=== PATIENT | female | born 1940 | race Caucasian/White ===

== ENCOUNTER → 2020-08-07 13:11 | Outpatient (BNVA) | payer MEDICARE, SELFPAY | PROVIDERS: PCP Family Medicine; Referring Provider Family Medicine; Visit Provider Internal Medicine Cardiovascular Disease | DX: I25.10 Atherosclerotic heart disease of native coronary artery without angina pectoris (principal); I73.9 Peripheral vascular disease, unspecified; I10 Essential (primary) hypertension; E11.9 Type 2 diabetes mellitus without complications; Z79.82 Long term (current) use of aspirin; Z79.899 Other long term (current) drug therapy | CPT/HCPCS: 93005; 99212 ==

== ENCOUNTER 2021-03-07 09:22 | Outpatient (REF) | payer MEDICARE, SELFPAY ==
--- NOTE | ~2021-03-07 | MM_ITS ---
EXAMINATION: MM SCREENING DIGITAL BREAST TOMOSYNTHESIS, BILATERAL CLINICAL INFORMATION: Screening. Asymptomatic. The lifetime risk of breast cancer based on the Tyrer-Cuzick Model is 2%. COMPARISON: Mammography: 10/28/2019, 05/03/2018, 04/03/2017, 03/21/2016 TECHNIQUE: Digital breast tomosynthesis is performed in both the craniocaudal and mediolateral oblique views along with computer-aided detection (CAD). Synthesized 2D images are generated from the tomosynthesis. FINDINGS: There are scattered areas of fibroglandular density (ACR BI-RADS breast composition Category b). There are no significant masses, abnormal calcifications, or other abnormalities. Parenchymal pattern is similar to prior exams. Asymmetric density central 3:00 left breast is stable to decreased since 2016. There is some fine dermal deodorant artifact right axilla on MLO view. The axilla and skin contours are unremarkable. MM/MM tomosynthesis screening BI IMPRESSION: No mammographic evidence of malignancy. ASSESSMENT: BI-RADS 2: Benign RECOMMENDATION: Routine annual mammography screening. This patient's information was entered into a reminder system with a target due date for their next mammogram.
== END 2021-03-07 09:23 | disposition home or self-care (01) ==
LOC: HO.MAMMO 09:22
PROVIDERS: Visit Provider Family Medicine
DX: Z12.31 Encounter for screening mammogram for malignant neoplasm of breast (principal)
CPT/HCPCS: 77063; 77067

== ENCOUNTER → 2021-09-05 10:15 | Outpatient (BNVA) | payer MEDICARE, SELFPAY | PROVIDERS: PCP Family Medicine; Visit Provider Internal Medicine Cardiovascular Disease | DX: I25.10 Atherosclerotic heart disease of native coronary artery without angina pectoris (principal); I10 Essential (primary) hypertension | CPT/HCPCS: 93005; 99212 ==

== ENCOUNTER 2022-06-17 10:18 | Outpatient (REF) | payer MEDICARE, SELFPAY ==
--- NOTE | ~2022-06-17 | MM_ITS ---
EXAMINATION: MM SCREENING DIGITAL BREAST TOMOSYNTHESIS, BILATERAL CLINICAL INFORMATION: Screening. Asymptomatic. The lifetime risk of breast cancer based on the Tyrer-Cuzick Model is 1%. COMPARISON: Mammography: April 06, 2021 and studies dating back to August 25, 2013 TECHNIQUE: Digital breast tomosynthesis is performed in both the craniocaudal and mediolateral oblique views along with computer-aided detection (CAD). Synthesized 2D images are generated from the tomosynthesis. FINDINGS: There are scattered areas of fibroglandular density (ACR BI-RADS breast composition Category b). There are no significant masses, abnormal calcifications, or other abnormalities. MM/MM tomosynthesis screening BI IMPRESSION: No significant changes from prior exam. ASSESSMENT: BI-RADS 1: Negative RECOMMENDATION: Routine annual mammography screening. This patient's information was entered into a reminder system with a target due date for their next mammogram.
== END 2022-06-17 10:19 | disposition home or self-care (01) ==
LOC: HO.MAMMO 10:18
PROVIDERS: PCP Family Medicine; Visit Provider Family Medicine
DX: Z12.31 Encounter for screening mammogram for malignant neoplasm of breast (principal)
CPT/HCPCS: 77063; 77067

== ENCOUNTER → 2022-09-08 12:37 | Outpatient (BNVA) | payer MEDICARE, SELFPAY | PROVIDERS: PCP Family Medicine; Referring Provider Family Medicine; Visit Provider Internal Medicine Cardiovascular Disease | DX: I25.118 Atherosclerotic heart disease of native coronary artery with other forms of angina pectoris (principal); I10 Essential (primary) hypertension | CPT/HCPCS: 93005; 99212 ==

== ENCOUNTER → 2022-09-18 09:13 | Outpatient (REF) | payer MEDICARE, SELFPAY ==
--- NOTE | 2022-09-18 09:16 | CA_ITS ---
Transthoracic Echocardiogram Patient (Last, First, Middle): Anna Herrera C Gender: Female Date of : 1940 Age: 82 Procedure Date: 09/18/2022 Procedure Type: Transthoracic Echocardiogram Location: OP Height: 170.18 cm Weight: 74.84 kg BSA: 1.86 m2 Heart Rate: bpm BP: 120 / 72 mmHg District Administrative Assistant: MONY Referring MD: Severino Melendez MD Symptoms: I20.8 - Other forms of angina pectoris Study Quality: Fair ECG Rhythm: Sinus Conclusions: - The left ventricular systolic function is low normal. The visually estimated ejection fraction is between 50-55%. - There is evidence of regional wall motion abnormalities. - No obvious valvular pathology seen on this study. Findings Left Ventricle Normal left ventricular cavity size. The left ventricular systolic function is low normal. The visually estimated ejection fraction is between 50-55%. There is evidence of regional wall motion abnormalities. E/E prime ratio is >15, consistent with elevated filling pressures. Evidence suggests grade I (mild) diastolic dysfunction. There is mild septal and mild basal asymmetric hypertrophy. LV peak GLS -17.8%. Wall Motion Rest Echo Findings The mid inferoseptal and basal inferolateral segments are hypokinetic. The basal inferior and basal inferoseptal segments are akinetic. Atria Both atria are normal in size. Aortic Valve There is a normal trileaflet aortic valve. There is no aortic valve stenosis. There is no aortic valve regurgitation. Mitral Valve The mitral valve appears normal. There is no mitral valve regurgitation. There is no mitral valve stenosis. Pulmonic Valve The pulmonic valve is likely normal. Tricuspid Valve Normal tricuspid valve structure. There is trace tricuspid valve regurgitation. There is no evidence of pulmonary hypertension. Great Vessels The asc aorta is normal in size. Venous The inferior vena cava is normal in size and collapses greater than 50% with inspiration. Pericardium/Pleural There is no evidence of pericardial effusion. Prior Study Comparison No significant change compared to prior study dated: 01/14/2018. Recommendations, Care & Conclusions No obvious valvular pathology seen on this study. Measurements 2D Linear Measurements IVSd: 1.04 0.6-0.9/0.6-1.0 cm LVIDd: 4.92 3.9-5.3/4.2-5.9 cm LVIDd Index: 2.65 2.4-3.2/2.2-3.1 cm/m2 LVIDs: 3.66 2.0-3.6 cm LVPWd: 0.99 0.7-1.1 cm LA Diam: 3.20 2.7-3.8/3.0-4.0 cm LAIDs Index: 1.72 1.5-2.3 cm/m2 LV Mass: 225.57 67-162/88-224 g LV Mass Index: 121.28 43-95/49-115 g/m2 LVOT Diam: 2.10 3.0+(-)1.3 cm 2D Systolic Function EF 4C: 54.50 >55% EF 2C: 56.10 >55% EF BiP: 55.90 >55% Mitral Valve MV Pk E: 0.90 MV PK A: 1.06 MV Decel Time: 181.00 E/A: 0.80 E'Lateral: 5.98 E'Medial: 5.44 E/E' Med: 16.50 E/E' Lat: 15.10 PHT: 53.00 MVA PHT: 4.15 Decel [place]: 4.96 Aortic Valve AoV Pk Errol: 1.28 AoV Mn Errol: 0.97 AoV VTI: 0.35 AoV Pk Grad: 7.00 Aov Mn Grad: 4.00 RON Cont.VTI: 2.19 LVOT LVOT Pk Errol: 0.89 LVOT Mn Errol: 0.59 LVOT VTI: 0.22 LVOT Pk Grad: 3.00 LVOT Mn Grad: 2.00 LVOT Diam: 2.10 LVOT Area: 3.46 Diastolic Function MV Pk E: 0.90 MV Pk A: 1.06 E/A: 0.80 E'Medial: 5.44 E/E' Med: 16.50 E' Laterial: 5.98 E/E' Lat: 15.10 Right Ventricle TAPSE (mm): 23.50 TVS' Errol: 13.50 Tricuspid Valve TR Pk Errol: 2.61 TR Pk Grad: 27.00 RA Press: 3.00 RVSP: 30.00 Great Vessels Aorta Sinus of Valsalva: 3.14 2.0-3.[address] [place]: 2.02 1.7-3.4 cm Ao Asc: 3.10 2.1-3.4 cm Updated in Other Vendor System with Status of Final Connor Perez MD electronically signed on 09/19/2022 2:32:46 PM with status of Final
== END ==
LOC: HO.CARD 09:13
PROVIDERS: Visit Provider Internal Medicine Cardiovascular Disease
DX: I20.8 Other forms of angina pectoris (principal)
CPT/HCPCS: 93306; 93356

== ENCOUNTER → 2022-09-26 08:48 | Outpatient (REF) | payer MEDICARE, SELFPAY ==
--- NOTE | ~2022-09-26 | NM_ITS ---
EXERCISE MYOCARDIAL PERFUSION STUDY INDICATION: Shortness discomfort, possible angina, assess for ischemia. TECHNIQUE: The patient was brought in for an exercise perfusion study on 09/26/2022. Patient performed exercise as per [facility] protocol and was injected 25 mCi of sestamibi once target heart rate was achieved. Images were obtained using the SPECT gamma camera interlaced with the gating device. Images were obtained in supine position. Resting perfusion study was performed on 09/30/2022. Patient was administered 25 mCi of sestamibi intravenously at rest. Images were then obtained in supine position. Total DLP 80mGy-cm. Images were processed with the software and compared side to side in short axis, horizontal long axis and vertical long axis views. FINDINGS: Raw images were reviewed. The stress perfusion study showed mildly diminished tracer uptake in the basal part of inferior/inferolateral wall but otherwise unremarkable. There is improvement with CT attenuation correction overall suggestive of diaphragmatic attenuation artifact. The gated study shows normal LV systolic function with calculated LVEF of 68%. LV cavity is normal in size. The gated study shows normal wall thickening and contraction of segments. Resting study shows diminished tracer uptake in the distal part of anterior wall. However, this area is well perfused during stress acquisition and hence most likely artifactual. Diminished tracer uptake in the basal inferior wall that is still seen with CT attenuation correction. Gating at rest reveals normal wall motion with ejection fraction at 60%. The findings are consistent with no clear reversible or fixed perfusion defects. NM/NM rhett perf SPECT rest & str IMPRESSION: 1. Myocardial perfusion imaging study shows no clear evidence of any ischemia or infarction. Likely normal perfusion. 2. Gated LVEF is 68% during stress and 60% during rest. 3. Transient ischemic dilatation not present. EKG part of the test reported separately. Positive for ischemia. Correlate clinically.
== END ==
LOC: HO.CARD 08:48
PROVIDERS: PCP Family Medicine; Visit Provider Internal Medicine Cardiovascular Disease
DX: I20.8 Other forms of angina pectoris (principal)
CPT/HCPCS: 78452; 93017; A9500; J0280; J2785

== ENCOUNTER → 2022-10-15 14:07 | Outpatient (BNVA) | payer MEDICARE, SELFPAY | PROVIDERS: PCP Family Medicine; Referring Provider Family Medicine; Visit Provider Nurse Practitioner Family | DX: I25.118 Atherosclerotic heart disease of native coronary artery with other forms of angina pectoris (principal); I10 Essential (primary) hypertension; E78.5 Hyperlipidemia, unspecified; E11.9 Type 2 diabetes mellitus without complications; Z95.5 Presence of coronary angioplasty implant and graft | CPT/HCPCS: 99212 ==

== ENCOUNTER 2023-03-18 08:56 | Outpatient (REF) | payer MEDICARE, SELFPAY ==
[2023-03-18 09:11] LABS: MANUAL DIFF FLAG NO
[2023-03-18 09:30] LABS: Basophils Percent Auto 0.4 % (0-2); Eosinophils Absolute Auto 0.1 X10*3/uL (0.0-0.4); Eosinophils Percent Auto 1.7 % (0-4); Hematocrit 40.9 % (37.0-47.0); Hemoglobin 12.9 g/dl (12.0-16.0); Imm Gran Abs Auto 0.02 X10*3/uL (0.00-0.03); Imm Gran Pct Auto 0.4 % (0.0-0.4); Lymphocytes Absolute Auto 1.3 X10*3/uL (1.2-4.9); Lymphocytes Percent Auto 26.3 % (20-40); Mean Corpuscular HGB Conc 31.5 g/dl (31.0-35.0); Mean Corpuscular Hemoglobin 28.7 pg (27.0-33.0); Mean Corpuscular Volume 90.9 fL (80.0-98.0); Mean Platelet Volume 10.1 fL (9.4-12.3); Monocytes Absolute Auto 0.5 X10*3/uL (0.1-1.2); Monocytes Percent Auto 10.9 % (2-11); Neutrophils Absolute Auto 2.9 x10*3/uL (2.0-8.3); Neutrophils Percent Auto 60.3 % (45-73); Platelet Count 185 X10*3/uL (160-400); Red Cell Distribution Width 12.4 % (11.0-16.0); White Blood Count 4.8 X10*3/uL (4.8-10.8)
[2023-03-18 09:39] LABS: Estimated Average Glucose 157 mg/dL; Hemoglobin A1c % 7.1 %
[2023-03-18 10:16] LABS: Anion Gap 12 (12-20); Blood Urea Nitrogen 30 mg/dL (9-16); Carbon Dioxide 25 mmol/L (22-29); Chloride 108 mmol/L (96-108); Estimated Glomerular Filt Rate 40; Glucose Fasting 135 mg/dL (60-99); Potassium 4.8 mmol/L (3.3-5.1); Sodium 140 mmol/L (135-145)
[2023-03-18 10:36] LABS: Vitamin B12 432 pg/mL (200-900)
== END 2023-03-18 08:57 | disposition home or self-care (01) ==
LOC: HO.LAB 08:56
PROVIDERS: PCP Family Medicine; Visit Provider Family Medicine
DX: G62.9 Polyneuropathy, unspecified (principal); E11.9 Type 2 diabetes mellitus without complications; I10 Essential (primary) hypertension; R53.83 Other fatigue
CPT/HCPCS: 36415; 80051; 82565; 82607; 82947; 83036; 84520; 85025

== ENCOUNTER → 2023-04-08 09:40 | Outpatient (BNVA) | payer MEDICARE, SELFPAY | PROVIDERS: PCP Family Medicine; Referring Provider Family Medicine; Visit Provider Internal Medicine Cardiovascular Disease | DX: I25.10 Atherosclerotic heart disease of native coronary artery without angina pectoris (principal); I10 Essential (primary) hypertension | CPT/HCPCS: 99212 ==

== ENCOUNTER → 2023-07-09 23:59 | Outpatient (BNV) | payer MEDICARE, SELFPAY | PROVIDERS: PCP Family Medicine; Visit Provider Internal Medicine Cardiovascular Disease | DX: I21.4 Non-ST elevation (NSTEMI) myocardial infarction (principal) | CPT/HCPCS: 92928; 92978; 93458; 99152 ==

== ENCOUNTER 2023-07-27 15:57 | Outpatient (REF) | payer MEDICARE, SELFPAY ==
[2023-07-27 17:49] LABS: Alanine Aminotransferase 12 U/L (0-31); Anion Gap 13 (12-20); Aspartate Amino Transferase 13 U/L (5-31); Blood Urea Nitrogen 31 mg/dL (9-16); Carbon Dioxide 24 mmol/L (22-29); Chloride 110 mmol/L (96-108); Estimated Glomerular Filt Rate 22; Potassium 4.9 mmol/L (3.3-5.1); Sodium 142 mmol/L (135-145)
== END 2023-07-27 15:58 | disposition home or self-care (01) ==
LOC: HO.LAB 15:57
PROVIDERS: PCP Family Medicine; Visit Provider Family Medicine
DX: I10 Essential (primary) hypertension (principal); E78.00 Pure hypercholesterolemia, unspecified; D64.9 Anemia, unspecified; Z79.899 Other long term (current) drug therapy
CPT/HCPCS: 36415; 80051; 82550; 82565; 84450; 84460; 84520

== ENCOUNTER 2023-08-06 12:36 | Outpatient (AMB) | payer MEDICARE, SELFPAY ==
[2023-08-06 12:47] VITALS: BP 130/70; PULSE 80; BMI 25.5
--- NOTE | 2023-08-06 12:47 | A.OFFVIS_ITS ---
Intake Vital Signs 08/06/23 12:47 Height 5 ft 7 in Weight 163 lb 2.273 oz BMI 25.5 BP 130/70 Blood Pressure Location Lt brachial Position Sitting Pulse 80 Intake Visit Reasons: F/U Intake Note: Follow-up [facility] dc with ekg c/o dizziness Chemical Supervisor Required: No Allergies metformin Allergy (Unknown, Verified 10/15/22 14:21) gi lisinopril Adverse Reaction (Unknown, Verified 10/15/22 14:21) cough Statins Support Allergy (Unknown, Uncoded 06/09/19 00:00) mx Medication List - Last Reconciled 08/06/23 by Severino Melendez MD aspirin 81 mg PO DAILY clopidogrel (Plavix) 75 mg PO DAILY furosemide 20 mg PO ONCE PRN 90 days gabapentin 300 mg PO DAILY glimepiride 4 mg PO QAM rosuvastatin 40 mg PO DAILY sacubitril-valsartan 24-26 mg (Entresto) 1 tab PO BID 90 days HPI HPI Comments History of Present Illness Details Anna comes for follow-up after recent hospitalization with urosepsis with E coli bacteremia. Subsequently she developed dynamic EKG changes and elevated troponins consistent with NSTEMI. Echocardiogram done at that time showed LVEF of about 35% with regional wall motion abnormality and subsequent cardiac catheterization which showed diffuse coronary disease predominantly in the LAD system undergoing drug-eluting stent to mid to distal LAD. She also has diffuse and small-vessel disease in the OM branches as well as the diagonal branches. The RCA stent was patent. Since then she has been started on Entresto and carvedilol therapy not tolerating the therapy well. She has been having symptoms of lightheadedness and low blood pressure. We then advised her to come of the Entresto therapy due to elevated creatinine. Although she notices that she was better of carvedilol therapy. She is currently taking Entresto not taking carvedilol therapy. She denies any significant shortness of breath, orthopnea, PND, leg edema. Denies any anginal symptoms. Continues to have symptoms of lightheadedness. Comes for follow-up. Currently taking dual anti platelet therapy. She also complains of abdominal discomfort about 1-2 hours after she eats, these are new symptoms since the hospitalization. [facility] Medical History Exertional angina Hyperlipidemia HTN (hypertension) PVD (peripheral vascular disease) Diabetes mellitus CAD (coronary artery disease) Surgical History Stented coronary artery Review of Systems Const Denies chills, Denies fatigue, Denies fever(s), Denies frequent falls, Denies weakness, Denies weight gain and Denies weight loss ENT Denies dizziness Card Denies chest pain, Denies leg edema, Denies lightheadedness, Denies palpitations, Denies dyspnea, Denies dyspnea on exertion, Denies orthopnea and Denies other (loss of consciousness) Resp Denies cough, Denies dyspnea and Denies dyspnea on exertion GI Denies hematochezia and Denies change in stool character Musc Denies abnormal gait, Denies muscle weakness, Denies numbness, Denies radiating pain into limb and Denies tingling Neuro Denies abnormal gait, Denies dizziness, Denies frequent falls, Denies numbness, Denies tingling and Denies weakness Endo Denies fatigue and Denies palpitations Physical Exam Vital Signs: Last Vital Signs Pulse 80 08/06/23 12:47 BP 130/70 08/06/23 12:47 BMI result Body Mass Index 25.5 Const General: cooperative, healthy appearing, comfortable and no acute distress Orientation/consciousness: patient oriented x3 Neck Neck: Yes normal visual inspection and Yes no JVD Resp Effort & Inspection: normal respiratory effort Auscultation: clear to auscultation bilaterally, no crackles, no rales, no rhonchi and no wheezes Cardio Jugular venous distension: no JVD Rate: regular rate Rhythm: regular rhythm Heart sounds: S1 normal heart sound present, S2 normal heart sound present, no gallops, no murmurs and no rubs Bruits: carotid bruit bilaterally GI Inspection: Yes normal to inspection Neuro General: patient oriented x3 Extrem General: Yes normal to inspection Psych Appearance: grossly normal Mental Status: mental status grossly normal Speech and movement: Normal speech and movement present Office Procedures EKG Details: EKG shows normal sinus rhythm with PVCs with no significant Q-waves [id number], Complete Assessment & Plan Assessment & Plan (1) Ischemic cardiomyopathy: Code(s): I25.5 - Ischemic cardiomyopathy Plan: Patient with recent hospitalization with urosepsis subsequently developed dynamic EKG changes as well as LV systolic dysfunction with undergoing revascularization to LAD territory although component of her cardiomyopathy could be stress-induced. At this point time would advised to repeat limited echocardiogram in 4 weeks time. Recommend to stop Entresto as well as carvedilol therapy given that she is not tolerating them with low blood pressure. However she requires neurohormonal modulation will switch her to low- dose valsartan 40 mg b.i.d. and Toprol XL 25 mg daily. No signs or symptoms of heart failure. Advised to maintain adequate oral intake of fluids. Follow-up renal function in the near future. Signs and symptoms of heart failure were discussed and take diuretics as need be. (2) CAD (coronary artery disease): Code(s): I25.10 - Atherosclerotic heart disease of [place] coronary artery without angina pectoris Plan: Diffuse and significant CAD with drug-eluting stent to LAD with patent stents to the RCA for recent NSTEMI due to acute medical illness. Continue dual antipla telet therapy for 1 year uninterrupted. Continue aggressive vascular risk factor modification. Blood pressure is well optimized. Continue high-intensity statin therapy with target goal LDL less than 70 mg/dL. Advised lipid panel in 4 weeks time. Recommend phase 2 cardiac rehabilitation (3) Mesenteric angina: Code(s): K55.1 - Chronic vascular disorders of intestine Plan: Symptoms highly suggestive of mesenteric angina. Suggest abdominal vascular ultrasound to evaluate for the same. Further treatment based on the findings. If ultrasound is nondiagnostic may require abdominal CT runoff although given elevated creatinine will have to wait till her renal function improves. Will follow up in the clinic in 6 weeks time, sooner p.r.n.. Thank you for allowing me to partake in her care Orders: Orders Lipid Panel 4 Weeks I25.10 - Atherosclerotic heart disease of [place] coronary artery without angina pectoris US abdominal aortic aneurysm Today K55.1 - Chronic vascular disorders of intestine CA echo limited 4 Weeks I25.5 - Ischemic cardiomyopathy, I42.9 - Cardiomyopathy, unspecified Basic Metabolic Panel 4 Weeks I25.10 - Atherosclerotic heart disease of [place] coronary artery without angina pectoris Medications: New metoprolol succinate ER (Toprol XL) 25 mg PO DAILY 30 tabs 4RF valsartan 40 mg PO BID 60 tabs 4RF Discontinued sacubitril-valsartan 24-26 mg (Entresto) Discontinued Reason: Doctor's Order 1 tab PO BID 90 days 180 tabs 3RF Coding Level of Care Code Est Pt Level 4 (65687) Diagnoses Ischemic cardiomyopathy I25.5 CAD (coronary artery disease) I25.10 Mesenteric angina K55.1 CPT Codes EKG - CPT: 98943-[id number], Complete ([id number])
== END 2023-08-06 13:12 | disposition home or self-care (01) ==
PROVIDERS: PCP Family Medicine; Visit Provider Internal Medicine Cardiovascular Disease
DX: I25.5 Ischemic cardiomyopathy (principal); I25.10 Atherosclerotic heart disease of native coronary artery without angina pectoris; K55.1 Chronic vascular disorders of intestine
CPT/HCPCS: 93010; 99214

== ENCOUNTER → 2023-08-06 12:36 | Outpatient (BNVA) | payer MEDICARE, SELFPAY | PROVIDERS: PCP Family Medicine; Visit Provider Internal Medicine Cardiovascular Disease | DX: I25.5 Ischemic cardiomyopathy (principal); I25.10 Atherosclerotic heart disease of native coronary artery without angina pectoris; I10 Essential (primary) hypertension; K55.1 Chronic vascular disorders of intestine; Z95.5 Presence of coronary angioplasty implant and graft | CPT/HCPCS: 93005; 99212 ==

== ENCOUNTER 2023-09-04 11:39 | Outpatient (REF) | payer MEDICARE, SELFPAY ==
[2023-09-04 11:53] LABS: MANUAL DIFF FLAG NO
[2023-09-04 12:20] LABS: Basophils Percent Auto 0.4 % (0-2); Eosinophils Absolute Auto 0.1 X10*3/uL (0.0-0.4); Eosinophils Percent Auto 1.6 % (0-4); Hematocrit 32.6 % (37.0-47.0); Hemoglobin 10.1 g/dl (12.0-16.0); Imm Gran Abs Auto 0.01 X10*3/uL (0.00-0.03); Imm Gran Pct Auto 0.2 % (0.0-0.4); Lymphocytes Absolute Auto 1.2 X10*3/uL (1.2-4.9); Lymphocytes Percent Auto 21.2 % (20-40); Mean Corpuscular Hemoglobin 28.1 pg (27.0-33.0); Mean Corpuscular Volume 90.6 fL (80.0-98.0); Mean Platelet Volume 10.4 fL (9.4-12.3); Monocytes Absolute Auto 0.6 X10*3/uL (0.1-1.2); Monocytes Percent Auto 10.4 % (2-11); Neutrophils Absolute Auto 3.7 x10*3/uL (2.0-8.3); Neutrophils Percent Auto 66.2 % (45-73); Platelet Count 156 X10*3/uL (160-400); Red Cell Distribution Width 13.4 % (11.0-16.0); White Blood Count 5.6 X10*3/uL (4.8-10.8)
[2023-09-04 12:52] LABS: Estimated Average Glucose 174 mg/dL; Hemoglobin A1c % 7.7 % (<6.0)
[2023-09-04 12:53] LABS: Blood Urea Nitrogen 44 mg/dL (9-16); C Reactive Protein 4.53 mg/dL (< or = 0.50); Estimated Glomerular Filt Rate 16; Glucose Fasting 171 mg/dL (60-99)
[2023-09-04 13:01] LABS: Erythrocyte Sedimentation Rate 39 MM/HR (0-20)
[2023-09-04 13:12] LABS: Microalbum/Creatinine Ratio Ur 89.5 ug/mg cr (<30)
[2023-09-04 13:12] LABS: Free T4 (Free Thyroxine) 0.81 ng/dL (0.71-1.85)
== END 2023-09-04 11:40 | disposition home or self-care (01) ==
LOC: HO.LAB 11:39
PROVIDERS: PCP Family Medicine; Visit Provider Internal Medicine Cardiovascular Disease
DX: E11.9 Type 2 diabetes mellitus without complications (principal); R53.83 Other fatigue
CPT/HCPCS: 36415; 82043; 82565; 82570; 82947; 83036; 84439; 84520; 85025; 85652; 86140

== ENCOUNTER 2023-09-09 07:40 | Outpatient (REF) | payer MEDICARE, SELFPAY ==
--- NOTE | ~2023-09-09 | US_ITS ---
EXAMINATION: Ultrasound abdominal arterial Doppler CLINICAL INFORMATION: Mesenteric angina COMPARISON: None. TECHNIQUE: Doppler abdominal ultrasound was done to evaluate the visceral arteries for celiac artery compression syndrome. Grayscale, color Doppler, and spectral Doppler evaluation was performed with provocative maneuvers. FINDINGS: ABDOMINAL AORTA: Proximal to SMA: PSV 69 cm/s. Normal waveform. Distal to SMA: PSV 71 cm/s. Normal waveform. CELIAC ARTERY: Supine inspiration: PSV 318 cm/s. Monophasic waveform. Supine expiration: PSV 222 cm/s. Monophasic waveform. Erect inspiration: PSV 371 cm/s. Monophasic waveform. Erect expiration: PSV 422 cm/s. Monophasic waveform. SUPERIOR MESENTERIC ARTERY: Proximal: PSV 332 cm/s. Monophasic waveform. Mid: PSV 200 cm/s. Monophasic waveform. Distal: PSV 147 cm/s. Monophasic waveform. DA: Not seen. SPLENIC ARTERY: PSV 171 cm/s. Normal waveform. HEPATIC ARTERY: PSV 209 cm/s. Normal waveform. 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 DA not visible. These findings would predispose to mesenteric ischemia. Recommend CTA of the abdomen without and with contrast if clinically indicated.
--- NOTE | 2023-09-09 08:58 | CA_ITS ---
Transthoracic Echocardiogram Patient (Last, First, Middle): Anna Anderson C Gender: Female Date of : 1940 Age: 83 Procedure Date: 09/09/2023 Procedure Type: Transthoracic Echocardiogram Location: OP Height: 170.18 cm Weight: 73.48 kg BSA: 1.85 m2 Heart Rate: bpm BP: 125 / 57 mmHg Tobacco Blender: MONY Referring MD: Severino Melendez MD Symptoms: I42.9 - Cardiomyopathy, unspecified Study Quality: Adequate Conclusions: - The left ventricular systolic function is normal. The calculated ejection fraction is 57% by biplane method. - The basal inferoseptal and basal inferolateral segments are akinetic. - The basal inferior segment is dyskinetic. Findings Left Ventricle Normal left ventricular cavity size. There is mildly increased left ventricular wall thickness. The left ventricular systolic function is normal. The calculated ejection fraction is 57% by biplane method. There is evidence of regional wall motion abnormalities. LV peak GLS -13.7%. Wall Motion Rest Echo Findings The basal inferoseptal and basal inferolateral segments are akinetic. The basal inferior segment is dyskinetic. Venous The inferior vena cava is normal in size and collapses greater than 50% with inspiration. Prior Study Comparison Changes noted compared to prior study dated: 09/18/2022. Basal inferior wall looks dyskinetic, but image quality is also better. Prior images reviewed. Measurements 2D Linear Measurements IVSd: 1.08 0.6-0.9/0.6-1.0 cm LVIDd: 4.79 3.9-5.3/4.2-5.9 cm LVIDd Index: 2.59 2.4-3.2/2.2-3.1 cm/m2 LVIDs: 3.41 2.0-3.6 cm LVPWd: 1.08 0.7-1.1 cm LV Mass: 234.83 67-162/88-224 g LV Mass Index: 126.94 43-95/49-115 g/m2 LVOT Diam: 2.00 3.0+(-)1.3 cm 2D Systolic Function EF 4C: 58.30 >55% EF 2C: 53.20 >55% EF BiP: 57.10 >55% LVOT LVOT Pk Errol: 0.89 LVOT Mn Errol: 0.62 LVOT VTI: 0.19 LVOT Pk Grad: 3.00 LVOT Mn Grad: 2.00 LVOT Diam: 2.00 LVOT Area: 3.14 Tricuspid Valve RA Press: 3.00 Updated in Other Vendor System with Status of Final Connor Perez MD electronically signed on 09/10/2023 11:16:29 AM with status of Final
== END 2023-09-09 07:41 | disposition home or self-care (01) ==
LOC: HO.US 07:40
PROVIDERS: PCP Family Medicine; Visit Provider Internal Medicine Cardiovascular Disease
DX: I25.5 Ischemic cardiomyopathy (principal); I42.9 Cardiomyopathy, unspecified
CPT/HCPCS: 93308; 93356; 93976

== ENCOUNTER → 2023-09-09 08:58 | Outpatient (BNV) | payer MEDICARE, SELFPAY | PROVIDERS: PCP Family Medicine; Visit Provider Internal Medicine | DX: I42.9 Cardiomyopathy, unspecified (principal) | CPT/HCPCS: 93308 ==

== ENCOUNTER 2023-09-15 08:34 | Outpatient (REF) | payer MEDICARE, SELFPAY ==
[2023-09-15 09:32] LABS: Alanine Aminotransferase 11 U/L (0-31); Anion Gap 14 (12-20); Aspartate Amino Transferase 12 U/L (5-31); Blood Urea Nitrogen 36 mg/dL (9-16); Carbon Dioxide 26 mmol/L (22-29); Chloride 105 mmol/L (96-108); Estimated Glomerular Filt Rate 17; Magnesium 2.2 mg/dL (1.6-2.6); Potassium 4.8 mmol/L (3.3-5.1); Sodium 140 mmol/L (135-145)
[2023-09-15 16:16] LABS: MANUAL DIFF FLAG NO
[2023-09-15 17:07] LABS: Basophils Percent Auto 0.4 % (0-2); Eosinophils Absolute Auto 0.1 X10*3/uL (0.0-0.4); Eosinophils Percent Auto 1.1 % (0-4); Hematocrit 33.3 % (37.0-47.0); Hemoglobin 10.3 g/dl (12.0-16.0); Imm Gran Abs Auto 0.01 X10*3/uL (0.00-0.03); Imm Gran Pct Auto 0.2 % (0.0-0.4); Lymphocytes Absolute Auto 1.4 X10*3/uL (1.2-4.9); Lymphocytes Percent Auto 25.5 % (20-40); Mean Corpuscular HGB Conc 30.9 g/dl (31.0-35.0); Mean Corpuscular Hemoglobin 27.7 pg (27.0-33.0); Mean Corpuscular Volume 89.5 fL (80.0-98.0); Monocytes Absolute Auto 0.5 X10*3/uL (0.1-1.2); Monocytes Percent Auto 8.3 % (2-11); Neutrophils Absolute Auto 3.5 x10*3/uL (2.0-8.3); Neutrophils Percent Auto 64.5 % (45-73); Platelet Count 236 X10*3/uL (160-400); Red Blood Count 3.72 X10*6/uL (4.20-5.50); Red Cell Distribution Width 13.3 % (11.0-16.0); White Blood Count 5.5 X10*3/uL (4.8-10.8)
[2023-09-15 20:06] LABS: Anion Gap 16 (12-20); Blood Urea Nitrogen 36 mg/dL (9-16); Calcium 9.6 mg/dL (8.4-10.2); Carbon Dioxide 24 mmol/L (22-29); Chloride 105 mmol/L (96-108); Cholesterol 235 mg/dL (<200); Estimated Glomerular Filt Rate 17; Glucose Random 180 mg/dL (60-115); HDL Cholesterol 56 mg/dL (>40); LDL Cholesterol Calculated 161 mg/dL (<100); Potassium 4.9 mmol/L (3.3-5.1); Sodium 140 mmol/L (135-145); Triglycerides 93 mg/dL (<150)
== END 2023-09-15 08:35 | disposition home or self-care (01) ==
LOC: HO.LAB 08:34
PROVIDERS: Absent Provider Internal Medicine Cardiovascular Disease; PCP Family Medicine; Visit Provider Family Medicine
DX: I25.10 Atherosclerotic heart disease of native coronary artery without angina pectoris (principal); D64.9 Anemia, unspecified; I10 Essential (primary) hypertension; N17.9 Acute kidney failure, unspecified; R11.0 Nausea
CPT/HCPCS: 36415; 80048; 80051; 80061; 82565; 83735; 84450; 84460; 84520; 85025

== ENCOUNTER 2023-09-16 11:11 | Outpatient (AMB) | payer MEDICARE, SELFPAY ==
[2023-09-16 11:14] VITALS: BP 140/58; PULSE 58; BMI 25.3
--- NOTE | 2023-09-16 11:14 | MHC.OFFVIS ---
Intake Vital Signs 09/16/23 11:14 Height 5 ft 7 in Weight 161 lb 13.109 oz BMI 25.3 BP 140/58 H Blood Pressure Location Lt brachial Position Sitting Pulse 58 Pulse Source Pulse Oximeter Intake Visit Reasons: 6 wk fu after labs/ltd echo Intake Note: 6 wk f/up pt its feeling good Curtain Mender Required: No Accompanied by: Self / Same As Patient Allergies metformin Allergy (Unknown, Verified 09/16/23 11:16) gi lisinopril Adverse Reaction (Unknown, Verified 09/16/23 11:16) cough Statins Support Allergy (Unknown, Uncoded 06/09/19 00:00) mx Medication List - Last Reconciled 09/16/23 by Severino Melendez MD aspirin 81 mg PO DAILY clopidogrel (Plavix) 75 mg PO DAILY gabapentin 300 mg PO DAILY HPI HPI Comments History of Present Illness Details Anna comes for follow-up. She is currently off all vasoactive medications and says the lightheadedness has improved. Unfortunately her creatinine is still remains elevated. She denies any heart failure symptoms. Denies any exertional chest pain. She is vague about her mesenteric symptoms, says that sometimes she has postprandial discomfort but this morning she did not. 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 She is taking dual antiplatelet therapy regularly. Her most recent echocardiogram shows normalization for LV ejection fraction with wall motion abnormality in the circumflex territory [facility] Medical History Exertional angina Hyperlipidemia HTN (hypertension) PVD (peripheral vascular disease) Diabetes mellitus CAD (coronary artery disease) Surgical History Stented coronary artery Review of Systems Const Reports chills, Reports fatigue, Reports fever(s), Reports frequent falls, Reports weakness, Reports weight gain and Reports weight loss ENT Reports dizziness Card Reports chest pain, Reports leg edema, Reports lightheadedness, Reports palpitations, Reports dyspnea and Reports dyspnea on exertion Resp Reports cough, Reports dyspnea and Reports dyspnea on exertion GI Reports hematochezia Musc Reports abnormal gait, Reports muscle weakness, Reports numbness, Reports radiating pain into limb and Reports tingling Neuro Reports abnormal gait, Reports dizziness, Reports frequent falls, Reports numbness, Reports tingling and Reports weakness Endo Reports fatigue and Reports palpitations Physical Exam Vital Signs: Last Vital Signs Pulse 58 09/16/23 11:14 BP 140/58 H 09/16/23 11:14 BMI result Body Mass Index 25.3 Const General: cooperative, healthy appearing, comfortable and no acute distress Orientation/consciousness: patient oriented x3 Neck Neck: Yes normal visual inspection and Yes no JVD Resp Effort & Inspection: normal respiratory effort Auscultation: clear to auscultation bilaterally, no crackles, no rales, no rhonchi and no wheezes Cardio Jugular venous distension: no JVD Rate: regular rate Rhythm: regular rhythm Heart sounds: S1 normal heart sound present, S2 normal heart sound present, no gallops, no murmurs and no rubs Bruits: carotid bruit bilaterally GI Inspection: Yes normal to inspection Neuro General: patient oriented x3 Extrem General: Yes normal to inspection Psych Appearance: grossly normal Mental Status: mental status grossly normal Speech and movement: Normal speech and movement present Assessment & Plan Assessment & Plan (1) CAD (coronary artery disease): Code(s): I25.10 - Atherosclerotic heart disease of [place] coronary artery without angina pectoris Plan: Significant and diffuse [place] vascular atherosclerosis with mesenteric stenosis, coronary artery disease status post revascularization, peripheral vascular disease, possible high likelihood of renal artery stenosis. Patient is currently on dual antiplatelet therapy due to recent acute coronary syndrome. Could not tolerate any other medications at this point time. Blood pressure is labile but within adequate range with no persistent significant hypertension. Her LDL is not well optimized. She has intolerance to statins in the past with significant life-limiting muscular discomfort. At this point time I strongly suggest her to be on PCSK9 inhibitor therapy to prevent further vascular atherosclerotic events. Target goal LDL closer to 60 mg/dL. Blood pressure is optimal I would not change it. Diabetes under your care although she is currently not on any medications. Strongly recommend Nephrology consultation and also renal duplex to evaluate for renal artery stenosis. (2) Ischemic cardiomyopathy: Code(s): I25.5 - Ischemic cardiomyopathy Plan: Ischemic cardiomyopathy in the setting of acute coronary syndrome. Since revascularization to the LAD territory LV ejection fraction has improved. Good prognosis with this was discussed. This is despite patient being off neurohormonal modulation. Most likely suggest stunning of the myocardium at the time of acute coronary syndrome. High risk for recurrent events and development of cardiomyopathy. However at this point time given her advanced renal dysfunction would avoid any medication and also due to poor tolerance of hemodynamic perspective. Advised to monitor blood pressure closely at home. Will follow up in the clinic in 3 months time, sooner p.r.n.. Thank you for allowing me to partake in her care Coding Level of Care Code Est Pt Level 4 (39160) Diagnoses CAD (coronary artery disease) I25.10 Ischemic cardiomyopathy I25.5
== END 2023-09-16 11:38 | disposition home or self-care (01) ==
PROVIDERS: PCP Family Medicine; Visit Provider Internal Medicine Cardiovascular Disease
DX: I25.10 Atherosclerotic heart disease of native coronary artery without angina pectoris (principal); I25.5 Ischemic cardiomyopathy
CPT/HCPCS: 99214

== ENCOUNTER → 2023-09-16 11:11 | Outpatient (BNVA) | payer MEDICARE, SELFPAY | PROVIDERS: PCP Family Medicine; Visit Provider Internal Medicine Cardiovascular Disease | DX: I25.10 Atherosclerotic heart disease of native coronary artery without angina pectoris (principal); I25.5 Ischemic cardiomyopathy | CPT/HCPCS: 99212 ==

== ENCOUNTER 2023-10-14 09:36 | Outpatient (REF) | payer MEDICARE, SELFPAY ==
[2023-10-14 09:55] LABS: MANUAL DIFF FLAG NO
[2023-10-14 10:02] LABS: Basophils Percent Auto 0.4 % (0-2); Eosinophils Absolute Auto 0.1 X10*3/uL (0.0-0.4); Eosinophils Percent Auto 2.6 % (0-4); Hematocrit 34.1 % (37.0-47.0); Hemoglobin 11.1 g/dl (12.0-16.0); Imm Gran Abs Auto 0.01 X10*3/uL (0.00-0.03); Imm Gran Pct Auto 0.2 % (0.0-0.4); Lymphocytes Absolute Auto 1.2 X10*3/uL (1.2-4.9); Lymphocytes Percent Auto 22.1 % (20-40); Mean Corpuscular HGB Conc 32.6 g/dl (31.0-35.0); Mean Corpuscular Hemoglobin 29.3 pg (27.0-33.0); Mean Platelet Volume 10.7 fL (9.4-12.3); Monocytes Absolute Auto 0.5 X10*3/uL (0.1-1.2); Monocytes Percent Auto 10.1 % (2-11); Neutrophils Absolute Auto 3.5 x10*3/uL (2.0-8.3); Neutrophils Percent Auto 64.6 % (45-73); Platelet Count 193 X10*3/uL (160-400); Red Blood Count 3.79 X10*6/uL (4.20-5.50); Red Cell Distribution Width 13.5 % (11.0-16.0); White Blood Count 5.4 X10*3/uL (4.8-10.8)
[2023-10-14 10:09] LABS: Estimated Average Glucose 177 mg/dL; Hemoglobin A1c % 7.8 % (<6.0)
[2023-10-14 10:59] LABS: Anion Gap 15 (12-20); Blood Urea Nitrogen 29 mg/dL (9-16); Carbon Dioxide 24 mmol/L (22-29); Chloride 109 mmol/L (96-108); Estimated Glomerular Filt Rate 23; Glucose Fasting 185 mg/dL (60-99); Potassium 4.5 mmol/L (3.3-5.1); Sodium 143 mmol/L (135-145)
== END 2023-10-14 09:37 | disposition home or self-care (01) ==
LOC: HO.LAB 09:36
PROVIDERS: PCP Family Medicine; Visit Provider Family Medicine
DX: I10 Essential (primary) hypertension (principal); E11.9 Type 2 diabetes mellitus without complications; D64.9 Anemia, unspecified
CPT/HCPCS: 36415; 80051; 82565; 82947; 83036; 84520; 85025

== ENCOUNTER 2023-10-22 10:17 | Outpatient (AMB) | payer MEDICARE, SELFPAY ==
[2023-10-22 10:21] VITALS: BP 134/72; PULSE 78; O2SAT 96; BMI 25.1
--- NOTE | 2023-10-22 10:21 | MHC.OFFVIS ---
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 Pt states she is feeling well and denies any stomach pain, nausea, or any othher concerns at this time. 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 She reports that this all began after a hospital stay. She had reported sepsis and was admitted to [facility] for an extended period. She reports that she was unable to tolerate p.o. intake for nearly 13 days. She had lost a significant amount of weight during that. But has remained steady in her weight since that time. Prior to this event she reports no real difficulty with her p.o. intake but has never been able to really tolerate spicy foods. She he currently is able to tolerate a diet. She denies any food fear. She has had no weight loss. She is able to tolerate a carbohydrate rich meal such as pasta and denies any pain subsequent to that in particular a 1/2 hour post meal. She reports no difficulty at the current time. Of note she has a remote history of smoking where she quit in 2000 and prior to that was smoking about 1 pack per day. She has been a diabetic for nearly 15 years. She now presents to us for vascular evaluation. [facility] Medical History Exertional angina Hyperlipidemia HTN (hypertension) PVD (peripheral vascular disease) Diabetes mellitus CAD (coronary artery disease) Surgical History Stented coronary artery Social History Household Members: Children Housing: House Alcohol intake: never Patient Tobacco Use Status: Former Tobacco user Use of substances other than those prescribed or required for medical reasons: No Review of Systems Const All systems reviewed & are unremarkable except as noted in HPI and below Reports no additional complaints ENT Reports Normal hearing present Card Denies chest pain, Denies chest pain at rest, Denies chest pain with activity and Denies pedal edema Resp Denies cough GI Denies abdominal pain Musc Denies abnormal gait, Denies muscle cramps and Denies radiating pain into limb Skin/Breast Denies skin ulcer and Denies wounds Neuro Reports Normal hearing present and Denies abnormal gait Psych Reports no additional complaints Physical Exam Vital Signs: Last Vital Signs Pulse 78 10/22/23 10:21 BP 134/72 10/22/23 10:21 Pulse Ox 96 10/22/23 10:21 Oxygen Delivery Method Room Air 10/22/23 10:21 BMI result Body Mass Index 25.1 Const General: cooperative, healthy appearing and comfortable Orientation/consciousness: oriented to person, oriented to place and oriented to time HEENT Head: Yes normal to inspection Neck Neck: Yes normal visual inspection Carotids: no bruits Chest Chest palpation & inspection: normal inspection of the chest Resp Effort & Inspection: normal respiratory effort and able to speak in complete sentences Auscultation: clear to auscultation bilaterally, no crackles, no rales, no rhonchi and no wheezes Cardio Rate: regular rate Rhythm: regular rhythm Heart sounds: S1 normal heart sound present and S2 normal heart sound present Bruits: no carotid bruits Peripheral pulses: Peripheral pulses 2+ throughout GI Inspection: Yes normal to inspection Skin Wounds: no wounds Hair: normal Neuro General: oriented to person, oriented to place and oriented to time Cranial nerves: Yes CN's II-XII intact bilaterally and Yes Normal hearing present Cognition (Neuro): normal cognition Motor exam (neuro): 5/5 motor strength present throughout Extrem Other: venous exam: No significant superficial varicosities or spider telangiectasias, minimal edema General: No clubbing, No cyanosis and No edema Psych Appearance: grossly normal Mental Status: mental status grossly normal Speech and movement: Normal speech and movement present Results Reviewed Results Reviewed: Abdominal ultrasound dated 09/09/2023 demonstrates that the celiac and superior mesenteric artery we have monophasic waveforms. Assessment & Plan Assessment & Plan (1) Mesenteric ischemia: Code(s): K55.9 - Vascular disorder of intestine, unspecified Plan: In short there is ultrasound evidence of mesenteric ischemia. Clinically at the current time it does not appear that this is the case. She is tolerating a diet and maintaining weight appropriately. I have taken the liberty of ordering a CT angiogram to better evaluate this. She will follow up with us after testing. Thank you for allowing us to assist in her care. If there are any questions or concerns please do not hesitate to contact us. Orders: Orders Blood Urea Nitrogen Today K55.9 - Vascular disorder of intestine, unspecified Creatinine Today K55.9 - Vascular disorder of intestine, unspecified CT angio abdomen pelvis 1 Week K55.9 - Vascular disorder of intestine, unspecified Coding Level of Care Code Est Pt Level 4 (42787) Diagnoses Mesenteric ischemia K55.9
== END 2023-10-22 10:38 | disposition home or self-care (01) ==
PROVIDERS: PCP Family Medicine; Visit Provider Surgery Vascular Surgery
DX: K55.9 Vascular disorder of intestine, unspecified (principal)
CPT/HCPCS: 99204

== ENCOUNTER → 2023-10-22 10:17 | Outpatient (BNVA) | payer MEDICARE, SELFPAY | PROVIDERS: PCP Family Medicine; Visit Provider Surgery Vascular Surgery | DX: K55.9 Vascular disorder of intestine, unspecified (principal) | CPT/HCPCS: 99202 ==

== ENCOUNTER 2023-11-26 09:18 | Outpatient (REF) | payer MEDICARE, SELFPAY ==
--- NOTE | ~2023-11-26 | CT_ITS ---
EXAMINATION: CT ABDOMEN AND PELVIS WITHOUT CONTRAST CLINICAL INFORMATION: Vascular disorder COMPARISON: Ultrasound SMA from 09/09/2023 TECHNIQUE: Multidetector volumetric imaging was performed from the superior aspect of the liver through the pubic symphysis. Sagittal and coronal reformatted images were obtained on the technologist's workstation. This CT examination was performed using dose optimization techniques as appropriate, variously including the following: *Automated exposure control *Adjustment of mA and/or kV according to patient size (this includes techniques or standardized protocols for targeted exams where dose is matched to indication/reason for exam; i.e. extremities or head) *Use of iterative reconstruction technique DLP: 459 mGy-cm FINDINGS: LUNG BASES: Emphysematous changes. Bibasilar atelectasis. 2 mm nodule in the posterior lateral aspect right lower lobe (series 4, image 32). No pneumothorax. No large pleural effusion. LIVER, GALLBLADDER, AND BILIARY TREE: The liver is normal in size, shape, and attenuation. Hypodense focus right hepatic lobe measuring 6 mm too small to characterize though statistically representing a cyst. No focal hepatic lesion or biliary ductal dilatation is present. The gallbladder is unremarkable with no evidence of radiopaque gallstones, gallbladder wall thickening, or obvious pericholecystic inflammatory changes. PANCREAS: Unremarkable. SPLEEN: Unremarkable. ADRENAL GLANDS: Unremarkable. KIDNEYS AND URETERS AND BLADDER: Mild left-sided hydroureteronephrosis with periureteral and perinephric stranding secondary to a 7 mm calculus in the left distal ureter. No right-sided nephrolithiasis or hydronephrosis. BLADDER: Unremarkable. GASTROINTESTINAL TRACT: Small hiatal hernia. Colonic diverticulosis without acute diverticulitis. The small and large bowel are unremarkable. The appendix is not definitively visualized. ABDOMINAL WALL: Small fat filled umbilical hernia. LYMPH NODES: No enlarged lymph nodes per size criteria. VASCULAR: Abdominal aorta is nonaneurysmal. Prominent atherosclerotic calcifications of the abdominal aorta and its branches. Of note evaluation for SMA stenosis is limited secondary to lack of intravenous contrast. PELVIC VISCERA: Anteverted slightly retroflexed uterus with multiple calcifications within the fundus potentially representing calcified uterine fibroids. OSSEOUS STRUCTURES: Osteopenia. Multilevel degenerative changes of the thoracolumbar and lumbosacral spine. CT/CT abdomen pelvis wo IV con IMPRESSION: 1. Mild left-sided hydroureteronephrosis with periureteral and perinephric stranding secondary to a 7 mm calculus in the left distal ureter. 2. 2 mm nodule in the posterior lateral aspect right lower lobe. 3. Hypodense focus right hepatic lobe measuring 6 mm too small to characterize though statistically representing a cyst. 4. Small hiatal hernia. 5. Colonic diverticulosis without acute diverticulitis. 6. Anteverted slightly retroflexed uterus with multiple calcifications within the fundus potentially representing calcified uterine fibroids. 7. Osteopenia. This critical result was discussed with Lilly Suazo MA and Dr. Regan by telephone on 11/30/2023 12:32 PM and it was ascertained that the content and urgency of the report was understood at the time of direct communication.
== END 2023-11-26 09:19 | disposition home or self-care (01) ==
LOC: HO.CT 09:18
PROVIDERS: PCP Family Medicine; Visit Provider Surgery Vascular Surgery
DX: K55.9 Vascular disorder of intestine, unspecified (principal)
CPT/HCPCS: 74176

== ENCOUNTER 2023-12-28 12:09 | Outpatient (REF) | payer MEDICARE, SELFPAY ==
[2023-12-28 12:20] LABS: MANUAL DIFF FLAG NO
[2023-12-28 12:29] LABS: Basophils Percent Auto 0.4 % (0-2); Eosinophils Absolute Auto 0.1 X10*3/uL (0.0-0.4); Hematocrit 35.2 % (37.0-47.0); Hemoglobin 11.2 g/dl (12.0-16.0); Imm Gran Abs Auto 0.01 X10*3/uL (0.00-0.03); Imm Gran Pct Auto 0.2 % (0.0-0.4); Lymphocytes Percent Auto 20.2 % (20-40); Mean Corpuscular HGB Conc 31.8 g/dl (31.0-35.0); Mean Corpuscular Hemoglobin 28.6 pg (27.0-33.0); Mean Corpuscular Volume 89.8 fL (80.0-98.0); Mean Platelet Volume 9.8 fL (9.4-12.3); Monocytes Absolute Auto 0.5 X10*3/uL (0.1-1.2); Monocytes Percent Auto 9.9 % (2-11); Neutrophils Absolute Auto 3.4 x10*3/uL (2.0-8.3); Neutrophils Percent Auto 68.3 % (45-73); Platelet Count 181 X10*3/uL (160-400); Red Blood Count 3.92 X10*6/uL (4.20-5.50); Red Cell Distribution Width 12.6 % (11.0-16.0); White Blood Count 4.9 X10*3/uL (4.8-10.8)
[2023-12-28 13:28] LABS: Alanine Aminotransferase 10 U/L (0-31); Albumin Level 4.1 g/dL (3.5-5.0); Alkaline Phosphatase 50 U/L (39-117); Anion Gap 12 (12-20); Aspartate Amino Transferase 11 U/L (5-31); Bilirubin Total 0.3 mg/dL (0.0-1.0); Blood Urea Nitrogen 35 mg/dL (9-16); Calcium 9.6 mg/dL (8.4-10.2); Carbon Dioxide 25 mmol/L (22-29); Chloride 109 mmol/L (96-108); Cholesterol 153 mg/dL (<200); Estimated Glomerular Filt Rate 26; Glucose Random 116 mg/dL (60-115); Sodium 141 mmol/L (135-145)
[2023-12-28 13:43] LABS: Free T4 (Free Thyroxine) 0.87 ng/dL (0.71-1.85)
== END 2023-12-28 12:10 | disposition home or self-care (01) ==
LOC: HO.LAB 12:09
PROVIDERS: PCP Family Medicine; Visit Provider Family Medicine
DX: R63.4 Abnormal weight loss (principal); I73.9 Peripheral vascular disease, unspecified; I25.10 Atherosclerotic heart disease of native coronary artery without angina pectoris
CPT/HCPCS: 36415; 80053; 82465; 84439; 85025

== ENCOUNTER 2023-12-29 11:10 | Outpatient (AMB) | payer MEDICARE, SELFPAY ==
[2023-12-29 11:20] VITALS: BP 120/72; PULSE 64; BMI 25.2
--- NOTE | 2023-12-29 11:20 | A.OFFVIS_ITS ---
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 She continues to have intermittent episodes of high blood pressures. She has no symptoms related to it. No significant lightheadedness or low blood pressure issues. Denies any heart failure symptoms. Takes all her medications regularly. Her kidney functions are stable. Denies any heart failure symptoms. Her total cholesterol is improved with PCSK9 inhibitor therapy although do not have the LDL cholesterol drawn. Denies any palpitations, lightheadedness, syncope. No bleeding issues or neurologic events. [facility] Medical History Exertional angina Hyperlipidemia HTN (hypertension) PVD (peripheral vascular disease) Diabetes mellitus CAD (coronary artery disease) Surgical History Stented coronary artery Social History Household Members: Children Housing: House Alcohol intake: never Patient Tobacco Use Status: Former Tobacco user Review of Systems Const Denies chills, Denies fatigue, Denies fever(s), Denies frequent falls, Denies weakness, Denies weight gain and Denies weight loss ENT Denies dizziness Card Denies chest pain, Denies leg edema, Denies lightheadedness, Denies palpitations, Denies dyspnea, Denies dyspnea on exertion, Denies orthopnea and Denies other (loss of consciousness) Resp Denies cough, Denies dyspnea and Denies dyspnea on exertion GI Denies hematochezia and Denies change in stool character Musc Denies abnormal gait, Denies muscle weakness, Denies numbness, Denies radiating pain into limb and Denies tingling Neuro Denies abnormal gait, Denies dizziness, Denies frequent falls, Denies numbness, Denies tingling and Denies weakness Endo Denies fatigue and Denies palpitations Physical Exam Vital Signs: Last Vital Signs Pulse 64 12/29/23 11:20 BP 120/72 12/29/23 11:20 BMI result Body Mass Index 25.2 Const General: cooperative, healthy appearing, comfortable and no acute distress Orientation/consciousness: patient oriented x3 Neck Neck: Yes normal visual inspection and Yes no JVD Resp Effort & Inspection: normal respiratory effort Auscultation: clear to auscultation bilaterally, no crackles, no rales, no rhonchi and no wheezes Cardio Jugular venous distension: no JVD Rate: regular rate Rhythm: regular rhythm Heart sounds: S1 normal heart sound present, S2 normal heart sound present, no gallops, no murmurs and no rubs Bruits: carotid bruit bilaterally GI Inspection: Yes normal to inspection Neuro General: patient oriented x3 Extrem General: Yes normal to inspection Psych Appearance: grossly normal Mental Status: mental status grossly normal Speech and movement: Normal speech and movement present Assessment & Plan Assessment & Plan (1) CAD (coronary artery disease): Code(s): I25.10 - Atherosclerotic heart disease of [place] coronary artery without angina pectoris Plan: Diffuse and significant vascular disease with CAD with LAD stent with normalized LV systolic function. No anginal symptoms at this point time. Continue aggressive risk factor modification. Continue dual antiplatelet therapy till July of 2024. Continue PCSK9 inhibitor therapy. She is completed her phase 2 cardiac rehabilitation. Encouraged to continue to participate in physical activity as tolerated. Follow-up lipid panel in 3 months time. Advised to call me with any new symptoms. Continue to follow with vascular surgery. (2) HTN (hypertension): Code(s): I10 - Essential (primary) hypertension Plan: Hypertension which remains labile. She has some elevated blood pressure up to 168. Will slowly increase amlodipine to 2.5 mg twice a day. Advised to monitor blood pressure at home and maintain a log. Advised to call me if her blood pressure run significantly low or persist to be labile with majority of her readings above 150 systolic. She understands agrees. Continue follow renal function. Advised to maintain adequate hydration. Avoidance of salt loading was discussed. Orthostatic precautions were discussed. Will follow up in the clinic in 6 months time, sooner p.r.n.. Coding Level of Care Code Est Pt Level 4 (78694) Diagnoses CAD (coronary artery disease) I25.10 HTN (hypertension) I10
== END 2023-12-29 11:50 | disposition home or self-care (01) ==
PROVIDERS: PCP Family Medicine; Visit Provider Internal Medicine Cardiovascular Disease
DX: I25.10 Atherosclerotic heart disease of native coronary artery without angina pectoris (principal); I10 Essential (primary) hypertension
CPT/HCPCS: 99214

== ENCOUNTER → 2023-12-29 11:10 | Outpatient (BNVA) | payer MEDICARE, SELFPAY | PROVIDERS: PCP Family Medicine; Visit Provider Internal Medicine Cardiovascular Disease | DX: I25.10 Atherosclerotic heart disease of native coronary artery without angina pectoris (principal); I10 Essential (primary) hypertension | CPT/HCPCS: 99212 ==

== ENCOUNTER 2024-01-19 10:56 | Outpatient (AMB) | payer MEDICARE, SELFPAY ==
[2024-01-19 11:02] VITALS: BMI 25.1
--- NOTE | 2024-01-19 11:02 | MHC.OFFVIS ---
Intake Vital Signs 01/19/24 11:02 Height 5 ft 7 in Weight 160 lb BMI 25.1 Intake Visit Reasons: fol up CTA Abd/pelvis 11/26/23 mesentaric ischemia Intake Note: follow up CTA Abd/pelvis 11/26/23 for question of mesentaric artery stenosis. Pt states no abdominal issues. Accompanied by: Self / Same As Patient Allergies metformin Allergy (Unknown, Verified 01/19/24 11:11) gi lisinopril Adverse Reaction (Unknown, Verified 01/19/24 11:11) cough Statins Support Allergy (Unknown, Uncoded 01/19/24 11:11) mx HPI fol up CTA Abd/pelvis 11/26/23 mesentaric ischemia HPI Details Very pleasant 83-year-old female presents for follow-up with this CT scan. There was concern of mesenteric ischemia. She has since that time improved. She is currently tolerating a p.o. diet with no difficulty. She is able to tolerate pizza and pasta with no significant difficulty. Of note she quit smoking in 2000 and she has been a diabetic for nearly 15 years. She now presents to us for follow-up. [facility] Medical History Exertional angina Hyperlipidemia HTN (hypertension) PVD (peripheral vascular disease) Diabetes mellitus CAD (coronary artery disease) Surgical History Stented coronary artery Social History Household Members: Children Housing: House Alcohol intake: never Patient Tobacco Use Status: Former Tobacco user Review of Systems Const All systems reviewed & are unremarkable except as noted in HPI and below Reports no additional complaints ENT Reports Normal hearing present Card Denies chest pain, Denies chest pain at rest, Denies chest pain with activity and Denies pedal edema Resp Denies cough GI Denies abdominal pain Musc Denies abnormal gait, Denies muscle cramps and Denies radiating pain into limb Skin/Breast Denies skin ulcer and Denies wounds Neuro Reports Normal hearing present and Denies abnormal gait Psych Reports no additional complaints Physical Exam Vital Signs: BMI result Body Mass Index 25.1 Const General: cooperative, healthy appearing and comfortable Orientation/consciousness: oriented to person, oriented to place and oriented to time HEENT Head: Yes normal to inspection Neck Neck: Yes normal visual inspection Carotids: no bruits Chest Chest palpation & inspection: normal inspection of the chest Resp Effort & Inspection: normal respiratory effort and able to speak in complete sentences Auscultation: clear to auscultation bilaterally, no crackles, no rales, no rhonchi and no wheezes Cardio Rate: regular rate Rhythm: regular rhythm Heart sounds: S1 normal heart sound present and S2 normal heart sound present Bruits: no carotid bruits Peripheral pulses: Peripheral pulses 2+ throughout GI Inspection: Yes normal to inspection Skin Wounds: no wounds Hair: normal Neuro General: oriented to person, oriented to place and oriented to time Cranial nerves: Yes CN's II-XII intact bilaterally and Yes Normal hearing present Cognition (Neuro): normal cognition Motor exam (neuro): 5/5 motor strength present throughout Extrem Other: venous exam: No significant superficial varicosities or spider telangiectasias, minimal edema General: No clubbing, No cyanosis and No edema Psych Appearance: grossly normal Mental Status: mental status grossly normal Speech and movement: Normal speech and movement present Assessment & Plan Assessment & Plan (1) Mesenteric ischemia: Code(s): K55.9 - Vascular disorder of intestine, unspecified Plan: I did review her CT scan although noncontrast it does demonstrate no significant disease throughout the mesenteric vessels. There is calcification throughout her aorta. At the current time she is clinically asymptomatic. Would continue to observe and manage this conservatively. Should symptoms recur would be happy to see her back. (2) PVD (peripheral vascular disease): Code(s): I73.9 - Peripheral vascular disease, unspecified Plan: She does report that she has difficulty ambulating more than a block. She had been seen by [facility] for peripheral vascular disease in the past by Dr. Ma. I have taken the liberty of ordering noninvasive arterial testing she will follow up with us after testing. Thank you for allowing us to assist in her care. Orders: Orders US arterial duplex LE BI 1 Week I73.9 - Peripheral vascular disease, unspecified Coding Level of Care Code Est Pt Level 4 (53739) Diagnoses Mesenteric ischemia K55.9 PVD (peripheral vascular disease) I73.9
== END 2024-01-19 11:38 | disposition home or self-care (01) ==
PROVIDERS: PCP Family Medicine; Visit Provider Surgery Vascular Surgery
DX: K55.9 Vascular disorder of intestine, unspecified (principal); I73.9 Peripheral vascular disease, unspecified
CPT/HCPCS: 99214

== ENCOUNTER → 2024-01-19 10:56 | Outpatient (BNVA) | payer MEDICARE, SELFPAY | PROVIDERS: PCP Family Medicine; Visit Provider Surgery Vascular Surgery | DX: K55.9 Vascular disorder of intestine, unspecified (principal); I73.9 Peripheral vascular disease, unspecified | CPT/HCPCS: 99212 ==

== ENCOUNTER 2024-02-01 13:20 | Outpatient (REF) | payer MEDICARE, SELFPAY ==
--- NOTE | ~2024-02-01 | US_ITS ---
EXAMINATION: US RETROPERITONEAL LIMITED (AORTA) US Arterial Duplex Bi W/ Tin CLINICAL INFORMATION: PVD. COMPARISON: Bilateral lower extremity arterial duplex 05/19/2019 TECHNIQUE: Park-scale, color Doppler and spectral Doppler evaluation of the abdominal aorta. Ankle pulse volume recordings, ankle pressure measurements and ankle brachial indices were obtained of the lower extremity arterial system bilaterally in addition to duplex Doppler techniques with wave form analysis and measurement of velocities in the common femoral, profunda femoral, superficial femoral, popliteal, tibial and peroneal arteries. The study was performed only at rest. FINDINGS: Atheromatous plaque is present. The measurements of the aorta in maximum AP and transverse dimensions respectively are as follows: Proximal: 2.7 cm, 79 cm/sec Mid: 1.9 cm, 78 cm/sec. Distal: 1.8 cm, 115 cm/sec. The measurements of the common and external iliac arteries peak systolic velocities are as follows: Right Common Iliac Artery: 302 cm/sec External iliac artery: 133 cm/sec Left Common Iliac Artery: 340 cm/sec The left external iliac artery: 166 cm/sec RIGHT LE. THE RIGHT ANKLE-BRACHIAL INDEX IS: 0.47 noncompressibility/calcification. 2. SEGMENTAL PRESSURES (mmHg): Ankle: PT 76, DP 10 3. PVR WAVEFORMS: Ankle: Abnormal 4. DIRECT DUPLEX: Common femoral artery: 144 cm/s, biphasic Profunda femoris artery: 132 cm/s, Multiphasic Superficial femoral artery (proximal): 103 cm/s, monophasic Superficial femoral artery (mid): 73 cm/s, monophasic. There is a segment of occlusion with reconstitution by collaterals. Superficial femoral artery (distal): 44 cm/s, monophasic Proximal Popliteal artery: 128 cm/s, biphasic Mid posterior tibial artery: 43 cm/s, monophasic Peroneal artery: 20 cm/s, monophasic Anterior tibial artery: 104 cm/sec, monophasic Dorsalis pedis artery: 28 cm per sec, monophasic LEFT LE. THE LEFT ANKLE-BRACHIAL INDEX IS: 0.49 (higher of the DP/PT) 2. SEGMENTAL PRESSURES: Ankle: PT 77, DP 79 3. PVR WAVEFORMS: Ankle: Abnormal 4. DIRECT DUPLEX: Common femoral artery: 212 cm/s, biphasic Profunda femoris artery: 354 cm/s, monophasic Superficial femoral artery (proximal): 173 cm/s, monophasic Superficial femoral artery (mid): Occluded Superficial femoral artery (distal): Occluded Proximal Popliteal artery: 92 cm/s, monophasic Mid posterior tibial artery: 39 cm/s, monophasic Peroneal artery: 32 cm/s, monophasic Dorsalis pedis artery: 13 cm/sec, monophasic US/US arterial duplex BI w/ TIN IMPRESSION: No evidence of abdominal aortic aneurysm. Based on published guidelines in J Am Julee Radiol 2013; 10(10):789-794 and J Vasc Surg. 2018; 67:2-77, the recommendation for an abdominal aorta with diameter 2.6-2.9 cm is follow-up every 5 years if the aorta that meets the criteria for AAA (>1.5 x proximal normal segment; no f/u if < 1.5 x proximal normal segment; no f/u for aorta < 2.6 cm). Right lower extremity: Severe peripheral arterial disease by TIN. Elevated velocity in the right common iliac artery is suggestive of inflow disease. There is a segment of occlusion in the mid right superficial femoral artery with reconstitution by collaterals. There is monophasic flow from the superficial femoral artery and distally. Left lower extremity: Severe peripheral arterial disease by TIN. Elevated velocity in the left common iliac artery suggestive of inflow disease. The left superficial femoral artery is occluded with reconstitution of the distal popliteal artery. Monophasic flow throughout the lower extremity.
== END 2024-02-01 13:21 | disposition home or self-care (01) ==
LOC: HO.US 13:20
PROVIDERS: PCP Family Medicine; Visit Provider Surgery Vascular Surgery
DX: I73.9 Peripheral vascular disease, unspecified (principal)
CPT/HCPCS: 76706; 93922; 93925

== ENCOUNTER 2024-02-16 11:43 | Outpatient (AMB) | payer MEDICARE, SELFPAY ==
--- NOTE | 2024-02-16 11:44 | A.OFFVIS_ITS ---
Vital Signs 02/16/24 11:45 Height 5 ft 7 in Weight 160 lb BMI 25.1 Intake Visit Reasons: ART US f/u s/p 01/31 Intake Note: follow up ARterial US 02/01/24 for bilateral LE pain and Hx of procedures w/ @ [facility]. Was seen last month for mesentaric artery. Pt states both legs feel the same. Pt states that whenever she walks any distance her legs hurts and cramp. Doesn't happen too often around the house expect when going up or down the stairs, she gets cramping. Accompanied by: Self / Same As Patient Allergies metformin Allergy (Unknown, Verified 02/16/24 11:49) gi barium sulfate [From Eneset 2] Adverse Reaction (Mild, Verified 02/16/24 11:52) Stomach Upset carvedilol Adverse Reaction (Mild, Verified 02/16/24 11:52) Stomach Upset hydroxyzine Adverse Reaction (Mild, Verified 02/16/24 11:52) Stomach Upset metoprolol Adverse Reaction (Mild, Verified 02/16/24 11:52) Cough lisinopril Adverse Reaction (Unknown, Verified 02/16/24 11:49) cough Statins Support Allergy (Unknown, Uncoded 02/16/24 11:49) mx HPI HPI ART US f/u s/p 01/31: Details: Very pleasant 83-year-old female presents for follow-up regarding her lower extremities. She would undergone initial workup for mesenteric ischemia. At that time she was noted to have atherosclerotic aorta and iliacs. She subsequently underwent lower extremity arterial ultrasound. Upon discussion with her she can barely walk a block. This has been a persistent issue for her. She now presents to us for follow-up. [facility] Medical History Exertional angina Hyperlipidemia HTN (hypertension) PVD (peripheral vascular disease) Diabetes mellitus CAD (coronary artery disease) Surgical History Stented coronary artery Social History Household Members: Children Housing: House Alcohol intake: never Patient Tobacco Use Status: Former Tobacco user Review of Systems Const All systems reviewed & are unremarkable except as noted in HPI and below Reports no additional complaints ENT Reports Normal hearing present Card Denies chest pain, Denies chest pain at rest, Denies chest pain with activity and Denies pedal edema Resp Denies cough GI Denies abdominal pain Musc Denies abnormal gait, Denies muscle cramps and Denies radiating pain into limb Skin/Breast Denies skin ulcer and Denies wounds Neuro Reports Normal hearing present and Denies abnormal gait Psych Reports no additional complaints Physical Exam Vital Signs: BMI result Body Mass Index 25.1 Const General: cooperative, healthy appearing and comfortable Orientation/consciousness: oriented to person, oriented to place and oriented to time HEENT Head: Yes normal to inspection Neck Neck: Yes normal visual inspection Carotids: no bruits Chest Chest palpation & inspection: normal inspection of the chest Resp Effort & Inspection: normal respiratory effort and able to speak in complete sentences Auscultation: clear to auscultation bilaterally, no crackles, no rales, no rhonchi and no wheezes Cardio Other: Bilateral DP signals Rate: regular rate Rhythm: regular rhythm Heart sounds: S1 normal heart sound present and S2 normal heart sound present Bruits: no carotid bruits Peripheral pulses: Peripheral pulses 2+ throughout GI Inspection: Yes normal to inspection Skin Wounds: no wounds Hair: normal Neuro General: oriented to person, oriented to place and oriented to time Cranial nerves: Yes CN's II-XII intact bilaterally and Yes Normal hearing present Cognition (Neuro): normal cognition Motor exam (neuro): 5/5 motor strength present throughout Extrem Other: venous exam: No significant superficial varicosities or spider telangiectasias, minimal edema General: No clubbing, No cyanosis and No edema Psych Appearance: grossly normal Mental Status: mental status grossly normal Speech and movement: Normal speech and movement present Results Reviewed Results Reviewed: Noninvasive arterial testing dated 02/01/2024 demonstrates TIN on the right of 0.47 and on the left of 0.47 with concerns bilateral SFA disease and inflow disease. Written report and images were reviewed Assessment & Plan Assessment & Plan (1) PVD (peripheral vascular disease): Code(s): I73.9 - Peripheral vascular disease, unspecified Category: Medical Plan: Patient notes leg pain when walking distances. I have discussed the pathophysiology of peripheral vascular disease with the patient. I have also discussed risk factor modification. I have reviewed the patient's arterial testing which reveals left inflow and SFA disease. the patient would benefit from a left leg endovascular peripheral angiogram with possible angioplasty, stent, and/or atherectomy. This has been discussed in detail with the patient along with risks, benefits, and complications. This includes but is not limited to bleeding, infection, heart attack, need for emergent surgical repair, limb ischemia, blood vessel damage, bleeding, puncture, kidney injury, bruising, allergic reaction, and skin reaction. The patient demonstrates a clear understanding. We will schedule for the next appropriate time. Thank you for allowing us to assist in this patient's care. Coding Level of Care Code Est Pt Level 4 (94706) Diagnoses PVD (peripheral vascular disease) I73.9
[2024-02-16 11:45] VITALS: BMI 25.1
== END 2024-02-16 12:10 | disposition home or self-care (01) ==
PROVIDERS: PCP Family Medicine; Visit Provider Surgery Vascular Surgery
DX: I73.9 Peripheral vascular disease, unspecified (principal)
CPT/HCPCS: 99214

== ENCOUNTER → 2024-02-16 11:43 | Outpatient (BNVA) | payer MEDICARE, SELFPAY | PROVIDERS: PCP Family Medicine; Visit Provider Surgery Vascular Surgery | DX: I73.9 Peripheral vascular disease, unspecified (principal) | CPT/HCPCS: 99212 ==

== ENCOUNTER 2024-03-02 05:48 | Day surgery (SDC) | payer MEDICARE, SELFPAY ==
[2024-03-02] VITALS (11 sets, daily range): BP systolic 126–168; BP diastolic 51–75; PULSE 63–74; RESP 15–18; TEMP 36.6–36.8; O2SAT 93–99; BMI 25.1
[2024-03-02 06:43] LABS: Glucose, Whole Blood 87 mg/dL (60-115)
[2024-03-02 06:53] LABS: MANUAL DIFF FLAG NO
[2024-03-02 06:54] LABS: Basophils Percent Auto 0.5 % (0-2); Eosinophils Absolute Auto 0.1 X10*3/uL (0.0-0.4); Hemoglobin 11.6 g/dl (12.0-16.0); Imm Gran Abs Auto 0.02 X10*3/uL (0.00-0.03); Imm Gran Pct Auto 0.4 % (0.0-0.4); Lymphocytes Absolute Auto 1.3 X10*3/uL (1.2-4.9); Lymphocytes Percent Auto 23.9 % (20-40); Mean Corpuscular HGB Conc 32.2 g/dl (31.0-35.0); Mean Corpuscular Hemoglobin 28.7 pg (27.0-33.0); Mean Corpuscular Volume 89.1 fL (80.0-98.0); Monocytes Absolute Auto 0.5 X10*3/uL (0.1-1.2); Monocytes Percent Auto 9.8 % (2-11); Neutrophils Absolute Auto 3.5 x10*3/uL (2.0-8.3); Neutrophils Percent Auto 63.4 % (45-73); Platelet Count 183 X10*3/uL (160-400); Red Blood Count 4.04 X10*6/uL (4.20-5.50); White Blood Count 5.5 X10*3/uL (4.8-10.8)
[2024-03-02] MEDS: 0.9 % Sodium Chloride 1,000 ML 100 ML IVCONT (06:56)
[2024-03-02 07:09] LABS: Blood Urea Nitrogen 35 mg/dL (9-16); Creatinine Clr Calc Pharmacy 21.1; Estimated Glomerular Filt Rate 24
--- NOTE | 2024-03-02 09:46 | W.PM.OPN ---
Operative Note Operative Note Date of Service: 03/02/24 Narrative: Angiogram report from [facility] Preoperative diagnosis: Atherosclerosis of left lower extremity with activity limiting claudication Postoperative diagnosis: Same Procedure: 1. Ultrasound-guided right common femoral access 2. Ultrasound guided left common femoral access 3. Aortogram with left lower extremity runoff 4. Right common iliac 5. Left common iliac stent Surgeon:Reji Regan M.D., FACS, RPVI Tufter:None Anesthesia: Local with moderate conscious sedation. Total intraservice moderate sedation time was 60 minutes. I monitored the patient's level of consciousness and physiologic status continuously throughout the procedure. Specimens:none Drains:none Estimated blood loss: Less than 10 ml Implant: [place] VBX 8 x 39; [place] VBX 8 by 29 Indications: Very pleasant 83-year-old female with a remote history of smoking presents for activity limiting claudication. She reports that the left is more painful than the right. She now presents for endovascular intervention The patient has signed the informed consent after reviewing risks, complications, benefits, and alternatives previously discussed with the patient. The patient was given the opportunity to ask any additional questions or voice any concerns. All questions were answered to the patient's satisfaction. Procedure in detail: Patient was brought to the angiography suite prior to which a time-out was called for patient identification and site verification. Bilateral groins were prepped and draped in the standard surgical fashion. Under ultrasound guidance right common femoral was punctured with micro puncture needle and wire. Subsequently a precision 5 [place] sheath was then placed. Bentson wire was advanced to the level of the aorta. 5 [place] Flush catheter was brought up and parked at the level of the renal arteries. Aortogram was then undertaken. Catheter was brought down to the level of the iliac bifurcation. Iliacs were subsequently imaged. Catheter was then brought in up and over to the left side SFA. The left SFA was occluded and the catheter had to be parked in the profundus femorals. Runoff study was then undertaken. There was a total occlusion of the left SFA. We were unable to intervene on that side. At this time we turned our attention to the iliac bifurcation. There is high-grade stenosis at the right common iliac and left common iliac. We subsequently punctured the left common femoral artery under ultrasound guidance in a similar fashion. Five [place] sheath was then placed. At this time we then administered 5000 units of systemic heparin. After 5 minutes of circulation time we then exchanged out for bilateral 7 [place] sheaths. We did a kissing balloon stents. We placed a [place] VBX 8 by 39 on the right side and on the left side it was a [place] VBX 8 x 29. The were insufflated simultaneously in both were at the bifurcation. Completion result was excellent. Completion angiogram was then performed. We then placed bilateral CELT closure devices 7 [place]. Adequate hemostasis was achieved. Patient tolerated the procedure well. Returned to recovery with stable vitals. Interpretation of films: 1. Ultrasound demonstrates appropriate femoral puncture. This was bilateral femoral punctures Image of which was saved. 2. Aortogram demonstrates appropriate caliber aorta. Significant disease was noted at the bifurcation. Causing a distal ring. Appropriate take-off of the renals. There was no significant stenosis of the renals. Close up the use of the renal arteries were undertaken. 3. Iliac images demonstrate high-grade stenosis at bilateral common iliac 4. Left Leg Common femoral artery: Mild disease Profundus Femoris: No significant disease Superficial femoral artery: Total occlusion Popliteal artery (p1,p2,p3): No significant disease Anterior tibial artery: No significant disease Peroneal artery: No significant disease Posterior tibial artery: No significant disease Dorsalis pedis/plantar arch: Unable to image Conclusion: 1. Successful bilateral iliac stents. Should there be persistent left lower extremity pain will require left fem-pop bypass 2. Anticoagulation status: Continue aspirin and Plavix for 6 months This note is constructed using voice recognition software. While every effort has been made to ensure accuracy, ship propeller finisher errors may have been included. Thank you for allowing me to participate in the care of your patient. Yours sincerely, Reji Regan MD, FACS, R.P.V.I.
== END 2024-03-02 13:20 | disposition home health service (06) ==
PROVIDERS: PCP Family Medicine; Visit Provider Surgery Vascular Surgery
PROC: (CPT 37221; principal; 2024-03-02 07:30)
DX: E11.51 Type 2 diabetes mellitus with diabetic peripheral angiopathy without gangrene (principal); I70.212 Atherosclerosis of native arteries of extremities with intermittent claudication, left leg; Z79.85 Long-term (current) use of injectable non-insulin antidiabetic drugs; I10 Essential (primary) hypertension; E78.5 Hyperlipidemia, unspecified; I25.10 Atherosclerotic heart disease of native coronary artery without angina pectoris; Z95.5 Presence of coronary angioplasty implant and graft; I25.5 Ischemic cardiomyopathy; Z79.84 Long term (current) use of oral hypoglycemic drugs; Z79.82 Long term (current) use of aspirin; Z79.02 Long term (current) use of antithrombotics/antiplatelets; Z79.899 Other long term (current) drug therapy; Z87.891 Personal history of nicotine dependence; Z88.8 Allergy status to other drugs, medicaments and biological substances
CPT/HCPCS: 37221; 36415; 75630; 76937; 82565; 82947; 84520; 85025; 99152; 99153; A4364; C1725; C1760; C1769; C1874; C1887; C1894; J1644; J2250; J2310; J2405; J3010; Q9967

== ENCOUNTER → 2024-03-02 05:48 | Outpatient (BNV) | payer MEDICARE, SELFPAY | PROVIDERS: PCP Family Medicine; Visit Provider Surgery Vascular Surgery | DX: I70.212 Atherosclerosis of native arteries of extremities with intermittent claudication, left leg (principal) | CPT/HCPCS: 36247; 37221; 75625; 75716 ==

== ENCOUNTER 2024-03-15 15:20 | Outpatient (AMB) | payer MEDICARE, SELFPAY ==
--- NOTE | 2024-03-15 15:47 | HO.NEPHOV_ITS ---
Vital Signs 03/15/24 15:51 Height 5 ft 7 in Weight 162 lb 4 oz BMI 25.4 BP 130/60 Blood Pressure Location Lt brachial Position Sitting Pulse 81 Pulse Source Pulse Oximeter Pulse Oximetry (%) 92 Oxygen Delivery Method Room Air Intake Visit Reasons: CKD/ Conf Supervisory Training Specialist Required: No Accompanied by: Self / Same As Patient Allergies metformin Allergy (Unknown, Verified 03/22/24 10:42) gi barium sulfate [From Eneset 2] Adverse Reaction (Mild, Verified 03/22/24 10:42) Stomach Upset carvedilol Adverse Reaction (Mild, Verified 03/22/24 10:42) Stomach Upset hydroxyzine Adverse Reaction (Mild, Verified 03/22/24 10:42) Stomach Upset metoprolol Adverse Reaction (Mild, Verified 03/22/24 10:42) Cough lisinopril Adverse Reaction (Unknown, Verified 03/22/24 10:42) cough Statins Support Allergy (Unknown, Uncoded 03/22/24 10:42) mx HPI Comments Details: I had the privilege of seeing of seeing Anna in consultation for CKD and hypertension. She is a 83year old with H/O PAD as well as CAD. She is hypertensive on medications. She denied any retinopathy or neuropathy, CVA, CHF, renal stones, new bone or back pain, hypercalcemia, edema, hematuria, sensori neural deafness, epistaxis, photosensitivity, recent infection, skin rashes. Her serum creatinine has gone up to 2.1. She has no new systemic symptoms. She feels well but concerned about her decline in GFR [facility] Medical History Exertional angina Hyperlipidemia HTN (hypertension) PVD (peripheral vascular disease) Diabetes mellitus CAD (coronary artery disease) Surgical History Hx of appendectomy Stented coronary artery Social History Household Members: Children Housing: House Alcohol intake: never Patient Tobacco Use Status: Former Tobacco user Review of Systems Const All systems reviewed & are unremarkable except as noted in HPI and below Physical Exam Vital Signs: Last Vital Signs Pulse 81 03/15/24 15:51 BP 130/60 03/15/24 15:51 Pulse Ox 92 03/15/24 15:51 Oxygen Delivery Method Room Air 03/15/24 15:51 BMI result Body Mass Index 25.4 Const General: comfortable and no acute distress Orientation/consciousness: patient oriented x3 HEENT Head: Yes normocephalic Mouth: Normal oral and palatal mucosa present Eyes EOM: EOMs intact bilaterally Neck Neck: Yes supple Resp Auscultation: clear to auscultation bilaterally Cardio Jugular venous distension: no JVD Rate: regular rate GI Palpation (GI): Soft to palpation Auscultation: normal bowel sounds General: Yes no CVA tenderness Back/Spine/Pelvis Back: no CVA tenderness Skin General skin exam: no rashes or lesions noted Neuro General: patient oriented x3 and moves all extremities Extrem General: Yes no pedal edema Results Reviewed Nephrology Results: Hgb 12.0 g/dl (12.0-16.0) 03/16/24 WBC 5.0 X10*3/uL (4.8-10.8) 03/16/24 Plt Count 251 X10*3/uL (160-400) 03/16/24 Sodium 141 mmol/L (135-145) 03/16/24 Potassium 4.2 mmol/L (3.3-5.1) 03/16/24 Chloride 108 mmol/L (96-108) 03/16/24 Carbon Dioxide 26 mmol/L (22-29) 03/16/24 BUN 41 mg/dL (9-16) H 03/22/24 Creatinine 2.10 mg/dL (0.5-1.4) H 03/22/24 Calcium 9.8 mg/dL (8.4-10.2) 03/16/24 Urine Protein Negative mg/dL (Neg-Trace) 03/16/24 Urine Creatinine 74.57 mg/dL 03/16/24 Protein/Creatinin Ratio TNP 03/16/24 Renal US 03/31/24 Assessment & Plan Assessment & Plan (1) PVD (peripheral vascular disease): Comment: 03/02/2024 - bilateral iliac stents Code(s): I73.9 - Peripheral vascular disease, unspecified Category: Medical (2) HTN (hypertension): Code(s): I10 - Essential (primary) hypertension Category: Medical Qualifiers: Hypertension type: renovascular hypertension Qualified Code(s): I15.0 - Renovascular hypertension (3) CKD stage 3b, GFR 30-44 ml/min: Code(s): N18.32 - Chronic kidney disease, stage 3b Category: Medical Plan Anna has progressive decline GFR likely due to renovascular disease. She has coronary artery disease as well as PAD. She is on aspirin and Plavix. There is no reason to suspect any cholesterol embolism. I have ordered extensive workup as as imaging studies. If she has critical narrowing of her renal artery she may need renal angiogram and stenting. Her blood pressure is currently at amlodipine. She maintains good hydration and avoids nonsteroidal anti- inflammatories. I plan to do a 24 hour urine for creatinine clearance in the future. Answered all questions and follow-up given. Orders: Orders Phospholipase A2 Receptor Pnl 03/16/24 N18.32 - Chronic kidney disease, stage 3b, I73.9 - Peripheral vascular disease, unspecified, I10 - Essential (primary) hypertension Myeloperoxidase Antibody 03/16/24 N18.32 - Chronic kidney disease, stage 3b, I73.9 - Peripheral vascular disease, unspecified, I10 - Essential (primary) hypertension Anti DNA DS Antibody 03/16/24 N18.32 - Chronic kidney disease, stage 3b, I73.9 - Peripheral vascular disease, unspecified, I10 - Essential (primary) hypertension Electrolytes 03/16/24 N18.32 - Chronic kidney disease, stage 3b, I73.9 - Peripheral vascular disease, unspecified, I10 - Essential (primary) hypertension UA and rflx microscopic 03/16/24 N18.32 - Chronic kidney disease, stage 3b, I73.9 - Peripheral vascular disease, unspecified, I10 - Essential (primary) hypertension US renal BI 03/15/24 I73.9 - Peripheral vascular disease, unspecified, I10 - Essential (primary) hypertension, N18.32 - Chronic kidney disease, stage 3b Creatinine Clearance Urine 24U 03/22/24 N18.32 - Chronic kidney disease, stage 3b, I73.9 - Peripheral vascular disease, unspecified, I10 - Essential (primary) hypertension Immunofixation Pnl, Serum 03/16/24 N18.32 - Chronic kidney disease, stage 3b, I73.9 - Peripheral vascular disease, unspecified, I10 - Essential (primary) hypertension Complement C3 03/16/24 N18.32 - Chronic kidney disease, stage 3b, I73.9 - Peripheral vascular disease, unspecified, I10 - Essential (primary) hypertension Complement C4 03/16/24 N18.32 - Chronic kidney disease, stage 3b, I73.9 - Peripheral vascular disease, unspecified, I10 - Essential (primary) hypertension Anti Glomerular Basement Memb 03/16/24 N18.32 - Chronic kidney disease, stage 3b, I73.9 - Peripheral vascular disease, unspecified, I10 - Essential (primary) hypertension Proteinase 3 PR3 Antibodies 03/16/24 N18.32 - Chronic kidney disease, stage 3b, I73.9 - Peripheral vascular disease, unspecified, I10 - Essential (primary) hypertension Calcium 03/16/24 N18.32 - Chronic kidney disease, stage 3b, I73.9 - Peripheral vascular disease, unspecified, I10 - Essential (primary) hypertension Blood Urea Nitrogen 03/16/24 N18.32 - Chronic kidney disease, stage 3b, I73.9 - Peripheral vascular disease, unspecified, I10 - Essential (primary) hypertension Creatinine 03/16/24 N18.32 - Chronic kidney disease, stage 3b, I73.9 - Peripheral vascular disease, unspecified, I10 - Essential (primary) hypertension Complete Blood Count Auto Diff 03/16/24 N18.32 - Chronic kidney disease, stage 3b, I73.9 - Peripheral vascular disease, unspecified, I10 - Essential (primary) hypertension Protein Creatinine Ratio, Ur 03/16/24 N18.32 - Chronic kidney disease, stage 3b, I73.9 - Peripheral vascular disease, unspecified, I10 - Essential (primary) hypertension US renal doppler 03/15/24 N18.32 - Chronic kidney disease, stage 3b, I73.9 - Peripheral vascular disease, unspecified, I15.0 - Renovascular hypertension Coding Level of Care Code New Pt Level 4 (04394) Diagnoses PVD (peripheral vascular disease) I73.9 Renovascular hypertension I15.0 Hypertension type: renovascular hypertension CKD stage 3b, GFR 30-44 ml/min N18.32
[2024-03-15 15:51] VITALS: BP 130/60; PULSE 81; O2SAT 92; BMI 25.4
== END 2024-03-15 16:27 | disposition home or self-care (01) ==
PROVIDERS: PCP Family Medicine; Referring Provider Surgery Vascular Surgery; Visit Provider Internal Medicine Nephrology
DX: I73.9 Peripheral vascular disease, unspecified (principal); I15.0 Renovascular hypertension; N18.32 Chronic kidney disease, stage 3b
CPT/HCPCS: 99204

== ENCOUNTER → 2024-03-15 15:20 | Outpatient (BNVA) | payer MEDICARE, SELFPAY | PROVIDERS: PCP Family Medicine; Referring Provider Surgery Vascular Surgery; Visit Provider Internal Medicine Nephrology | DX: I15.0 Renovascular hypertension (principal); N18.32 Chronic kidney disease, stage 3b; I73.9 Peripheral vascular disease, unspecified; Z95.5 Presence of coronary angioplasty implant and graft | CPT/HCPCS: 99202 ==

== ENCOUNTER 2024-03-16 11:04 | Outpatient (REF) | payer MEDICARE, SELFPAY ==
[2024-03-16 18:28] LABS: Appearance Urine Clear; Color Urine Yellow; Glucose Urine UA >=1000 mg/dL (Negative); Leukocyte Esterase Urine Small (1+) (Negative); Nitrite Urine Positive (Negative); Specific Gravity - Urine 1.025 (1.005-1.025); UMIC TRIGGER UA YES; Urine Blood Negative (Negative); Urine Ketones Negative (Negative); Urine Protein Negative (Neg-Trace)
[2024-03-16 18:44] LABS: MANUAL DIFF FLAG NO
[2024-03-16 18:47] LABS: Basophils Percent Auto 0.8 % (0-2); Eosinophils Absolute Auto 0.1 X10*3/uL (0.0-0.4); Eosinophils Percent Auto 2.2 % (0-4); Hematocrit 37.1 % (37.0-47.0); Imm Gran Abs Auto 0.02 X10*3/uL (0.00-0.03); Imm Gran Pct Auto 0.4 % (0.0-0.4); Lymphocytes Percent Auto 20.1 % (20-40); Mean Corpuscular HGB Conc 32.3 g/dl (31.0-35.0); Mean Corpuscular Hemoglobin 29.3 pg (27.0-33.0); Mean Corpuscular Volume 90.5 fL (80.0-98.0); Mean Platelet Volume 10.4 fL (9.4-12.3); Monocytes Absolute Auto 0.4 X10*3/uL (0.1-1.2); Monocytes Percent Auto 8.8 % (2-11); Neutrophils Absolute Auto 3.4 x10*3/uL (2.0-8.3); Neutrophils Percent Auto 67.7 % (45-73); Platelet Count 251 X10*3/uL (160-400); Red Cell Distribution Width 12.9 % (11.0-16.0)
[2024-03-16 18:57] LABS: Bacteria Urine 4+ (None Seen); Hyaline Casts Urine 0-2 /LPF (0-2); RBC Urine 0-2 /HPF (0-2); Squamous Epithelial Cell Urine 0-2 /HPF (0-2); WBC Urine 21-50 /HPF (0-5)
[2024-03-16 19:09] LABS: Anion Gap 11 (12-20); Blood Urea Nitrogen 37 mg/dL (9-16); Calcium 9.8 mg/dL (8.4-10.2); Carbon Dioxide 26 mmol/L (22-29); Chloride 108 mmol/L (96-108); Estimated Glomerular Filt Rate 22; Potassium 4.2 mmol/L (3.3-5.1); Sodium 141 mmol/L (135-145)
[2024-03-16 19:16] LABS: Creatinine Urine 74.57 mg/dL; Total Protein Urine Random < 7 mg/dL (<12)
[2024-03-18 12:23] LABS: Complement C3 93 mg/dL
[2024-03-22 13:54] LABS: Anti DNA DS Antibody <1 IU/mL; Anti Glomerular Basement Memb <1.0 AI; Myeloperoxidase Antibody <1.0 AI; Proteinase 3 PR3 Antibodies <1.0 AI
[2024-03-23 12:44] LABS: IgA 152 mg/dL (70-320); IgG 1178 mg/dL (600-1540); IgM 80 mg/dL (50-300)
[2024-03-23 17:03] LABS: Phospholipase A2 IgG ELISA <4 RU/mL; Phospholipase A2 IgG IFA NEGATIVE (NEGATIVE)
== END 2024-03-16 11:05 | disposition home or self-care (01) ==
LOC: HO.HKASLDS 11:04
PROVIDERS: Visit Provider Internal Medicine Nephrology
DX: I10 Essential (primary) hypertension (principal); I73.9 Peripheral vascular disease, unspecified; N18.32 Chronic kidney disease, stage 3b
CPT/HCPCS: 36415; 80051; 81001; 82310; 82565; 82570; 82784; 83520; 84156; 84520; 85025; 86021; 86160; 86225; 86255; 86334

== ENCOUNTER 2024-03-22 08:27 | Outpatient (REF) | payer MEDICARE, SELFPAY ==
[2024-03-22 18:23] LABS: Blood Urea Nitrogen 41 mg/dL (9-16); Estimated Glomerular Filt Rate 23
== END 2024-03-22 08:28 | disposition home or self-care (01) ==
LOC: HO.HKASLDS 08:27
PROVIDERS: Visit Provider Surgery Vascular Surgery
DX: K55.9 Vascular disorder of intestine, unspecified (principal)
CPT/HCPCS: 36415; 82565; 84520

== ENCOUNTER 2024-03-22 08:31 | Outpatient (REF) | payer MEDICARE, SELFPAY ==
[2024-03-22 18:17] LABS: Creatinine, mg/dL 72.05
[2024-03-22 18:28] LABS: Cholesterol 233 mg/dL (<200); HDL Cholesterol 59 mg/dL (>40); LDL Cholesterol Calculated 155 mg/dL (<100); Triglycerides 96 mg/dL (<150)
[2024-03-22 22:49] LABS: Total Volume 24 Hour Urine 1350 mL
[2024-03-22 22:53] LABS: Creatinine Clearance 32.1 mL/min (85-125)
== END 2024-03-22 08:32 | disposition home or self-care (01) ==
LOC: HO.HKASLDS 08:31
PROVIDERS: Internal Medicine Nephrology; Visit Provider Internal Medicine Cardiovascular Disease
DX: I73.9 Peripheral vascular disease, unspecified (principal); Z95.820 Peripheral vascular angioplasty status with implants and grafts; I12.9 Hypertensive chronic kidney disease with stage 1 through stage 4 chronic kidney disease, or unspecified chronic kidney disease; N18.32 Chronic kidney disease, stage 3b; I25.10 Atherosclerotic heart disease of native coronary artery without angina pectoris
CPT/HCPCS: 36415; 80061; 82575; 99212

== ENCOUNTER 2024-03-22 10:33 | Outpatient (AMB) | payer MEDICARE, SELFPAY ==
--- NOTE | 2024-03-22 10:38 | MHC.OFFVIS ---
Vital Signs 03/22/24 10:39 Height 5 ft 7 in Weight 162 lb BMI 25.4 Intake Visit Reasons: 2 week left leg angio follow up Intake Note: 2 week follow up Left LE Angio 03/02/24, pt states no complaints or issues. Pt states she feels a little better in her legs, she states its difficult to tell. Accompanied by: Self / Same As Patient Allergies metformin Allergy (Unknown, Verified 03/22/24 10:42) gi barium sulfate [From Eneset 2] Adverse Reaction (Mild, Verified 03/22/24 10:42) Stomach Upset carvedilol Adverse Reaction (Mild, Verified 03/22/24 10:42) Stomach Upset hydroxyzine Adverse Reaction (Mild, Verified 03/22/24 10:42) Stomach Upset metoprolol Adverse Reaction (Mild, Verified 03/22/24 10:42) Cough lisinopril Adverse Reaction (Unknown, Verified 03/22/24 10:42) cough Statins Support Allergy (Unknown, Uncoded 03/22/24 10:42) mx HPI HPI 2 week left leg angio follow up: Details: Very pleasant 83-year-old female presents for follow-up status post endovascular intervention. In general she feels fairly well after her procedure. She reports that she is ambulating slightly better. She is able to bring out her trash without any discomfort. She also reports that her daughter notices her gait is better. In general still does have some discomfort. Now presents for routine postprocedure follow-up. REPLACED BY [facility] Medical History Exertional angina Hyperlipidemia HTN (hypertension) PVD (peripheral vascular disease) Diabetes mellitus CAD (coronary artery disease) Surgical History Hx of appendectomy Stented coronary artery Social History Household Members: Children Housing: House Alcohol intake: never Patient Tobacco Use Status: Former Tobacco user Review of Systems Const All systems reviewed & are unremarkable except as noted in HPI and below Reports no additional complaints ENT Reports Normal hearing present Card Denies chest pain, Denies chest pain at rest, Denies chest pain with activity and Denies pedal edema Resp Denies cough GI Denies abdominal pain Musc Denies abnormal gait, Denies muscle cramps and Denies radiating pain into limb Skin/Breast Denies skin ulcer and Denies wounds Neuro Reports Normal hearing present and Denies abnormal gait Psych Reports no additional complaints Physical Exam Vital Signs: BMI result Body Mass Index 25.4 Const General: cooperative, healthy appearing and comfortable Orientation/consciousness: oriented to person, oriented to place and oriented to time HEENT Head: Yes normal to inspection Neck Neck: Yes normal visual inspection Carotids: no bruits Chest Chest palpation & inspection: normal inspection of the chest Resp Effort & Inspection: normal respiratory effort and able to speak in complete sentences Auscultation: clear to auscultation bilaterally, no crackles, no rales, no rhonchi and no wheezes Cardio Other: Bilateral DP signals Rate: regular rate Rhythm: regular rhythm Heart sounds: S1 normal heart sound present and S2 normal heart sound present Bruits: no carotid bruits GI Inspection: Yes normal to inspection Skin Wounds: no wounds Hair: normal Neuro General: oriented to person, oriented to place and oriented to time Cranial nerves: Yes CN's II-XII intact bilaterally and Yes Normal hearing present Cognition (Neuro): normal cognition Motor exam (neuro): 5/5 motor strength present throughout Extrem Other: venous exam: No significant superficial varicosities or spider telangiectasias, minimal edema General: No clubbing, No cyanosis and No edema Psych Appearance: grossly normal Mental Status: mental status grossly normal Speech and movement: Normal speech and movement present Assessment & Plan Assessment & Plan (1) PVD (peripheral vascular disease): Comment: 03/02/2024 - bilateral iliac stents Code(s): I73.9 - Peripheral vascular disease, unspecified Category: Medical Plan: In short patient is stable status post endovascular intervention. I did review the pathophysiology of peripheral vascular disease with the patient. In addition we did discuss routine conservative measures including a healthy diet and the importance of exercise and ambulation. We did discuss risk factor modification. The patient will continue to to follow-up with surveillance follow-up in approximately 3 months. Thank you for allowing us to participate in this patient's care. If there are any questions or concerns please do not hesitate to contact us. Orders: Orders US arterial duplex LE BI 3 Months I73.9 - Peripheral vascular disease, unspecified Coding Level of Care Code Est Pt Level 4 (70322) Diagnoses PVD (peripheral vascular disease) I73.9
[2024-03-22 10:39] VITALS: BMI 25.4
== END 2024-03-22 11:00 | disposition home or self-care (01) ==
PROVIDERS: PCP Family Medicine; Visit Provider Surgery Vascular Surgery
DX: I73.9 Peripheral vascular disease, unspecified (principal)
CPT/HCPCS: 99213

== ENCOUNTER 2024-03-23 13:11 | Outpatient (REF) | payer MEDICARE, SELFPAY | END 2024-03-23 13:12 | disposition home or self-care (01) | LOC: HO.MAMMO 13:11 | PROVIDERS: PCP Family Medicine; Visit Provider Family Medicine | DX: Z12.31 Encounter for screening mammogram for malignant neoplasm of breast (principal) | CPT/HCPCS: 77063; 77067 ==

== ENCOUNTER → 2024-03-23 13:30 | Outpatient (BNV) | payer MEDICARE, SELFPAY | PROVIDERS: PCP Family Medicine; Visit Provider Radiology Diagnostic Radiology | DX: Z12.31 Encounter for screening mammogram for malignant neoplasm of breast (principal) | CPT/HCPCS: 77063; 77067 ==

== ENCOUNTER 2024-03-31 08:41 | Outpatient (REF) | payer MEDICARE, SELFPAY ==
--- NOTE | ~2024-03-31 | US_ITS ---
EXAMINATION: ULTRASOUND RENAL WITH DOPPLER CLINICAL INFORMATION: Peripheral vascular disease. Chronic kidney disease. COMPARISON: CT abdomen and pelvis to. TECHNIQUE: Real-time grayscale, color Doppler, and duplex Doppler evaluation of the kidneys and renal vasculature was performed. FINDINGS: RENAL MEASUREMENTS: Right: 8.9 x 3.4 x 4.4 cm (Sag x AP x TV) Left: 9.7 x 4.9 x 4.5 cm (Sag x AP x TV) Small kidneys. Parenchyma is normal echogenicity. Upper pole hydronephrosis of the left kidney is similar to prior CT scan. 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 DOPPLER INTERROGATION: AORTA: Mid aorta: 77 cm/sec RIGHT MAIN RENAL ARTERY: Proximal: 162 cm/sec Mid: 139 cm/sec Distal: 120 cm/sec LEFT MAIN RENAL ARTERY: Proximal: 157 cm/sec Mid: 209 cm/sec Distal: 145 cm/sec RENAL-AORTIC RATIO (RAR): Right: 2.1 Left: 2.7 SEGMENTAL RESISTIVE INDICES: Right: 0.83-0.87 Left: 0.79-0.84 RENAL VEINS: Right: Patent with normal waveform. Left: Patent with normal waveform. US/US renal doppler IMPRESSION: Elvira hydronephrosis of the left upper pole moiety similar to prior CT scan from 11/26/2023. Elevated velocity of the left main renal artery may indicate a hemodynamically significant renal artery stenosis. There is moderate ostial calcium of the left renal artery on the prior CT scan. Elevated resistive indices consistent with chronic medical renal disease.
--- NOTE | ~2024-03-31 | US_ITS ---
EXAMINATION: ULTRASOUND RENAL WITH DOPPLER CLINICAL INFORMATION: Peripheral vascular disease. Chronic kidney disease. COMPARISON: CT abdomen and pelvis to. TECHNIQUE: Real-time grayscale, color Doppler, and duplex Doppler evaluation of the kidneys and renal vasculature was performed. FINDINGS: RENAL MEASUREMENTS: Right: 8.9 x 3.4 x 4.4 cm (Sag x AP x TV) Left: 9.7 x 4.9 x 4.5 cm (Sag x AP x TV) Small kidneys. Parenchyma is normal echogenicity. Upper pole hydronephrosis of the left kidney is similar to prior CT scan. 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 DOPPLER INTERROGATION: AORTA: Mid aorta: 77 cm/sec RIGHT MAIN RENAL ARTERY: Proximal: 162 cm/sec Mid: 139 cm/sec Distal: 120 cm/sec LEFT MAIN RENAL ARTERY: Proximal: 157 cm/sec Mid: 209 cm/sec Distal: 145 cm/sec RENAL-AORTIC RATIO (RAR): Right: 2.1 Left: 2.7 SEGMENTAL RESISTIVE INDICES: Right: 0.83-0.87 Left: 0.79-0.84 RENAL VEINS: Right: Patent with normal waveform. Left: Patent with normal waveform. US/US renal BI IMPRESSION: Elvira hydronephrosis of the left upper pole moiety similar to prior CT scan from 11/26/2023. Elevated velocity of the left main renal artery may indicate a hemodynamically significant renal artery stenosis. There is moderate ostial calcium of the left renal artery on the prior CT scan. Elevated resistive indices consistent with chronic medical renal disease.
== END 2024-03-31 08:42 | disposition home or self-care (01) ==
LOC: HO.US 08:41
PROVIDERS: PCP Family Medicine; Visit Provider Internal Medicine Nephrology
DX: I73.9 Peripheral vascular disease, unspecified (principal); I12.9 Hypertensive chronic kidney disease with stage 1 through stage 4 chronic kidney disease, or unspecified chronic kidney disease; N18.32 Chronic kidney disease, stage 3b
CPT/HCPCS: 76775; 93975

== ENCOUNTER 2024-04-11 09:41 | Outpatient (AMB) | payer MEDICARE, SELFPAY ==
[2024-04-11 09:43] VITALS: BP 140/68; PULSE 76; BMI 25.5
--- NOTE | 2024-04-11 09:43 | A.OFFVIS_ITS ---
Vital Signs 04/11/24 09:43 Height 5 ft 7 in Weight 163 lb 2.273 oz BMI 25.5 BP 140/68 H Blood Pressure Location Lt brachial Position Sitting Pulse 76 Pulse Source Monitor Intake Visit Reasons: 1 yr f/up Intake Note: pt is here for 1 year follow up with ekg pt feels good Allergies metformin Allergy (Unknown, Verified 03/22/24 10:42) gi barium sulfate [From Eneset 2] Adverse Reaction (Mild, Verified 03/22/24 10:42) Stomach Upset carvedilol Adverse Reaction (Mild, Verified 03/22/24 10:42) Stomach Upset hydroxyzine Adverse Reaction (Mild, Verified 03/22/24 10:42) Stomach Upset metoprolol Adverse Reaction (Mild, Verified 03/22/24 10:42) Cough lisinopril Adverse Reaction (Unknown, Verified 03/22/24 10:42) cough Statins Support Allergy (Unknown, Uncoded 03/22/24 10:42) mx Medication List - Last Reconciled 04/11/24 by Severino Melendez MD amlodipine 2.5 mg PO BID 90 days aspirin 81 mg PO DAILY clopidogrel (Plavix) 75 mg PO DAILY 90 days gabapentin 300 mg PO DAILY HPI Comments Details: Anna comes for cardiovascular follow-up. Recently she underwent bilateral iliac stenting for disabling claudication. She says this has not improved her walking distance significantly. She continues to have claudication both lower extremities. She denies any mesenteric symptoms. Denies any anginal symptoms. Blood pressure is generally well controlled at home occasional systolic blood pressure about 140. She is currently off Repatha as she developed muscle aches on it as well. Her last LDL is at 155 mg per dL. Has any prolonged palpitation irregular heartbeat. No lightheadedness, syncope. [facility] Medical History Exertional angina Hyperlipidemia HTN (hypertension) PVD (peripheral vascular disease) Diabetes mellitus CAD (coronary artery disease) Surgical History Hx of appendectomy Stented coronary artery Social History Household Members: Children Housing: House Alcohol intake: never Patient Tobacco Use Status: Former Tobacco user Review of Systems Const Denies weakness ENT Denies dizziness Card Denies chest pain, Denies chest pain with activity, Denies syncope, Denies rapid heart rate, Denies pedal edema, Denies edema, Denies leg edema, Denies lightheadedness, Denies palpitations, Denies dyspnea, Denies dyspnea on exertion and Denies orthopnea Resp Denies cough, Denies dyspnea and Denies dyspnea on exertion GI Denies hematochezia and Denies change in stool character Musc Denies abnormal gait, Denies muscle cramps, Denies muscle weakness, Denies numbness, Denies radiating pain into limb and Denies tingling Neuro Denies abnormal gait, Denies dizziness, Denies syncope, Denies numbness, Denies tingling and Denies weakness Endo Denies palpitations Physical Exam Vital Signs: Last Vital Signs Pulse 76 04/11/24 09:43 BP 140/68 H 04/11/24 09:43 BMI result Body Mass Index 25.5 Const General: cooperative, healthy appearing, comfortable and no acute distress Orientation/consciousness: patient oriented x3 Neck Neck: Yes normal visual inspection and Yes no JVD Resp Effort & Inspection: normal respiratory effort Auscultation: clear to auscultation bilaterally, no crackles, no rales, no rhonchi and no wheezes Cardio Jugular venous distension: no JVD Rate: regular rate Rhythm: regular rhythm Heart sounds: S1 normal heart sound present, S2 normal heart sound present, no gallops, no murmurs and no rubs Bruits: carotid bruit bilaterally GI Inspection: Yes normal to inspection Neuro General: patient oriented x3 Extrem General: Yes normal to inspection Psych Appearance: grossly normal Mental Status: mental status grossly normal Speech and movement: Normal speech and movement present Office Procedures EKG Details: EKG shows normal sinus rhythm with diffuse ST T wave sagging. [id number], Complete Assessment & Plan Assessment & Plan (1) CAD (coronary artery disease): Code(s): I25.10 - Atherosclerotic heart disease of [place] coronary artery without angina pectoris Category: Medical Plan: CAD with prior drug-eluting stent to RCA with no current symptoms suggestive of angina. Her limitations are due to claudication. She recently underwent bilateral iliac artery stenting without any significant improvement in her symptoms. Currently on dual antiplatelet therapy for the same. Once Plavix has been completed in treatment consider adding Xarelto 2.5 mg b.i.d. for long term care social worker use in patients with diffuse vascular disease to reduce cerebrovascular as well as limb loss events. Continue aggressive blood pressure control. Can not tolerate any lipid lowering medications. Advised to call me with any anginal symptoms. (2) HTN (hypertension): Code(s): I10 - Essential (primary) hypertension Category: Medical Qualifiers: Hypertension type: renovascular hypertension Qualified Code(s): I15.0 - Renovascular hypertension Plan: Hypertension which is currently well controlled. Some expected elevated blood pressures are reasonable. However overall blood pressure control seems well controlled. Continue amlodipine 2.5 mg b.i.d.. Intermittent advised to monitor blood pressures. Stress mitigation strategies. Avoidance of salt loading was discussed. Follow up in the clinic in 1 year's time, sooner p.r.n.. Thank you for allowing me to partake in the care Coding Level of Care Code Est Pt Level 4 (14801) Diagnoses CAD (coronary artery disease) I25.10 Renovascular hypertension I15.0 Hypertension type: renovascular hypertension CPT Codes EKG - CPT: [id number], Complete ([id number])
== END 2024-04-11 10:04 | disposition home or self-care (01) ==
PROVIDERS: PCP Family Medicine; Visit Provider Internal Medicine Cardiovascular Disease
DX: I25.10 Atherosclerotic heart disease of native coronary artery without angina pectoris (principal); I15.0 Renovascular hypertension
CPT/HCPCS: 93010; 99214

== ENCOUNTER → 2024-04-11 09:41 | Outpatient (BNVA) | payer MEDICARE, SELFPAY | PROVIDERS: PCP Family Medicine; Visit Provider Internal Medicine Cardiovascular Disease | DX: I25.10 Atherosclerotic heart disease of native coronary artery without angina pectoris (principal); I15.0 Renovascular hypertension; Z79.01 Long term (current) use of anticoagulants; Z79.899 Other long term (current) drug therapy | CPT/HCPCS: 93005; 99212 ==

== ENCOUNTER 2024-04-26 14:35 | Outpatient (AMB) | payer MEDICARE, SELFPAY ==
[2024-04-26 15:09] VITALS: BP 130/60; PULSE 43; O2SAT 98; BMI 25.9
--- NOTE | 2024-04-26 15:09 | HO.NEPHOV ---
Vital Signs 04/26/24 15:09 Height 5 ft 7 in Weight 165 lb 8 oz BMI 25.9 BP 130/60 Blood Pressure Location Lt brachial Position Sitting Pulse 43 L Pulse Source Pulse Oximeter Pulse Oximetry (%) 98 Oxygen Delivery Method Room Air Intake Visit Reasons: 5wks follow up/ Conf [employer]per Required: No Allergies metformin Allergy (Unknown, Verified 04/26/24 15:11) gi barium sulfate [From Eneset 2] Adverse Reaction (Mild, Verified 04/26/24 15:11) Stomach Upset carvedilol Adverse Reaction (Mild, Verified 04/26/24 15:11) Stomach Upset hydroxyzine Adverse Reaction (Mild, Verified 04/26/24 15:11) Stomach Upset metoprolol Adverse Reaction (Mild, Verified 04/26/24 15:11) Cough lisinopril Adverse Reaction (Unknown, Verified 04/26/24 15:11) cough Statins Support Allergy (Unknown, Uncoded 03/22/24 10:42) mx HPI Comments Details: I had the privilege of seeing of seeing Anna in follow up for CKD and hypertension. She is a 83year old with H/O PAD as well as CAD. She is hypertensive on medications. She denied any retinopathy or neuropathy, CVA, CHF, renal stones, new bone or back pain, hypercalcemia, edema, hematuria, sensori neural deafness, epistaxis, photosensitivity, recent infection, skin rashes. Her serum creatinine has gone up to 2.1 but stable. She has no new systemic symptoms. She has left KATHY. She feels well but concerned about her decline in GFR [facility] Medical History Exertional angina Hyperlipidemia HTN (hypertension) PVD (peripheral vascular disease) Diabetes mellitus CAD (coronary artery disease) Surgical History Hx of appendectomy Stented coronary artery Social History Household Members: Children Housing: House Alcohol intake: never Patient Tobacco Use Status: Former Tobacco user Physical Exam Vital Signs: Last Vital Signs Pulse 43 L 04/26/24 15:09 BP 130/60 04/26/24 15:09 Pulse Ox 98 04/26/24 15:09 Oxygen Delivery Method Room Air 04/26/24 15:09 BMI result Body Mass Index 25.9 Const General: comfortable and no acute distress Orientation/consciousness: patient oriented x3 HEENT Head: Yes normocephalic Mouth: Normal oral and palatal mucosa present Eyes EOM: EOMs intact bilaterally Neck Neck: Yes supple Resp Auscultation: clear to auscultation bilaterally Cardio Jugular venous distension: no JVD Rate: regular rate GI Palpation (GI): Soft to palpation Auscultation: normal bowel sounds General: Yes no CVA tenderness Back/Spine/Pelvis Back: no CVA tenderness Skin General skin exam: no rashes or lesions noted Neuro General: patient oriented x3 and moves all extremities Extrem General: Yes no pedal edema Results Reviewed Nephrology Results: Hgb 12.0 g/dl (12.0-16.0) 03/16/24 WBC 5.0 X10*3/uL (4.8-10.8) 03/16/24 Plt Count 251 X10*3/uL (160-400) 03/16/24 Sodium 141 mmol/L (135-145) 03/16/24 Potassium 4.2 mmol/L (3.3-5.1) 03/16/24 Chloride 108 mmol/L (96-108) 03/16/24 Carbon Dioxide 26 mmol/L (22-29) 03/16/24 BUN 41 mg/dL (9-16) H 03/22/24 Creatinine 2.10 mg/dL (0.5-1.4) H 03/22/24 Calcium 9.8 mg/dL (8.4-10.2) 03/16/24 Urine Protein Negative mg/dL (Neg-Trace) 03/16/24 Urine Creatinine 74.57 mg/dL 03/16/24 Protein/Creatinin Ratio TNP 03/16/24 Renal US 03/31/24 Assessment & Plan Assessment & Plan (1) CKD stage 3b, GFR 30-44 ml/min: Code(s): N18.32 - Chronic kidney disease, stage 3b Category: Medical (2) HTN (hypertension): Code(s): I10 - Essential (primary) hypertension Category: Medical Qualifiers: Hypertension type: renovascular hypertension Qualified Code(s): I15.0 - Renovascular hypertension (3) Renal artery stenosis, [place]: Code(s): I70.1 - Atherosclerosis of renal artery Category: Medical Plan Anna has progressive decline GFR likely due to renovascular disease which was confirmed by imaging. She has coronary artery disease as well as PAD. She is on aspirin and Plavix. There is no reason to suspect any cholesterol embolism. She will benefit from renal angiogram and stenting of left renal artery( Dr Shereen galloway). Her blood pressure is currently controlled with amlodipine. She maintains good hydration and avoids nonsteroidal anti-inflammatories. Her 24 hour urine for creatinine clearance showed GFR of 32 mls/ mt. Answered all questions and follow-up given. Orders: Orders Creatinine Today I15.0 - Renovascular hypertension, I70.1 - Atherosclerosis of renal artery, N18.32 - Chronic kidney disease, stage 3b Blood Urea Nitrogen Today I15.0 - Renovascular hypertension, I70.1 - Atherosclerosis of renal artery, N18.32 - Chronic kidney disease, stage 3b Electrolytes Today I15.0 - Renovascular hypertension, I70.1 - Atherosclerosis of renal artery, N18.32 - Chronic kidney disease, stage 3b Coding Level of Care Code Est Pt Level 4 (54685) Diagnoses CKD stage 3b, GFR 30-44 ml/min N18.32 Renovascular hypertension I15.0 Hypertension type: renovascular hypertension Renal artery stenosis, [place] I70.1
== END 2024-04-26 15:36 | disposition home or self-care (01) ==
PROVIDERS: PCP Family Medicine; Visit Provider Internal Medicine Nephrology
DX: N18.32 Chronic kidney disease, stage 3b (principal); I15.0 Renovascular hypertension; I70.1 Atherosclerosis of renal artery
CPT/HCPCS: 99214

== ENCOUNTER → 2024-04-26 14:35 | Outpatient (BNVA) | payer MEDICARE, SELFPAY | PROVIDERS: PCP Family Medicine; Visit Provider Internal Medicine Nephrology | DX: N18.32 Chronic kidney disease, stage 3b (principal); I15.0 Renovascular hypertension; I70.1 Atherosclerosis of renal artery; Z79.02 Long term (current) use of antithrombotics/antiplatelets; Z79.82 Long term (current) use of aspirin; Z79.899 Other long term (current) drug therapy | CPT/HCPCS: 36415; 80051; 81001; 82565; 84520; 99212 ==

== ENCOUNTER 2024-04-26 15:56 | Outpatient (REF) | payer MEDICARE, SELFPAY ==
[2024-04-26 17:35] LABS: Appearance Urine Cloudy; Color Urine Yellow; Glucose Urine UA 100 mg/dL (Negative); Leukocyte Esterase Urine Moderate (2+) (Negative); Nitrite Urine Positive (Negative); PH 5.5 (5.0-9.0); Specific Gravity - Urine 1.015 (1.005-1.025); UMIC TRIGGER UA YES; Urine Blood Negative (Negative); Urine Ketones Negative (Negative); Urine Protein Trace mg/dL (Neg-Trace)
[2024-04-26 17:49] LABS: Anion Gap 14 (12-20); Blood Urea Nitrogen 37 mg/dL (9-16); Carbon Dioxide 19 mmol/L (22-29); Chloride 110 mmol/L (96-108); Estimated Glomerular Filt Rate 23; Potassium 4.2 mmol/L (3.3-5.1); Sodium 139 mmol/L (135-145)
[2024-04-26 18:03] LABS: Bacteria Urine 4+ (None Seen); Hyaline Casts Urine 0-2 /LPF (0-2); RBC Urine 0-2 /HPF (0-2); Squamous Epithelial Cell Urine 0-2 /HPF (0-2); WBC Urine >50 /HPF (0-5)
== END 2024-04-26 15:57 | disposition home or self-care (01) ==
LOC: HO.HKASLDS 15:56
PROVIDERS: Visit Provider Internal Medicine Nephrology
DX: Z13.89 Encounter for screening for other disorder (principal)
CPT/HCPCS: 36415; 80051; 81001; 82565; 84520

== ENCOUNTER 2024-06-22 10:22 | Outpatient (REF) | payer MEDICARE, SELFPAY ==
--- NOTE | ~2024-06-22 | US_ITS ---
EXAMINATION: Noninvasive assessment of the bilateral lower extremities with ARTERIAL DUPLEX and ANKLE BRACHIAL INDICES (ABIs). CLINICAL INFORMATION: Peripheral vascular disease, history of bilateral common iliac artery stents TECHNIQUE: Duplex Doppler techniques with waveform analysis and measurement of velocities in the bilateral common femoral, profunda femoris, superficial femoral, popliteal and tibial arteries were performed. Additionally, ankle pulse volume recordings, ankle pressure measurements and ankle brachial indices were obtained of the lower extremity arterial system bilaterally. The study was performed only at rest. COMPARISON: Noninvasive evaluation from 02/01/2024 FINDINGS: DIRECT DUPLEX DOPPLER FINDINGS: Distal aorta: 198 cm/s, phasicity: Biphasic RIGHT LEG: Common iliac artery: 201 cm/s, phasicity: Monophasic External iliac artery: 88.0 cm/s, phasicity: Monophasic Common femoral artery: 134 cm/s, phasicity: Biphasic Profunda femoris artery: 142 cm/s, phasicity: Monophasic Superficial femoral artery (proximal): 43.5 cm/s, phasicity: Monophasic Superficial femoral artery (mid): Occluded Superficial femoral artery (distal): 83.3 cm/s, phasicity: Monophasic Popliteal artery: 48.5 cm/s, phasicity: Monophasic Posterior tibial artery: 23 cm/s, phasicity: Monophasic Peroneal artery: 26.7 cm/s, phasicity: Monophasic Anterior tibial artery: 22.2 cm/s, phasicity: Monophasic Dorsalis pedis artery: 13.9 cm/s, phasicity:Monophasic LEFT LEG: Common iliac artery: 166 cm/s, phasicity: Monophasic External iliac artery: 116 cm/s, phasicity: Monophasic Common femoral artery: 541 cm/s, phasicity: Monophasic Profunda femoris artery: 93.1 cm/s, phasicity: Monophasic Superficial femoral artery (proximal): 57.6 cm/s, phasicity: Monophasic Superficial femoral artery (mid): Occluded Superficial femoral artery (distal): Occluded Popliteal artery: 51.2 cm/s, phasicity: Monophasic Posterior tibial artery: 22.7 cm/s, phasicity: Monophasic Peroneal artery: 8.9 cm/s, phasicity: Monophasic Anterior tibial artery: 85.7 cm/s, phasicity: Monophasic Dorsalis pedis artery: Occluded ANKLE-BRACHIAL INDEX: Right: 0.41, previously 0.47 Left: 0.33, previously 0.49 ANKLE PRESSURES: Right: PT 84, DP 74 Left: PT 69, DP not detected ANKLE PVR WAVEFORMS: Right: Abnormal Left: Abnormal US/US arterial duplex LE BI IMPRESSION: Right leg: Severely decreased ankle-brachial index, unchanged. Common iliac artery stent is patent with mildly elevated velocities. 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 Common iliac artery stent is patent with mildly elevated velocities. Severely elevated velocity in the common femoral artery consistent with severe stenosis. 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
== END 2024-06-22 10:23 | disposition home or self-care (01) ==
LOC: HO.US 10:22
PROVIDERS: PCP Family Medicine; Visit Provider Surgery Vascular Surgery
DX: I73.9 Peripheral vascular disease, unspecified (principal)
CPT/HCPCS: 93923; 93925

== ENCOUNTER 2024-06-30 11:11 | Outpatient (AMB) | payer MEDICARE, SELFPAY ==
[2024-06-30 11:32] VITALS: BP 124/74; PULSE 80; BMI 26.2
--- NOTE | 2024-06-30 11:32 | MHC.OFFVIS ---
Vital Signs 06/30/24 11:32 Height 5 ft 7 in Weight 167 lb 8.821 oz BMI 26.2 BP 124/74 Blood Pressure Location Lt brachial Position Sitting Pulse 80 Intake Visit Reasons: 6 mth f/up Intake Note: 6 month follow-up feeling good [employer] Medic Required: No Allergies metformin Allergy (Unknown, Verified 04/26/24 15:11) gi barium sulfate [From Eneset 2] Adverse Reaction (Mild, Verified 04/26/24 15:11) Stomach Upset carvedilol Adverse Reaction (Mild, Verified 04/26/24 15:11) Stomach Upset hydroxyzine Adverse Reaction (Mild, Verified 04/26/24 15:11) Stomach Upset metoprolol Adverse Reaction (Mild, Verified 04/26/24 15:11) Cough lisinopril Adverse Reaction (Unknown, Verified 04/26/24 15:11) cough Statins Support Allergy (Unknown, Uncoded 03/22/24 10:42) mx Medication List - Last Reconciled 06/30/24 by Severino Melendez MD amlodipine 2.5 mg PO BID 90 days aspirin 81 mg PO DAILY clopidogrel (Plavix) 75 mg PO DAILY 90 days gabapentin 300 mg PO DAILY HPI Comments Details: Anna comes for follow-up. He denies any cardiac symptoms. Does get some increased exertional shortness of breath. Denies any orthopnea, PND. 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 She underwent stenting in his lower extremity but does not see much improvement in his symptoms of claudication. She denies any prolonged palpitation irregular heartbeat. Blood pressure at home have been mostly well controlled on current medications. Currently not on any statin therapy. Takes dual antiplatelet therapy. [facility] Medical History Exertional angina Hyperlipidemia HTN (hypertension) PVD (peripheral vascular disease) Diabetes mellitus CAD (coronary artery disease) Surgical History Hx of appendectomy Stented coronary artery Social History Household Members: Children Housing: House Alcohol intake: never Patient Tobacco Use Status: Former Tobacco user Review of Systems Const Denies chills, Denies fatigue, Denies fever(s), Denies frequent falls, Denies weakness, Denies weight gain and Denies weight loss ENT Denies dizziness Card Denies chest pain, Denies leg edema, Denies lightheadedness, Denies palpitations, Denies dyspnea, Denies dyspnea on exertion, Denies orthopnea and Denies other (loss of consciousness) Resp Denies cough, Denies dyspnea and Denies dyspnea on exertion GI Denies hematochezia and Denies change in stool character Musc Denies abnormal gait, Denies muscle weakness, Denies numbness, Denies radiating pain into limb and Denies tingling Neuro Denies abnormal gait, Denies dizziness, Denies frequent falls, Denies numbness, Denies tingling and Denies weakness Endo Denies fatigue and Denies palpitations Physical Exam Vital Signs: Last Vital Signs Pulse 80 06/30/24 11:32 BP 124/74 06/30/24 11:32 BMI result Body Mass Index 26.2 Const General: cooperative, healthy appearing, comfortable and no acute distress Orientation/consciousness: patient oriented x3 Neck Neck: Yes normal visual inspection and Yes no JVD Resp Effort & Inspection: normal respiratory effort Auscultation: clear to auscultation bilaterally, no crackles, no rales, no rhonchi and no wheezes Cardio Jugular venous distension: no JVD Rate: regular rate Rhythm: regular rhythm Heart sounds: S1 normal heart sound present, S2 normal heart sound present, no gallops, no murmurs and no rubs Bruits: carotid bruit bilaterally GI Inspection: Yes normal to inspection Neuro General: patient oriented x3 Extrem General: Yes normal to inspection Psych Appearance: grossly normal Mental Status: mental status grossly normal Speech and movement: Normal speech and movement present Assessment & Plan Assessment & Plan (1) CAD (coronary artery disease): Code(s): I25.10 - Atherosclerotic heart disease of [place] coronary artery without angina pectoris Category: Medical Plan: Diffuse and significant atherosclerotic burden throughout her system including peripheral vascular disease, mesenteric disease, CAD status post stenting. Overall she has risk of progressive atherosclerotic disease and events given that she is not on all aggressive medical therapy including statin therapy. She has not been able to tolerate statin therapy she is not interested in other forms of anti lipid-lowering therapy. Continue dual antiplatelet therapy, can consider low-dose oral anticoagulation therapy. Currently blood pressure is well optimized on current low-dose amlodipine therapy. Overall prognosis is guarded. Continue diabetes management through your office. (2) Ischemic cardiomyopathy: Code(s): I25.5 - Ischemic cardiomyopathy Category: Medical Plan: Normalized LV ejection fraction with medical therapy. Last LVEF of 57%. Has underlying regional wall motion abnormality in RCA/circumflex territory. Continue dual antiplatelet therapy. Has not been able to tolerate other forms of therapy with low blood pressure and labile blood pressure response. Continue amlodipine therapy. Signs and symptoms of heart failure were discussed. Follow up in the clinic in 6 months time after an echocardiogram. Thank you for allowing me to partake in his Orders: Orders CA echo transthoracic complete 6 Months I25.5 - Ischemic cardiomyopathy Coding Level of Care Code Est Pt Level 4 (08174) Diagnoses CAD (coronary artery disease) I25.10 Ischemic cardiomyopathy I25.5
== END 2024-06-30 13:54 | disposition home or self-care (01) ==
PROVIDERS: PCP Family Medicine; Visit Provider Internal Medicine Cardiovascular Disease
DX: I25.10 Atherosclerotic heart disease of native coronary artery without angina pectoris (principal); I25.5 Ischemic cardiomyopathy
CPT/HCPCS: 99214

== ENCOUNTER → 2024-06-30 11:11 | Outpatient (BNVA) | payer MEDICARE, SELFPAY | PROVIDERS: PCP Family Medicine; Visit Provider Internal Medicine Cardiovascular Disease | DX: I25.10 Atherosclerotic heart disease of native coronary artery without angina pectoris (principal); I25.5 Ischemic cardiomyopathy; Z79.02 Long term (current) use of antithrombotics/antiplatelets | CPT/HCPCS: 99212 ==

== ENCOUNTER 2024-07-19 11:50 | Outpatient (REF) | payer MEDICARE, SELFPAY ==
[2024-07-19 12:06] LABS: MANUAL DIFF FLAG NO
[2024-07-19 12:26] LABS: Basophils Percent Auto 0.7 % (0-2); Eosinophils Absolute Auto 0.1 X10*3/uL (0.0-0.4); Eosinophils Percent Auto 2.4 % (0-4); Hematocrit 38.6 % (37.0-47.0); Hemoglobin 12.5 g/dl (12.0-16.0); Imm Gran Abs Auto 0.01 X10*3/uL (0.00-0.03); Imm Gran Pct Auto 0.2 % (0.0-0.4); Lymphocytes Absolute Auto 1.2 X10*3/uL (1.2-4.9); Lymphocytes Percent Auto 26.3 % (20-40); Mean Corpuscular HGB Conc 32.4 g/dl (31.0-35.0); Mean Corpuscular Hemoglobin 29.2 pg (27.0-33.0); Mean Corpuscular Volume 90.2 fL (80.0-98.0); Mean Platelet Volume 10.1 fL (9.4-12.3); Monocytes Absolute Auto 0.5 X10*3/uL (0.1-1.2); Monocytes Percent Auto 9.9 % (2-11); Neutrophils Absolute Auto 2.8 x10*3/uL (2.0-8.3); Neutrophils Percent Auto 60.5 % (45-73); Platelet Count 194 X10*3/uL (160-400); Red Blood Count 4.28 X10*6/uL (4.20-5.50); Red Cell Distribution Width 12.5 % (11.0-16.0); White Blood Count 4.6 X10*3/uL (4.8-10.8)
[2024-07-19 12:30] LABS: Estimated Average Glucose 154 mg/dL; Hemoglobin A1C 168.0714 umol/L; Total Hemoglobin (HGBA1C) 3148.5483 umol/L
[2024-07-19 12:45] LABS: Glucose Fasting 157 mg/dL (60-99)
[2024-07-19 13:35] LABS: Creatinine Urine 63.91 mg/dL; Microalbum/Creatinine Ratio Ur 23.4 ug/mg cr (<30)
== END 2024-07-19 11:51 | disposition home or self-care (01) ==
LOC: HO.LAB 11:50
PROVIDERS: PCP Family Medicine; Visit Provider Family Medicine
DX: E11.9 Type 2 diabetes mellitus without complications (principal); D72.819 Decreased white blood cell count, unspecified; I73.9 Peripheral vascular disease, unspecified
CPT/HCPCS: 36415; 82043; 82570; 82947; 83036; 85025; 99212

== ENCOUNTER 2024-07-19 14:04 | Outpatient (AMB) | payer MEDICARE, SELFPAY ==
[2024-07-19 14:07] VITALS: BMI 26.2
--- NOTE | 2024-07-19 14:07 | MHC.OFFVIS ---
Vital Signs 07/19/24 14:07 Height 5 ft 7 in Weight 167 lb BMI 26.2 Intake Visit Reasons: follow up s/p Arterial US 06/22/24 Intake Note: 3 mo follow up Arterial US 06/22/24 w/ hx of Left LE Angio 03/02/24. Pt states bilateral LE are horrible. Accompanied by: Self / Same As Patient Allergies metformin Allergy (Unknown, Verified 07/19/24 14:11) gi barium sulfate [From Eneset 2] Adverse Reaction (Mild, Verified 07/19/24 14:11) Stomach Upset carvedilol Adverse Reaction (Mild, Verified 07/19/24 14:11) Stomach Upset hydroxyzine Adverse Reaction (Mild, Verified 07/19/24 14:11) Stomach Upset metoprolol Adverse Reaction (Mild, Verified 07/19/24 14:11) Cough lisinopril Adverse Reaction (Unknown, Verified 07/19/24 14:11) cough Statins Support Allergy (Unknown, Uncoded 07/19/24 14:11) mx HPI HPI follow up s/p Arterial US 06/22/24: Details: Very pleasant 84-year-old female presents for follow-up regarding peripheral vascular disease. She underwent previous bilateral iliac artery stenting. She reports no significant difference. She notes that she can go about 200 ft with her mower prior to any significant difficulty. She now presents for routine follow-up with noninvasive testing [facility] Medical History Exertional angina Hyperlipidemia HTN (hypertension) PVD (peripheral vascular disease) Diabetes mellitus CAD (coronary artery disease) Surgical History Hx of appendectomy Stented coronary artery Social History Household Members: Children Housing: House Alcohol intake: never Patient Tobacco Use Status: Former Tobacco user Review of Systems Const All systems reviewed & are unremarkable except as noted in HPI and below Reports no additional complaints ENT Reports Normal hearing present Card Denies chest pain, Denies chest pain at rest, Denies chest pain with activity and Denies pedal edema Resp Denies cough GI Denies abdominal pain Musc Denies abnormal gait, Denies muscle cramps and Denies radiating pain into limb Skin/Breast Denies skin ulcer and Denies wounds Neuro Reports Normal hearing present and Denies abnormal gait Psych Reports no additional complaints Physical Exam Vital Signs: BMI result Body Mass Index 26.2 Const General: cooperative, healthy appearing and comfortable Orientation/consciousness: oriented to person, oriented to place and oriented to time HEENT Head: Yes normal to inspection Neck Neck: Yes normal visual inspection Carotids: no bruits Chest Chest palpation & inspection: normal inspection of the chest Resp Effort & Inspection: normal respiratory effort and able to speak in complete sentences Auscultation: clear to auscultation bilaterally, no crackles, no rales, no rhonchi and no wheezes Cardio Other: Bilateral DP signals Rate: regular rate Rhythm: regular rhythm Heart sounds: S1 normal heart sound present and S2 normal heart sound present Bruits: no carotid bruits Peripheral pulses: Peripheral pulses 2+ throughout GI Inspection: Yes normal to inspection Skin Wounds: no wounds Hair: normal Neuro General: oriented to person, oriented to place and oriented to time Cranial nerves: Yes CN's II-XII intact bilaterally and Yes Normal hearing present Cognition (Neuro): normal cognition Motor exam (neuro): 5/5 motor strength present throughout Extrem Other: venous exam: No significant superficial varicosities or spider telangiectasias, minimal edema General: No clubbing, No cyanosis and No edema Psych Appearance: grossly normal Mental Status: mental status grossly normal Speech and movement: Normal speech and movement present Results Reviewed Results Reviewed: Noninvasive arterial testing dated 06/22/2024 demonstrates TIN on the right of 0.41 and on the left of 0.33. Unfortunately they have not improved since her intervention. Both have monophasic waveforms all the way throughout. Assessment & Plan Assessment & Plan (1) PVD (peripheral vascular disease): Comment: 03/02/2024 - bilateral iliac stents Code(s): I73.9 - Peripheral vascular disease, unspecified Category: Medical Plan: In short patient has severe peripheral vascular disease. I have taken the liberty of ordering a CTA runoff to better elucidate the locations of stenosis in addition to the status of her prior stenting. I did discuss the need for possible future reintervention. She will follow up with us after testing. Thank you for allowing us to assist in her care. If there are any questions or concerns please do not hesitate to contact us. Please note a longitudinal relationship has been created with the patient and we have been following and surveillance this chronic condition. Orders: Orders CT angio abd aorta runoff 1 Week I73.9 - Peripheral vascular disease, unspecified Blood Urea Nitrogen Today I73.9 - Peripheral vascular disease, unspecified Creatinine Today I73.9 - Peripheral vascular disease, unspecified Coding Level of Care Code Est Pt Level 4 (81072) Complex EM visit Add On G2211 Diagnoses PVD (peripheral vascular disease) I73.9
== END 2024-07-19 14:31 | disposition home or self-care (01) ==
PROVIDERS: PCP Family Medicine; Visit Provider Surgery Vascular Surgery
DX: I73.9 Peripheral vascular disease, unspecified (principal)
CPT/HCPCS: 99214; G2211

== ENCOUNTER 2024-07-21 11:22 | Outpatient (AMB) | payer MEDICARE, SELFPAY ==
[2024-07-21 11:33] VITALS: BP 124/54; BMI 26.5
--- NOTE | 2024-07-21 11:33 | HO.NEPHOV_ITS ---
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 Accompanied by: Self / Same As Patient Allergies metformin Allergy (Unknown, Verified 07/21/24 11:34) gi barium sulfate [From Eneset 2] Adverse Reaction (Mild, Verified 07/21/24 11:34) Stomach Upset carvedilol Adverse Reaction (Mild, Verified 07/21/24 11:34) Stomach Upset hydroxyzine Adverse Reaction (Mild, Verified 07/21/24 11:34) Stomach Upset metoprolol Adverse Reaction (Mild, Verified 07/21/24 11:34) Cough lisinopril Adverse Reaction (Unknown, Verified 07/21/24 11:34) cough Statins Support Allergy (Unknown, Uncoded 07/19/24 14:11) mx HPI Comments Details: I had the privilege of seeing of seeing Anna in follow up for CKD and hypertension. She is a 83year old with H/O PAD as well as CAD. She is hypertensive on medications. She denied any retinopathy or neuropathy, CVA, CHF, renal stones, new bone or back pain, hypercalcemia, edema, hematuria, sensori neural deafness, epistaxis, photosensitivity, recent infection, skin rashes. Her serum creatinine has gone up to 2.1 but stable. She has no new systemic symptoms. She has left KATHY. She feels well but concerned about her decline in GFR PFSH Medical History Exertional angina Hyperlipidemia HTN (hypertension) PVD (peripheral vascular disease) Diabetes mellitus CAD (coronary artery disease) Surgical History Hx of appendectomy Stented coronary artery Social History Household Members: Children Housing: House Alcohol intake: never Patient Tobacco Use Status: Former Tobacco user Review of Systems Const All systems reviewed & are unremarkable except as noted in HPI and below Physical Exam Vital Signs: Last Vital Signs BP 124/54 L 07/21/24 11:33 BMI result Body Mass Index 26.5 Const General: comfortable and no acute distress Orientation/consciousness: patient oriented x3 HEENT Head: Yes normocephalic Mouth: Normal oral and palatal mucosa present Eyes EOM: EOMs intact bilaterally Neck Neck: Yes supple Resp Auscultation: clear to auscultation bilaterally Cardio Jugular venous distension: no JVD Rate: regular rate Heart sounds: Murmur heart sound present GI Palpation (GI): Soft to palpation Auscultation: normal bowel sounds General: Yes no CVA tenderness Back/Spine/Pelvis Back: no CVA tenderness Skin General skin exam: no rashes or lesions noted Neuro General: patient oriented x3 and moves all extremities Extrem General: Yes no pedal edema Results Reviewed Nephrology Results: Hgb 12.5 g/dl (12.0-16.0) 07/19/24 WBC 4.6 X10*3/uL (4.8-10.8) L 07/19/24 Plt Count 194 X10*3/uL (160-400) 07/19/24 Sodium 139 mmol/L (135-145) 04/26/24 Potassium 4.2 mmol/L (3.3-5.1) 04/26/24 Chloride 110 mmol/L (96-108) H 04/26/24 Carbon Dioxide 19 mmol/L (22-29) L 04/26/24 BUN 37 mg/dL (9-16) H 04/26/24 Creatinine 2.07 mg/dL (0.5-1.4) H 04/26/24 Urine Protein Trace mg/dL (Neg-Trace) 04/26/24 Urine Creatinine 63.91 mg/dL 07/19/24 Renal US 03/31/24 Assessment & Plan Assessment & Plan (1) CKD stage 3b, GFR 30-44 ml/min: Code(s): N18.32 - Chronic kidney disease, stage 3b Category: Medical (2) Renal artery stenosis, [employer]: Code(s): I70.1 - Atherosclerosis of renal artery Category: Medical (3) HTN (hypertension): Code(s): I10 - Essential (primary) hypertension Category: Medical Qualifiers: Hypertension type: renovascular hypertension Qualified Code(s): I15.0 - Renovascular hypertension Plan Anna has progressive decline GFR likely due to renovascular disease which was confirmed by imaging. She has coronary artery disease as well as PAD. She is on aspirin and Plavix. There is no reason to suspect any cholesterol embolism. Her blood pressure is currently controlled with amlodipine. She maintains good hydration and avoids nonsteroidal anti-inflammatories. ( She was on Jardiance- was not agreeing with her as per patient). Her 24 hour urine for creatinine clearance showed GFR of 32 mls/ mt. Answered all questions and follow-up given Orders: Orders Blood Urea Nitrogen 4 Months N18.32 - Chronic kidney disease, stage 3b Electrolytes 4 Months N18.32 - Chronic kidney disease, stage 3b Creatinine 4 Months N18.32 - Chronic kidney disease, stage 3b Coding Level of Care Code Est Pt Level 4 (24413) Diagnoses CKD stage 3b, GFR 30-44 ml/min N18.32 Renal artery stenosis, [employer] [place] I70.1 Renovascular hypertension I15.0 Hypertension type: renovascular hypertension
== END 2024-07-21 11:51 | disposition home or self-care (01) ==
PROVIDERS: PCP Family Medicine; Visit Provider Internal Medicine Nephrology
DX: I13.10 Hypertensive heart and chronic kidney disease without heart failure, with stage 1 through stage 4 chronic kidney disease, or unspecified chronic kidney disease (principal); N18.32 Chronic kidney disease, stage 3b; I70.1 Atherosclerosis of renal artery; I25.10 Atherosclerotic heart disease of native coronary artery without angina pectoris
CPT/HCPCS: 99214

== ENCOUNTER → 2024-07-21 11:22 | Outpatient (BNVA) | payer MEDICARE, SELFPAY | PROVIDERS: PCP Family Medicine; Visit Provider Internal Medicine Nephrology | DX: I15.0 Renovascular hypertension (principal); E11.51 Type 2 diabetes mellitus with diabetic peripheral angiopathy without gangrene; E11.22 Type 2 diabetes mellitus with diabetic chronic kidney disease; N18.9 Chronic kidney disease, unspecified; I25.10 Atherosclerotic heart disease of native coronary artery without angina pectoris; I70.1 Atherosclerosis of renal artery | CPT/HCPCS: 99212 ==

== ENCOUNTER 2024-09-15 10:51 | Outpatient (REF) | payer MEDICARE, SELFPAY ==
--- NOTE | ~2024-09-15 | CT_ITS ---
STUDY PERFORMED: CTA ABDOMEN, PELVIS AND LOWER EXTREMITY RUNOFF WITH CONTRAST HISTORY: I73.9 - Peripheral vascular disease, unspecified DESCRIPTION: Routine abdominal aorta and lower extremity runoff CTA protocol with contrast was performed. 100 mL of Omnipaque was administered. 3D POSTPROCESSING: Multiple 3-D angiographic images were processed from the initial data set by the [facility] under concurrent physician supervision. DOSE LOWERING TECHNIQUES: This CT examination was performed using dose optimization techniques as appropriate, variously including the following: - Automated exposure control - Adjustment of mA and/or kV according to patient size (this includes techniques or standardized protocols for targeted exams where dose is matched to indication/reason for exam; i.e. extremities or head) - Use of iterative reconstruction technique DLP: 713 mGycm. COMPARISON: Lower extremity arterial duplex June 22, 2024 FINDINGS: VASCULAR: ABDOMINAL AORTA: Normal in caliber. Extensive calcific and fibrofatty plaque RIGHT LOWER EXTREMITY: - Common Iliac Artery: Patent common iliac artery stent in place - Internal Iliac Artery: Plaque throughout - External Iliac Artery: patent - Common Femoral Artery: patent - Profunda Femoral Artery: patent - Superficial Femoral Artery: Diminutive with multifocal high-grade stenoses. Focal occlusion in the region of the adductor canal. - Popliteal Artery: Diminutive with plaque causing multifocal stenoses - Anterior Tibial Artery: patent -Tibioperoneal trunk: patent - Posterior Tibial Artery: patent - Peroneal Artery: patent LEFT LOWER EXTREMITY: - Common Iliac Artery: Patent stent in place - Internal Iliac Artery: patent - External Iliac Artery: Plaque distally causing high-grade stenosis - Common Femoral Artery: Plaque causing high-grade stenosis - Profunda Femoral Artery: patent - Superficial Femoral Artery: Diminutive, with multifocal high-grade stenoses. Focal occlusion region of the adductor canal - Popliteal Artery: Diminutive with plaque causing multifocal stenoses - Anterior Tibial Artery: Occluded -Tibioperoneal trunk: patent - Posterior Tibial Artery: patent - Peroneal Artery: patent CELIOMESENTERIC ARTERIES: High-grade stenosis versus occlusion of the origin of the celiac artery. The SMA is patent. The DA is patent RENAL ARTERIES: Patent bilateral renal arteries NONVASCULAR: Lung Bases: The visualized lung bases are unremarkable. Liver and Biliary Tree: The liver is normal in size, shape, and attenuation. Hyperenhancing peripheral lesion in the right lobe, likely a flash filling hemangioma. Gallbladder: The gallbladder is unremarkable with no evidence of radiopaque gallstones, gallbladder wall thickening, or obvious pericholecystic inflammatory changes. Pancreas: Unremarkable. Spleen: Unremarkable. Adrenal Glands: Unremarkable. Kidneys and Ureters: The kidneys are normal in size. Unchanged severe left-sided hydronephrosis and hydroureter. Unchanged 8 mm stone in the distal left ureter. Bladder: Unremarkable. Gastrointestinal Tract: The small and large bowel are unremarkable. The appendix is unremarkable. Abdominal Wall: No significant hernia is appreciated. Lymph Nodes: Normal. Pelvic Viscera: Unremarkable. Osseous Structures: Multilevel degenerative changes of the lumbar spine. Degenerative changes greater on the right. CT/CT angio abd aorta runoff IMPRESSION: 1. Patent bilateral common iliac artery stents. 2. High-grade stenosis of the distal left external iliac artery. 3. Diminutive bilateral superficial femoral arteries with multifocal high-grade stenoses and focal occlusions in the region of the adductor canals. 4. Diminutive bilateral popliteal arteries with multifocal stenoses. 5. Two-vessel runoff to the right foot and two-vessel runoff to the left foot. 6. Unchanged severe left-sided hydronephrosis and hydroureter with an 8 mm stone in the distal left ureter. Electronically signed by: Brandon Lang MD 09/19/2024 04:19 PM [facility]
--- OUTSIDE RECORDS SUMMARY | 2024-09-15 10:54 | XMS_ITS | Encounter Summary ---
Author Name Department [facility] ([place]) Organization Department of [facility] ([place]) Address [address] [place] [address] Insurance Providers: All historical and current Section Date Range: From patient's date of to the date document was created. This section includes the names of all active insurance providers for the patient. Insurance Provider Type of Coverage Plan Name Start of Policy Coverage End of Policy Coverage Group Number Member ID Insurance Provider's Telephone Number Policy Griffin's Name Patient's Relationship to Policy Griffin [facility] (WNR) MEDICARE ADVANTAGE [facility] (WNR) Jan 03, 2021 [id number] DHIRAJ WRIGHT PATIENT Selected Encounter This section includes the information on record at [place] for the Encounter. Date/Time Encounter Type Encounter Description Reason Provider Source Oct 14, 2023 03:26 PM HC PRO PHONE CALL 5-10 MIN TELEPHONE/ANCILLAR Y ICD-10-CM Z71.0 Prsn encntr hlth serv to consult on behalf of another person JULIANA CUNNINGHAM Encounter Template Text not used by [place] Assessments - Encounter Diagnoses This section includes the primary and secondary diagnoses documented for the Encounter. Date/Time Primary/Secondary Diagnosis Diagnosis Name Provider Source Oct 14, 2023 03:26 PM PRIMARY Prsn encntr hlth serv to consult on behalf of another person JULIANA [facility]NINGHAM [facility] Encounter Notes: All associated encounter notes This section contains the clinical notes associated to the Encounter. Date/Time Encounter Note(s) Provider Source Oct 14, 2023 03:26 PM CAREGIVER CERTIFIC ATE: LOCAL TITLE: CSP TELEPHONE NOTE STANDARD TITLE: CAREGIVER CERTIFICATE DATE OF NOTE: OCT 14, 2023@15:26 ENTRY DATE: OCT 14, 2023@15:26:45 AUTHOR: JULIANA CUNNINGHAM EXP COSIGNER: URGENCY: STATUS: COMPLETED Chief Technologist called 's caregiver at [phone]. Chief Technologist reached caregiver. Chief Technologist introduced herself as her and 's recently assigned [facility] Qa Consultant. Chief Technologist confirmed was hospitalized at [facility] on 09/28/24 and transferred to [facility] on 10/07/23. Chief Technologist asked for the plan with this placement. Caregiver reports she does not know. Caregiver reports is under hospice level of care but a previous community care provider told her he has a 6 month life expectancy therefore she still has hope that he can return to their family home. Chief Technologist asked that caregiver contact property underwriter to inform her if this admission turns into a longterm placement, in the event is discharged home, or if expires. Chief Technologist also asked that she contact property underwriter with any further questions and or concerns. Caregiver agreed to do so and thanked property underwriter for her call. /charles/ JULIANA RAMIREZ LCSW CAREGIVER SUPPORT BRAIDING MACHINE OPERATOR Signed: 10/15/2023 10:08 JULIANA CUNNINGHAM [facility]
--- OUTSIDE RECORDS SUMMARY | 2024-09-15 10:54 | XMS_ITS ---
Author Name Department [facility] ([place]) Organization Department of [facility] ([place]) Address [address] [place] [address] Insurance Providers: All historical and current Section Date Range: From patient's date of to the date document was created. This section includes the names of all active insurance providers for the patient. Insurance Provider Type of Coverage Plan Name Start of Policy Coverage End of Policy Coverage Group Number Member ID Insurance Provider's Telephone Number Policy Griffin's Name Patient's Relationship to Policy Griffin [facility] (WNR) MEDICARE ADVANTAGE [facility] (WNR) Jan 03, 2021 [id number] DHIRAJ WRIGHT PATIENT Selected Encounter This section includes the information on record at [place] for the Encounter. Date/Time Encounter Type Encounter Description Reason Provider Source Oct 30, 2023 09:46 AM HC PRO PHONE CALL 5-10 MIN TELEPHONE/ANCILLAR Y ICD-10-CM Z71.0 Prsn encntr hlth serv to consult on behalf of another person UJLIANA CUNNINGHAM Encounter Template Text not used by [place] Assessments - Encounter Diagnoses This section includes the primary and secondary diagnoses documented for the Encounter. Date/Time Primary/Secondary Diagnosis Diagnosis Name Provider Source Oct 30, 2023 09:46 AM PRIMARY Prsn encntr hlth serv to consult on behalf of another person JULIANA CUNNINGHAM [facility] Encounter Notes: All associated encounter notes This section contains the clinical notes associated to the Encounter. Date/Time Encounter Note(s) Provider Source Oct 30, 2023 09:46 AM CAREGIVER CERTIFIC ATE: LOCAL TITLE: CSP TELEPHONE NOTE STANDARD TITLE: CAREGIVER CERTIFICATE DATE OF NOTE: OCT 30, 2023@09:46 ENTRY DATE: OCT 30, 2023@09:46:16 AUTHOR: JULIANA CUNNINGHAM EXP COSIGNER: URGENCY: STATUS: COMPLETED [facility] TELEPHONE NOTE Has ADDENDA Range Management Specialist called 's caregiver at [phone]. Range Management Specialist reviewed previous conversation where caregiver did not know if will improve with his overall physicality. Caregiver explained this is not able to bare weight and she is not able to lift him. Caregiver reports she met with the hospice nurse and discussed these concerns as wants to return to the family home. Caregiver described 's hospice nurse establishing a PT referral for in order to support his being able to bare weight. Caregiver reports wants to return home however if he can not stand; for safety purposes she can not take him home. As it is unclear as to whether or not will improve and may return to the family home, creative writer and caregiver agreed this and caregiver's CSP PCAFC case will remain open until further notice. Range Management Specialist and caregiver scheduled a CSP PCAFC Wellness Assessment on Thursday11/03/23 at 10:30am. Caregiver and are due for an annual CSP PCAFC reassessment however this has to be initiated close to discharge if not upon return to the family home. Caregiver agreed to maintain close contact with creative writer regarding 's discharge to the family home. Caregiver confirmed when she met with the hospice nurse yesterday they spoke about her concerns with 's psychosis in relation to his medications. 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 Caregiver states that 's hospice nurse added medications to address 's psychosis. Caregiver is aware that she can contact creative writer with any further questions and concerns. /laz RAMIREZ LCSW CAREGIVER SUPPORT PLANER FEEDER Signed: 10/30/2023 09:46 10/30/2023 ADDENDUM STATUS: COMPLETED Range Management Specialist called 's caregiver at [phone]. Range Management Specialist confirmed had completed a Wellness Assessment on 09/14/23 therefore the next Wellness Assessment will not be due until 01/14/24. Range Management Specialist cancelled the previously scheduled Wellness Asessment on 11/03/23. Caregiver thanked creative writer for the notification. /laz RAMIREZ LCSW CAREGIVER SUPPORT PLANER FEEDER Signed: 10/30/2023 11:23 JULIAAN [facility]NINGHAM [facility]
--- OUTSIDE RECORDS SUMMARY | 2024-09-15 10:54 | XMS_ITS ---
Author Name Department [facility] ([place]) Organization Department of [facility] ([place]) Address [address] [place] [address] Insurance Providers: All historical and current Section Date Range: From patient's date of to the date document was created. This section includes the names of all active insurance providers for the patient. Insurance Provider Type of Coverage Plan Name Start of Policy Coverage End of Policy Coverage Group Number Member ID Insurance Provider's Telephone Number Policy Griffin's Name Patient's Relationship to Policy Griffin [facility] (WNR) MEDICARE ADVANTAGE [facility] (WNR) Jan 03, 2021 [id number] ANNA HERRERA PATIENT Selected Encounter This section includes the information on record at [place] for the Encounter. Date/Time Encounter Type Encounter Description Reason Pro vider Source Sep 24, 2023 08:02 AM Outpatient Encounter ADMIN PAT ACTIVTIES (MASNONCT) IHE Encounter Template Text not used by [facility] Encounter Notes: All associated encounter notes This section contains the clinical notes associated to the Encounter. Date/Time Encounter Note(s) Provider Source Sep 24, 2023 08:02 AM CAREGIVER CERTIFIC ATE: LOCAL TITLE: CSP ADMINISTRATIVE NOTE STANDARD TITLE: CAREGIVER CERTIFICATE DATE OF NOTE: SEP 24, 2023@08:02 ENTRY DATE: SEP 24, 2023@08:02:16 AUTHOR: JULIANA CUNNINGHAM EXP COSIGNER: URGENCY: STATUS: COMPLETED Rubber Thread Spooler mailed and caregiver the below mentioned introductory letter: SENT REGULAR MAIL DONNY HERRERA [address] [place] [phone] September 24, 2023 Dear Sadia Herrera: Please note I, Juliana Hanson, am your newly assigned CSP PCAFC grant coordinator. Moving forward, for any of your CSP PCAFC related matters I will be your point of contact. If you have any questions and or concerns regarding the above mentioned, please feel free to contact me directly at [phone]. Sincerely, JULIANA HANSON LCSW Caregiver Supervisory Examiner [facility] cc: Anna Herrera [address] [place] [address] /charles/ JULIANA HANSON LCSW CAREGIVER SUPPORT BRIEF WRITER Signed: 09/24/2023 08:03 JULIANA CUNNINGHAM [facility]
--- OUTSIDE RECORDS SUMMARY | 2024-09-15 10:54 | XMS_ITS | Continuity of Care Document ---
Author Name [facility] Organization [facility] Care Team Providers Care Chair Caner Name Role Phone [facility] Unavailable Unavailable Problems Combined list of problems [...] Site Reaction Lot Number CVX Code Drug Chemical Handler Status Comments Source COVID-19 (MODERNA), MRNA, LNP-S, PF, 100 MCG/0.5 ML DOSE 2 2020 207 complet ed MOD; [id number]; IELD COVID-19 (MODERNA), MRNA, LNP-S, PF, 100 MCG/0.5 ML DOSE 1 2020 207 complet ed MOD; [id number]; IELD Encounters Combined list of: 1) Encounters from Department of Veterans Affairs facilities going back up to thelast 18 months. 2) Encounters from the Department of Defense facilities going back up to 280 months. Location Location Details Encounter Type Encounter Number Reason For Visit Attending Provider ADM Date DC Date Status Disposition Source [facility] ([facility]) CASE MANAGEMENT [id number] Diagnos is: ICD-10- CM Z71.0 Prsn encntr hlth serv to consult on behalf of another person< br/> Gabriele WADE 06/01 [facility] ([facility]) [facility] (6[facility]) HL BHV ASSMT/REAS SESSMENT [id number] Diagnos is: ICD-10- CM Z71.0 Prsn encntr hlth serv to consult on behalf of another person< br/> Gabriele WADE 09/14 [facility] En[facility] [id number] 09/24 [facility] HC PRO PHONE CALL 5-10 MIN [id number] Diagnos is: ICD-10- CM Z71.0 Prsn encntr hlth serv to consult on behalf of another person< br/> CUNNINGHAM,RU TH E 10/14 [facility] HC PRO PHONE CALL 5-10 MIN [id number] Diagnos is: ICD-10- CM Z71.0 Prsn encntr hlth serv to consult on behalf of another person< br/> CUNNINGHAM,RU TH E 10/22 [facility] HC PRO PHONE CALL 5-10 MIN [id number] Diagnos is: ICD-10- CM Z71.0 Prsn encntr hlth serv to consult on behalf of another person< br/> CUNNINGHAM,RU TH E 10/28 [facility] HC PRO PHONE CALL 5-10 MIN [id number] Diagnos is: ICD-10- CM Z71.0 Prsn encntr hlth serv to consult on behalf of another person< br/> CUNNINGHAM,RU TH E 10/30 [facility] HC PRO PHONE CALL 5-10 MIN [id number] Diagnos is: ICD-10- CM Z71.0 Prsn encntr hlth serv to consult on behalf of another person< br/> KEVIN CUNNINGHAM E 12/14 [place] [facility]
--- OUTSIDE RECORDS SUMMARY | 2024-09-15 10:54 | XMS_ITS | Encounter Summary ---
Author Name Department [facility] ([place]) Organization [facility] of [facility] ([place]) Address [address] [place] [address] Insurance Providers: All historical and current Section Date Range: From patient's date of to the date document was created. This section includes the names of all active insurance providers for the patient. Insurance Provider Type of Coverage Plan Name Start of Policy Coverage End of Policy Coverage Group Number Member ID Insurance Provider's Telephone Number Policy Griffin's Name Patient's Relationship to Policy Griffin [facility] (WNR) MEDICARE ADVANTAGE [facility] (WNR) Jan 03, 2021 [id number] DHIRAJ WRIGHT PATIENT Selected Encounter This section includes the information on record at [place] for the Encounter. Date/Time Encounter Type Encounter Description Reason Provider Source Oct 22, 2023 09:22 AM HC PRO PHONE CALL 5-10 MIN TELEPHONE/ANCILLAR Y ICD-10-CM Z71.0 Prsn encntr hlth serv to consult on behalf of another person JULIANA CUNNINGHAM Encounter Template Text not used by [place] Assessments - Encounter Diagnoses This section includes the primary and secondary diagnoses documented for the Encounter. Date/Time Primary/Secondary Diagnosis Diagnosis Name Provider Source Oct 22, 2023 09:22 AM PRIMARY Prsn encntr hlth serv to consult on behalf of another person JULIANA CUNNINGHAM [facility] Encounter Notes: All associated encounter notes This section contains the clinical notes associated to the Encounter. Date/Time Encounter Note(s) Provider Source Oct 22, 2023 09:22 AM CAREGIVER CERTIFIC ATE: LOCAL TITLE: CSP TELEPHONE NOTE STANDARD TITLE: CAREGIVER CERTIFICATE DATE OF NOTE: OCT 22, 2023@09:22 ENTRY DATE: OCT 22, 2023@09:23:02 AUTHOR: JULIANA CUNNINGHAM EXP COSIGNER: URGENCY: STATUS: COMPLETED Micromatic Hone Operator called 's caregiver at [phone]. 's /caregiver reports she still doesn't know if 's inpatient level of care is long term care pharmacist or short term. [employer]'s /caregiver reports its hard being able to talk do doctors regarding 's treatment plan or potential to return to the family home. [employer]'s caregiver reports there is a [place] pocket stitcher that goes to visit this in the community. Micromatic Hone Operator agreed to find out who this nurse is in order to assist with communication between this caregiver and intermediate treatment team. /hcarles/ JULIANA RAMIREZ LCSW CAREGIVER SUPPORT MICROSOFT EXCHANGE ADMINISTRATOR Signed: 10/22/2023 09:23 JULIANA CUNNINGHAM [place] [facility]
--- OUTSIDE RECORDS SUMMARY | 2024-09-15 10:54 | XMS_ITS ---
Author Name Department [facility] ([place]) Organization Department of [facility] ([place]) Address [address] [place] [address] Insurance Providers: All historical and current Section Date Range: From patient's date of to the date document was created. This section includes the names of all active insurance providers for the patient. Insurance Provider Type of Coverage Plan Name Start of Policy Coverage End of Policy Coverage Group Number Member ID Insurance Provider's Telephone Number Policy Griffin's Name Patient's Relationship to Policy Griffin [facility] (WNR) MEDICARE ADVANTAGE [facility] (WNR) Jan 03, 2021 [id number] DHIRAJ HERRERA PATIENT Selected Encounter This section includes the information on record at [place] for the Encounter. Date/Time Encounter Type Encounter Description Reason Provider Source Dec 15, 2023 08:45 AM HC PRO PHONE CALL 5-10 MIN TELEPHONE/ANCILLAR Y ICD-10-CM Z71.0 Prsn encntr hlth serv to consult on behalf of another person JULIANA CUNNINGHAM Encounter Template Text not used by [place] Assessments - Encounter Diagnoses This section includes the primary and secondary diagnoses documented for the Encounter. Date/Time Primary/Secondary Diagnosis Diagnosis Name Provider Source Dec 15, 2023 08:45 AM PRIMARY Prsn encntr hlth serv to consult on behalf of another person JULIANA CUNNINGHAM [facility] Encounter Notes: All associated encounter notes This section contains the clinical notes associated to the Encounter. Date/Time Encounter Note(s) Provider Source Dec 15, 2023 08:45 AM CAREGIVER CERTIFIC ATE: LOCAL TITLE: CSP DISCHARGE OR REVOCATION NOTE STANDARD TITLE: CAREGIVER CERTIFICATE DATE OF NOTE: DEC 15, 2023@08:45 ENTRY DATE: DEC 15, 2023@09:14:15 AUTHOR: JULIANA CUNNINGHAM EXP COSIGNER: URGENCY: STATUS: COMPLETED Caregiver Support Program Discharge/Revocation Note Discharge/Revocation Date 3/9/24 Discharged or Revoked from the Program of Comprehensive Assistance for Family Caregivers The person being discharged or revoked is the Primary Family Caregiver. Name of [place]: Lenin Herrera The reason for discharge is the [place] is . Date of verbal notification/attempt of determination: 12/15/23 Date determination letter was mailed: 12/15/23 The following information was provided: * Local [facility] Contact Information * Program of General Caregiver Support Services * [place] form 10-305 Your Right to Seek Further Review of PCAFC * Changes to Review and Appeal Options for PCAFC Decisions FAQs Doughmaker called 's caregiver at [phone]. Doughmaker reached caregiver. Doughmaker gave 's /caregiver her condolences for 's passing on 12/12/23. Doughmaker noted 's discharge from the program, publications writer will be mailing her information/resources that can be of assistance, and asked that she contact publications writer with any further questions and or concerns. Caregiver agreed to do so and thanked publications writer for this call. SENT REGULAR MAIL DHIRAJ HERRERA [address] [place] [id number] December 15, 2023 Dear Mrs. Herrera: Thank you for your interest in the Program of Comprehensive Assistance for Family Caregivers (PCAFC). We at the [place] are deeply saddened to hear of your loss and would like to thank you for the dedicated care you provided. We are writing to express our sincere condolences, and to let you know we are thinking of you during this challenging time. PCAFC benefits are tied to the in-home care that you as a Family Caregiver have provided to Mr. Lenin Herrera. Your caregiver benefits will continue for 90 days from 12/12/2023. Mrs. Herrera, the Caregiver Stipend Team (CERTIFICATION OFFICER) will send you a detailed letter regarding the end of your PCAFC benefits. Although you will no longer receive benefits under PCAFC, you may qualify for other VA benefits, such as dependency compensation, burial allowance, and bereavement counseling. I will email you information about burial allowance and spousal benefits. We encourage you to consider the following local resources. [facility] Building Performance Specialist Services [phone] ext [phone] [employer] Grief and Support ? [email or web address] [email or web address].org/grief- support/index.cfm [facility] ? [facility] [address] [place] [address] Kassie Bean, Bereavement Counselor w# [phone] c# Please contact us if you have any questions or if there is anything we can do to support you. On behalf of a grateful nation and the Caregiver Support Program, thank you for your dedication to Mr. Lenin Polancocarmennancy. Sincerely, JULIANA RAMIREZ LCSW Caregiver Boiler Technician [facility] Enclosures: * Local [facility] Contact Information * Program of General Caregiver Support Services * [place] form 10-305 Your Right to Seek Further Review of PCAFC * Changes to Review and Appeal Options for PCAFC Decisions FAQs /charles/ JULIANA RAMIREZ LCSW CAREGIVER SUPPORT CAR CARDER Signed: 12/15/2023 09:16 JULIANA CUNNINGHAM [place] [facility]
--- OUTSIDE RECORDS SUMMARY | 2024-09-15 10:54 | XMS_ITS | Encounter Summary ---
Author Name Department [facility] ([place]) Organization Department of [facility] ([place]) Address [address] [place] [address] Insurance Providers: All historical and current Section Date Range: From patient's date of to the date document was created. This section includes the names of all active insurance providers for the patient. Insurance Provider Type of Coverage Plan Name Start of Policy Coverage End of Policy Coverage Group Number Member ID Insurance Provider's Telephone Number Policy Griffin's Name Patient's Relationship to Policy Griffin [facility] (WNR) MEDICARE ADVANTAGE [facility] (WNR) Jan 03, 2021 [id number] DHIRAJ WRIGHT PATIENT Selected Encounter This section includes the information on record at [place] for the Encounter. Date/Time Encounter Type Encounter Description Reason Provider Source Oct 28, 2023 01:40 PM HC PRO PHONE CALL 5-10 MIN TELEPHONE/ANCILLAR Y ICD-10-CM Z71.0 Prsn encntr hlth serv to consult on behalf of another person JULIANA CUNNINGHAM Encounter Template Text not used by [place] Assessments - Encounter Diagnoses This section includes the primary and secondary diagnoses documented for the Encounter. Date/Time Primary/Secondary Diagnosis Diagnosis Name Provider Source Oct 28, 2023 01:40 PM PRIMARY Prsn encntr hlth serv to consult on behalf of another person JULIANA CUNNINGHAM [facility] Encounter Notes: All associated encounter notes This section contains the clinical notes associated to the Encounter. Date/Time Encounter Note(s) Provider Source Oct 28, 2023 01:40 PM CAREGIVER CERTIFIC ATE: LOCAL TITLE: CSP TELEPHONE NOTE STANDARD TITLE: CAREGIVER CERTIFICATE DATE OF NOTE: OCT 28, 2023@13:40 ENTRY DATE: OCT 28, 2023@15:45:07 AUTHOR: JULIANA CUNNINGHAM EXP COSIGNER: URGENCY: STATUS: COMPLETED Sports Journalist called 's caregiver at [phone]. Sports Journalist reached caregiver who confirmed having spoken to hospital staff. 's caregiver/ reviewed she dislikes the shelter's administration of pain medication. 's /caregiver reports she has reviewed this with hospital staff who find 's discomfort primarily is from sx of sundowning however she disagrees. Sports Journalist and caregiver discussed 's plan to remain in shelter or return to the family home. [employer]'s caregiver reports she is not able to lift herself. Sports Journalist offered NUCLEAR MEDICINE CHIEF TECHNOLOGIST services for assistance whilst still being under hospice. [place]'s caregiver reports she is elderly herself and is uncertain if she can manage with if NUCLEAR MEDICINE CHIEF TECHNOLOGIST is not present. From this conversation, it is advertising copy writer's understanding will remain on inpatient hospice content curator care. [employer]'s caregiver agreed to obtain and fax advertising copy writer a letter from the detention facility confirming 's permanent hospice shelter placement status. /charles/ JULIANA RAMIREZ LCSW CAREGIVER SUPPORT PUBLIC HEALTH PHYSICIAN Signed: 10/28/2023 15:45 JULIANA CUNNINGHAM [place] [facility]
--- OUTSIDE RECORDS SUMMARY | 2024-09-15 10:55 | XMS_ITS | Patient Health Record ---
[facility] Organization [facility] Address [address] [place] [address] Care Team Providers Care Engineering Inspection Assistant Name Role Phone Milton SHERMAN, Glen Primary Care Provider Unavailab Bull [place] Unavailable [phone] Allergies Allergen (clinical drug ingredient) Drug/Non Drug Allergy documented on EMR Reaction Allergy Type Onset Date Status hydroxyzine Hydroxyzine Unknown Drug Allergy Act paco lisinopril Lisinopril Unknown Drug Allergy Activ e metformin Metformin Unknown Drug Allergy Active Substance with 1-qgxiphz-7-methylgluta ryl-coenzyme A reductase inhibitor mechanism of action (substance) Statins Unknown Drug Allergy Active Reason For Referral No Information Medications Medication SIG (Take, Route, Frequency, Duration) Notes Start Date End Date Status Losartan Potassium 50 MG 1 tablet Orally Once a day for 30 day(s) Active Glimepiride 4 MG 1 tablet with breakf ast or the first main meal of the day Orally Once a day for 30 day(s) Active Extra Depth Orthopedic Shoes (1 Pair) with Customized Heat Molded Multidensity Innersoles (3 Pair) as directed Dx: NIDDM/Polyneuropathy (E11.42), Hammertoe Foot Deformity (M20.41,M20.42), Preulcerative Skin Lesion(s) (L85.1 01/22/2021 Active Clopidogrel Bisulfate 75 MG 1 tablet Orally Once a day for 30 day(s) Active amLODIPine Besylate 10 MG 1 tablet Orall y Once a day for 30 day(s) Active Aspirin 81 81 MG 1 tablet Orally Once a day for 30 day(s) Active Immunizations Vaccine Route Administration Date Status Comme nts Influenza Unknown 01/22/2021 Refused Social History Tobacco Use: Social History Observation Description Date Details (start date - stop date) Former Smoker NA - NA Tobacco Use/Smoking Question Answer Notes Are you a: former smoker Additional Findings: Tobacco Non-User Current no n-smoker Alcohol Screen Question Answer Notes Did you have a drink containing alcohol in the p ast year? No Points 0 Interpretation Negative Tobacco use other than smoking: Question Answer Notes Are you an other tobacco user? No Problems Problem Type SNOMED Code ICD Code Onset Dates Problem Status W/U Status Risk Notes Problem Acquired hammer toe of right foot (1726210810719137 ) Other hammer toe(s) (acquired), right foot (M20.41) Active confirmed Problem Acquired hammer toe of left foot (2533122062801442 ) Other hammer toe(s) (acquired), left foot (M20.42) Active confirmed Problem Polyneuropathy due to type 2 diabetes mellitus (215246378) Type 2 diabetes mellitus with diabetic polyneuropathy (E11.42) Active confirmed Plan Of Treatment No Information Insurance Providers Payer Name Payer Address Payer Phone Subscriber Number Group Number Insured Name Patient Relationship to Insured Coverage Start Date Coverage End Date [employer] [id number] [address] [address] [place] [address] [id number] Anna Herrera Self - patient is the insured Medical (General) History Medical History History ICD Code Diabetic High blood pressure Numbness Surgical History Surgery Date(Month/Year) stents 01/03/2018 appendectomy 1968
[2024-09-15] MEDS: iohexoL 350 MG/ML 100 ML INFUS..BTL IV (11:39)
== END 2024-09-15 10:52 | disposition home or self-care (01) ==
LOC: HO.CT 10:51
PROVIDERS: PCP Family Medicine; Visit Provider Surgery Vascular Surgery
DX: I73.9 Peripheral vascular disease, unspecified (principal)
CPT/HCPCS: 75635; Q9967

== ENCOUNTER 2024-10-06 11:07 | Outpatient (AMB) | payer MEDICARE, SELFPAY ==
--- NOTE | 2024-10-06 11:11 | MHC.OFFVIS ---
Intake Visit Reasons: follow up CTA runoff 09/15/24 Intake Note: Patient presents for CTA with runoff. No complaints. Accompanied by: Self / Same As Patient Allergies metformin Allergy (Unknown, Verified 10/06/24 11:12) gi barium sulfate [From Eneset 2] Adverse Reaction (Mild, Verified 10/06/24 11:12) Stomach Upset carvedilol Adverse Reaction (Mild, Verified 10/06/24 11:12) Stomach Upset hydroxyzine Adverse Reaction (Mild, Verified 10/06/24 11:12) Stomach Upset metoprolol Adverse Reaction (Mild, Verified 10/06/24 11:12) Cough lisinopril Adverse Reaction (Unknown, Verified 10/06/24 11:12) cough Statins Support Allergy (Unknown, Uncoded 07/19/24 14:11) mx HPI HPI follow up CTA runoff 09/15/24: Details: Very pleasant 84-year-old female presents for routine arterial surveillance. She continues to have lower extremity pain. She can ambulate about 200 ft before she reports any significant cramping. She does have occasional lower back pain along with stiffening of the joints. She now presents for routine surveillance follow-up. She does report that over the past week she does feel somewhat better and the cramping and pain have improved. [facility] Medical History Exertional angina Hyperlipidemia HTN (hypertension) PVD (peripheral vascular disease) Diabetes mellitus CAD (coronary artery disease) Surgical History Hx of appendectomy Stented coronary artery Social History Household Members: Children Housing: House Alcohol intake: never Patient Tobacco Use Status: Former Tobacco user Review of Systems Const All systems reviewed & are unremarkable except as noted in HPI and below Reports no additional complaints ENT Reports Normal hearing present Card Denies chest pain, Denies chest pain at rest, Denies chest pain with activity and Denies pedal edema Resp Denies cough GI Denies abdominal pain Musc Denies abnormal gait, Denies muscle cramps and Denies radiating pain into limb Skin/Breast Denies skin ulcer and Denies wounds Neuro Reports Normal hearing present and Denies abnormal gait Psych Reports no additional complaints Physical Exam Const General: cooperative, healthy appearing and comfortable Orientation/consciousness: oriented to person, oriented to place and oriented to time HEENT Head: Yes normal to inspection Neck Neck: Yes normal visual inspection Carotids: no bruits Chest Chest palpation & inspection: normal inspection of the chest Resp Effort & Inspection: normal respiratory effort and able to speak in complete sentences Auscultation: clear to auscultation bilaterally, no crackles, no rales, no rhonchi and no wheezes Cardio Other: Bilateral DP signals Rate: regular rate Rhythm: regular rhythm Heart sounds: S1 normal heart sound present and S2 normal heart sound present Bruits: no carotid bruits Peripheral pulses: Peripheral pulses 2+ throughout GI Inspection: Yes normal to inspection Skin Wounds: no wounds Hair: normal Neuro General: oriented to person, oriented to place and oriented to time Cranial nerves: Yes CN's II-XII intact bilaterally and Yes Normal hearing present Cognition (Neuro): normal cognition Motor exam (neuro): 5/5 motor strength present throughout Extrem Other: venous exam: No significant superficial varicosities or spider telangiectasias, minimal edema General: No clubbing, No cyanosis and No edema Psych Appearance: grossly normal Mental Status: mental status grossly normal Speech and movement: Normal speech and movement present Results Reviewed Results Reviewed: CT angiogram dated 09/15/2024 demonstrates patent bilateral iliac stents. Left lower extremity plaque in the common femoral and external iliac. Assessment & Plan Assessment & Plan (1) PVD (peripheral vascular disease): Comment: 03/02/2024 - bilateral iliac stents Code(s): I73.9 - Peripheral vascular disease, unspecified Category: Medical Plan: In short patient does have an element of peripheral vascular disease. At the current time we have discussed the findings and she has elected to manage this conservatively. We will see how she does over the next 6 months. I have scheduled her for surveillance ultrasound in 6 months. Should there be any interval issues happy to see her back sooner and plan for intervention at that point. Thank you for allowing us to assist in her care. If there are any questions or concerns please do not hesitate to contact us. Orders: Orders US arterial duplex LE BI 6 Months I73.9 - Peripheral vascular disease, unspecified Coding Level of Care Code Est Pt Level 4 (84959) Diagnoses PVD (peripheral vascular disease) I73.9
--- OUTSIDE RECORDS SUMMARY | 2024-10-06 12:03 | XMS_ITS | Encounter Summary ---
Author Name Department [facility] ([place]) Organization Department of [facility] ([place]) Address [address] [place] [address] Insurance Providers: All historical and current Section Date Range: From patient's date of to the date document was created. This section includes the names of all active insurance providers for the patient. Insurance Provider Type of Coverage Plan Name Start of Policy Coverage End of Policy Coverage Group Number Member ID Insurance Provider's Telephone Number Policy Griffin's Name Patient's Relationship to Policy Griffin [facility] (WNR) MEDICARE ADVANTAGE [facility] (WNR) Jan 03, 2021 [id number] DHIRAJ WRIGHT PATIENT Selected Encounter This section includes the information on record at [place] for the Encounter. Date/Time Encounter Type Encounter Description Reason Provider Source Oct 30, 2023 09:46 AM HC PRO PHONE CALL 5-10 MIN TELEPHONE/ANCILLAR Y ICD-10-CM Z71.0 Prsn encntr hlth serv to consult on behalf of another person JULIANA CUNNINGHAM Encounter Template Text not used by [place] Assessments - Encounter Diagnoses This section includes the primary and secondary diagnoses documented for the Encounter. Date/Time Primary/Secondary Diagnosis Diagnosis Name Provider Source Oct 30, 2023 09:46 AM PRIMARY Prsn encntr hlth serv to consult on behalf of another person JULIANA CUNNINGHAM [facility] Encounter Notes: All associated encounter notes This section contains the clinical notes associated to the Encounter. Date/Time Encounter Note(s) Provider Source Oct 30, 2023 09:46 AM CAREGIVER CERTIFIC ATE: LOCAL TITLE: CSP TELEPHONE NOTE STANDARD TITLE: CAREGIVER CERTIFICATE DATE OF NOTE: OCT 30, 2023@09:46 ENTRY DATE: OCT 30, 2023@09:46:16 AUTHOR: JULIANA CUNNINGHAM EXP COSIGNER: URGENCY: STATUS: COMPLETED [facility] TELEPHONE NOTE Has ADDENDA Agency Manager called 's caregiver at [phone]. Agency Manager reviewed previous conversation where caregiver did not [...] and may return to the family home, insurance underwriter and caregiver agreed this and caregiver's CSP PCAFC case will remain open until further notice. Agency Manager and caregiver scheduled a CSP PCAFC Wellness Assessment on Thursday11/03/23 at 10:30am. Caregiver and are due for an annual CSP PCAFC reassessment however this has to be initiated close to discharge if not upon return to the family home. Caregiver agreed to maintain close contact with insurance underwriter regarding 's discharge to the family home. Caregiver confirmed when she met with the hospice nurse yesterday they spoke about her concerns with 's psychosis in relation to his medications. 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 Caregiver states that 's hospice nurse added medications to address 's psychosis. Caregiver is aware that she can contact insurance underwriter with any further questions and concerns. /laz RAMIREZ LCSW CAREGIVER SUPPORT CONSUMER LOAN MANAGER Signed: 10/30/2023 09:46 10/30/2023 ADDENDUM STATUS: COMPLETED Agency Manager called 's caregiver at [phone]. Agency Manager confirmed had completed a Wellness Assessment on 09/14/23 therefore the next Wellness Assessment will not be due until 01/14/24. Agency Manager cancelled the previously scheduled Wellness Asessment on 11/03/23. Caregiver thanked insurance underwriter for the notification. /laz RAMIREZ LCSW CAREGIVER SUPPORT CONSUMER LOAN MANAGER Signed: 10/30/2023 11:23 JULIANA [facility]INGHAM [place] [facility]
--- OUTSIDE RECORDS SUMMARY | 2024-10-06 12:03 | XMS_ITS ---
Author Name Department [facility] ([place]) Organization Department of [facility] ([place]) Address [address] [place] [address] Insurance Providers: All historical and current Section Date Range: From patient's date of to the date document was created. This section includes the names of all active insurance providers for the patient. Insurance Provider Type of Coverage Plan Name Start of Policy Coverage End of Policy Coverage Group Number Member ID Insurance Provider's Telephone Number Policy Griffin's Name Patient's Relationship to Policy Griffin [facility] (WNR) MEDICARE ADVANTAGE [facility] (WNR) Jan 03, 2021 [id number] DHIRAJ HERRERA PATIENT Selected Encounter This section includes the information on record at [place] for the Encounter. Date/Time Encounter Type Encounter Description Reason Provider Source Dec 15, 2023 08:45 AM HC PRO PHONE CALL 5-10 MIN TELEPHONE/ANCILLAR Y ICD-10-CM Z71.0 Prsn encntr hlth serv to consult on behalf of another person JULIANA CUNNINGHAM Encounter Template Text not used by [place] Assessments - Encounter Diagnoses This section includes the primary and secondary diagnoses documented for the Encounter. Date/Time Primary/Secondary Diagnosis Diagnosis Name Provider Source Dec 15, 2023 08:45 AM PRIMARY Prsn encntr hlth serv to consult on behalf of another person JULIANA CUNNINGHAM [facility] Encounter Notes: All associated encounter notes [...] is the Primary Family Caregiver. Name of : Lenin Herrera The reason for discharge is the [place] is . Date of verbal notification/attempt of determination: 12/15/23 Date determination letter was mailed: 12/15/23 The following information was provided: * Local [facility] Contact Information * Program of General Caregiver Support Services * [place] form 10-305 Your Right to Seek Further Review of PCAFC * Changes to Review and Appeal Options for PCAFC Decisions FAQs Machine Steak Tenderizer called 's caregiver at [phone]. Machine Steak Tenderizer reached caregiver. Machine Steak Tenderizer gave 's /caregiver her condolences for 's passing on 12/12/23. Machine Steak Tenderizer noted 's discharge from the program, service writer will be mailing her information/resources that can be of assistance, and asked that she contact service writer with any further questions and or concerns. Caregiver agreed to do so and thanked service writer for this call. SENT REGULAR MAIL DHIRAJ HERRERA [address] [place] [id number] December 15, 2023 Dear Mrs. Herrera: Thank you for your interest in the Program of Comprehensive Assistance for Family Caregivers (PCAFC). We at the [place] are deeply saddened to hear of your [...] 12/12/2023. Mrs. Herrera, the Caregiver Stipend Team (VISION MIXER) will send you a detailed letter regarding the end of your PCAFC benefits. Although you will no longer receive benefits under PCAFC, you may qualify for other VA benefits, such as dependency compensation, burial allowance, and bereavement counseling. I will email you information about burial allowance and spousal benefits. We encourage you to consider the following local resources. [facility] Custodial Supervisor Services [phone] ext [phone] [employer] Grief and Support ? [email or web address]- [email or web address] [facility] ? [facility] [address] [place] [address] Kassie Bean, Bereavement Counselor w# [phone] c# [phone] Please contact us if you have any questions or if there is anything we can do to support you. On behalf of a grateful nation and the Caregiver Support Program, thank you for your dedication to Mr. Lenin Polancocarmennancy. Sincerely, JULIANA RAMIREZ LCSW Caregiver Turret Lathe Machinist [facility] Enclosures: * Local [facility] Contact Information * Program of General Caregiver Support Services * [place] form [phone] Your Right to Seek Further Review of PCAFC * Changes to Review and Appeal Options for PCAFC Decisions FAQs /charles/ JULIANA RAMIREZ LCSW CAREGIVER SUPPORT MARINE ENGINEERING TEACHER Signed: 12/15/2023 09:16 JULIANA [place]NINGHAM [place] [facility]
--- OUTSIDE RECORDS SUMMARY | 2024-10-06 12:03 | XMS_ITS | Encounter Summary ---
Author Name Department [facility] ([place]) Organization Department of [facility] ([place]) Address [address] [place] [address] Insurance Providers: All historical and current Section Date Range: From patient's date of to the date document was created. This section includes the names of all active insurance providers for the patient. Insurance Provider Type of Coverage Plan Name Start of Policy Coverage End of Policy Coverage Group Number Member ID Insurance Provider's Telephone Number Policy Griffin's Name Patient's Relationship to Policy Griffin [facility] (WNR) MEDICARE ADVANTAGE [facility] (WNR) Jan 03, 2021 [id number] DHIRAJ WRIGHT PATIENT Selected Encounter This section includes the information on record at [place] for the Encounter. Date/Time Encounter Type Encounter Description Reason Provider Source Oct 14, 2023 03:26 PM HC PRO PHONE CALL 5-10 MIN TELEPHONE/ANCILLAR Y ICD-10-CM Z71.0 Prsn encntr hlth serv to consult on behalf of another person JULIANA CUNNINGHAM Encounter Template Text not used by [place] Assessments - Encounter Diagnoses This section includes the primary and secondary diagnoses documented for the Encounter. Date/Time Primary/Secondary Diagnosis Diagnosis Name Provider Source Oct 14, 2023 03:26 PM PRIMARY Prsn encntr hlth serv to consult on behalf of another person JULIANA CUNNINGHAM [facility] Encounter Notes: All associated encounter notes This section contains the clinical notes associated to the Encounter. Date/Time Encounter Note(s) Provider Source Oct 14, 2023 03:26 PM CAREGIVER CERTIFIC ATE: LOCAL TITLE: CSP TELEPHONE NOTE STANDARD TITLE: CAREGIVER CERTIFICATE DATE OF NOTE: OCT 14, 2023@15:26 ENTRY DATE: OCT 14, 2023@15:26:45 AUTHOR: JULIANA CUNNINGHAM EXP COSIGNER: URGENCY: STATUS: COMPLETED Brass Chaser called 's caregiver at [phone]. Brass Chaser reached caregiver. Brass Chaser introduced herself as her and 's recently assigned [facility] Whip Operator. Brass Chaser confirmed was hospitalized at [facility] on 09/28/24 and transferred to [facility] on 10/07/23. Brass Chaser asked for the plan with this placement. Caregiver reports she does not know. Caregiver reports is under hospice level of care but a previous community care provider told her he has a 6 month life expectancy therefore she still has hope that he can return to their family home. Brass Chaser asked that caregiver contact documentation writer to inform her if this admission turns into a emt intermediate placement, in the event is discharged home, or if expires. Brass Chaser also asked that she contact documentation writer with any further questions and or concerns. Caregiver agreed to do so and thanked documentation writer for her call. /charles/ JULIANA RAMIREZ LCSW CAREGIVER SUPPORT CLAIMS ADJUSTER CROP Signed: 10/15/2023 10:08 JULIANA CUNNINGHAM [facility]
--- OUTSIDE RECORDS SUMMARY | 2024-10-06 12:03 | XMS_ITS | Encounter Summary ---
Author Name Department [facility] ([place]) Organization [facility] ([place]) Address [address] [place] [address] Insurance Providers: All historical and current Section Date Range: From patient's date of to the date document was created. This section includes the names of all active insurance providers for the patient. Insurance Provider Type of Coverage Plan Name Start of Policy Coverage End of Policy Coverage Group Number Member ID Insurance Provider's Telephone Number Policy Griffin's Name Patient's Relationship to Policy Griffin [facility] (WNR) MEDICARE ADVANTAGE [facility] (WNR) Jan 03, 2021 [id number] DHIRAJ WRIGHT PATIENT Selected Encounter This [...] behalf of another person JULIANA CUNNINGHAM [facility] Encounter Notes: All associated encounter notes This section contains the clinical notes associated to the Encounter. Date/Time Encounter Note(s) Provider Source Oct 22, 2023 09:22 AM CAREGIVER CERTIFIC ATE: LOCAL TITLE: CSP TELEPHONE NOTE STANDARD TITLE: CAREGIVER CERTIFICATE DATE OF NOTE: OCT 22, 2023@09:22 ENTRY DATE: OCT 22, 2023@09:23:02 AUTHOR: JULIANA CUNNINGHAM EXP COSIGNER: URGENCY: STATUS: COMPLETED Video Systems Engineer called 's caregiver at [phone]. [place]'s /caregiver reports she still doesn't know if 's inpatient level of care is watermelon inspector or short term. [place]'s /caregiver reports its hard being able to talk do doctors regarding 's treatment plan or potential to return to the family home. 's caregiver reports there is a [place] proofing machine operator that goes to visit this in the community. Video Systems Engineer agreed to find out who this nurse is in order to assist with communication between this caregiver and longterm treatment team. /charles/ JULIANA RAMIREZ LCSW CAREGIVER SUPPORT SUBSTANCE ABUSE TECHNICIAN Signed: 10/22/2023 09:23 JULIANA CUNNINGHAM [place] [facility]
--- OUTSIDE RECORDS SUMMARY | 2024-10-06 12:03 | XMS_ITS | Encounter Summary ---
Author Name Department [facility] ([place]) Organization Department of [facility] ([place]) Address [address] [place] [address] Insurance Providers: All historical and current Section Date Range: From patient's date of to the date document was created. This section includes the names of all active insurance providers for the patient. Insurance Provider Type of Coverage Plan Name Start of Policy Coverage End of Policy Coverage Group Number Member ID Insurance Provider's Telephone Number Policy Griffin's Name Patient's Relationship to Policy Griffin [facility] (WNR) MEDICARE ADVANTAGE [facility] (WNR) Jan 03, 2021 [id number] DHIRAJ WRIGHT PATIENT Selected Encounter This section includes the information on record at [place] for the Encounter. Date/Time Encounter Type Encounter Description Reason Provider Source Oct 28, 2023 01:40 PM HC PRO PHONE CALL 5-10 MIN TELEPHONE/ANCILLAR Y ICD-10-CM Z71.0 Prsn encntr hlth serv to consult on behalf of another person JULIAAN CUNNINGHAM Encounter Template Text not used by [place] Assessments - Encounter Diagnoses This section includes the primary and secondary diagnoses documented for the Encounter. Date/Time Primary/Secondary Diagnosis Diagnosis Name Provider Source Oct 28, 2023 01:40 PM PRIMARY Prsn encntr hlth serv to consult on behalf of another person JULIANA CUNNINGHAM [facility] Encounter Notes: All associated encounter notes This section contains the clinical notes associated to the Encounter. Date/Time Encounter Note(s) Provider Source Oct 28, 2023 01:40 PM CAREGIVER CERTIFIC ATE: LOCAL TITLE: CSP TELEPHONE NOTE STANDARD TITLE: CAREGIVER CERTIFICATE DATE OF NOTE: OCT 28, 2023@13:40 ENTRY DATE: OCT 28, 2023@15:45:07 AUTHOR: JULIANA CUNNINGHAM EXP COSIGNER: URGENCY: STATUS: COMPLETED Refuse Laborer called 's caregiver at [phone]. Refuse Laborer reached caregiver who confirmed having spoken to hospital staff. Delta's caregiver/ reviewed she dislikes the fdc's administration of pain medication. Delta's /caregiver reports she has reviewed this with hospital staff who find 's discomfort primarily is from sx of sundowning however she disagrees. Refuse Laborer and caregiver discussed 's plan to remain in fdc or return to the family home. Delta's caregiver reports she is not able to lift herself. Refuse Laborer offered FREIGHT ADJUSTER services for assistance whilst still being under hospice. Delta's caregiver reports she is elderly herself and is uncertain if she can manage with if FREIGHT ADJUSTER is not present. From this conversation, it is conventional underwriter's understanding will remain on inpatient hospice care home care. 's caregiver agreed to obtain and fax conventional underwriter a letter from the residential facility confirming 's permanent hospice fdc placement status. /charles/ JULIANA RAMIREZ LCSW CAREGIVER SUPPORT NEUROPSYCHIATRIC AIDE Signed: 10/28/2023 15:45 JULIANA CUNNINGHAM [place] [facility]
--- OUTSIDE RECORDS SUMMARY | 2024-10-06 12:03 | XMS_ITS | Continuity of Care Document ---
Author Name [facility] Organization [facility] Care Team Providers Care Life Skills Coordinator Volunteer Name Role Phone [facility] Unavailable Unavailable Problems Combined list of problems from Department of Defense and Veterans Affairs facilities. It does not include entries that were removed or entered in error. Problem Status Onset Date Problem Type Date of Resolution Comments Source Diagnosis: ICD-10-CM Z71.0 Prsn encntr hlth serv to consult on behalf of another person Active Diagnosis [place] [facility] Immunizations Combined list of available immunizations from the Department of Defense and Veterans Affairs facilities. Immunization Series Date Given Administered By Site Reaction Lot Number CVX Code Drug Drill Press Operator Numerical Control Status Comments Source COVID-19 (MODERNA), MRNA, LNP-S, PF, 100 MCG/0.5 ML DOSE 2 2020 207 complet ed MOD; [id number]; IELD COVID-19 (MODERNA), MRNA, LNP-S, PF, 100 MCG/0.5 ML DOSE 1 2020 207 complet ed MOD; [id number]; IELD Encounters Combined list of: 1) Encounters from Department of Veterans Affairs facilities going back up to thelast 18 months. 2) Encounters from the Department of Defense facilities going back up to 280 months. Location Location Details Encounter Type Encounter Number Reason For Visit Attending Provider ADM Date DC Date Status Disposition Source [facility] ([facility]) CASE MANAGEMENT [id number] Diagnos is: ICD-10- CM Z71.0 Prsn encntr hlth serv to consult on behalf of another person< br/> Gabriele WADE 06/01 [facility] ([facility]) [facility] ([facility]) [facility] ASSMT/REAS SESSMENT [id number] Diagnos is: ICD-10- CM Z71.0 Prsn encntr hlth serv to consult on behalf of another person< br/> Gabriele WADE 09/14 [facility] [place] Outpatient Encounter [id number] 09/24 [facility] HC PRO PHONE CALL 5-10 MIN [id number] Diagnos is: ICD-10- CM Z71.0 Prsn encntr hlth serv to consult on behalf of another person< br/> CUNNINGHAM,RU TH E 10/14 [facility] HC PRO PHONE CALL 5-10 MIN [id number] Diagnos is: ICD-10- CM Z71.0 Prsn encntr hlth serv to consult on behalf of another person< br/> CUNNINGHAM,RU TH E 10/22 [facility] HC PRO PHONE CALL 5-10 MIN [id number] Diagnos is: ICD-10- CM Z71.0 Prsn encntr hlth serv to consult on behalf of another person< br/> CUNNINGHAM,RU TH E 10/28 [facility] HC PRO PHONE CALL 5-10 MIN [id number] Diagnos is: ICD-10- CM Z71.0 Prsn encntr hlth serv to consult on behalf of another person< br/> CUNNINGHAM,RU TH E 10/30 [facility] HC PRO PHONE CALL 5-10 MIN [id number] Diagnos is: ICD-10- CM Z71.0 Prsn encntr hlth serv to consult on behalf of another person< br/> KEVIN CUNNINGHAM E 12/14 [facility]
--- OUTSIDE RECORDS SUMMARY | 2024-10-06 12:04 | XMS_ITS | Patient Health Record ---
Author Organization [facility] Address [address] [place] [address] Care Team Providers Care Sulfonation Equipment Operator Name Role Phone Milton SHERMAN, [place] Primary Care Provider Unavailab Bull [place] Unavailable [phone] Allergies Allergen (clinical drug ingredient) Drug/Non Drug Allergy documented on EMR Reaction Allergy Type Onset Date Status hydroxyzine Hydroxyzine Unknown Drug Allergy Act paco lisinopril Lisinopril Unknown Drug Allergy Activ e metformin Metformin Unknown Drug Allergy Active Substance with 1-wuzxcnq-4-methylgluta ryl-coenzyme A reductase inhibitor mechanism of action [...] Problem Acquired hammer toe of right foot (8092215583463433 ) Other hammer toe(s) (acquired), right foot (M20.41) Active confirmed Problem Acquired hammer toe of left foot (4206764538000771 ) Other hammer toe(s) (acquired), left foot (M20.42) Active confirmed Problem Polyneuropathy due to type 2 diabetes mellitus (040132410) Type 2 diabetes mellitus with diabetic polyneuropathy (E11.42) Active confirmed Plan Of Treatment No Information Insurance Providers Payer Name Payer Address Payer Phone Subscriber Number Group Number Insured Name Patient Relationship to Insured Coverage Start Date Coverage End Date [employer] Medicare [id number] [address] [address] [place] [address] [id number] Anna Herrera Self - patient is the insured Medical (General) History Medical History History ICD Code Diabetic High blood pressure Numbness Surgical History Surgery Date(Month/Year) stents 01/03/2018 appendectomy 1968
== END 2024-10-06 11:31 | disposition home or self-care (01) ==
PROVIDERS: PCP Family Medicine; Visit Provider Surgery Vascular Surgery
DX: I73.9 Peripheral vascular disease, unspecified (principal)
CPT/HCPCS: 99214

== ENCOUNTER → 2024-10-06 11:07 | Outpatient (BNVA) | payer MEDICARE, SELFPAY | PROVIDERS: PCP Family Medicine; Visit Provider Surgery Vascular Surgery | DX: I73.9 Peripheral vascular disease, unspecified (principal) | CPT/HCPCS: 99212 ==

== ENCOUNTER 2024-11-28 11:10 | Outpatient (AMB) | payer MEDICARE, SELFPAY ==
--- NOTE | 2024-11-28 11:13 | A.SPINEOV_ITS ---
Vital Signs 11/28/24 11:23 Height 5 ft 7 in Weight 165 lb BMI 25.8 Intake Visit Reasons: LBP/ Urgent referral Intake Note: Ms. Anderson is here today c/o low back pain. On Awake Counselor Required: No Allergies metformin Allergy (Unknown, Verified 11/28/24 11:24) gi barium sulfate [From Eneset 2] Adverse Reaction (Mild, Verified 10/06/24 11:12) Stomach Upset carvedilol Adverse Reaction (Mild, Verified 10/06/24 11:12) Stomach Upset hydroxyzine Adverse Reaction (Mild, Verified 10/06/24 11:12) Stomach Upset metoprolol Adverse Reaction (Mild, Verified 11/28/24 11:24) Cough lisinopril Adverse Reaction (Unknown, Verified 11/28/24 11:24) cough Statins Support Allergy (Unknown, Uncoded 07/19/24 14:11) mx Physical Exam Vital Signs: BMI result Body Mass Index 25.8 Assessment & Plan Assessment & Plan (1) Lumbar disc herniation: Code(s): M51.26 - Other intervertebral disc displacement, lumbar region Category: Medical Plan Dear dr Rose, Thank you for referring Mrs Anderson to our office today. She is a very nice 84-year-old female presents to the office today for evaluation of right-sided leg pain that started on October 08. She was reaching down for her slippers when she felt something in her low back and then it transitioned into a leg radiculopathy down into her buttock, posterior hamstring with numbness in her distal leg. It has been getting slowly better since that time but an MRI done in November showed a small herniated disc on the right at L5-S1, tucking slightly into the foramen. She was sent today for an evaluation. She currently tells me that things are on the mend and that she is feeling better in terms of the pain. It is still uncomfortable sleeping and turning over in bed but she is able to stand for longer periods and go up and downstairs now without much difficulty. She is just taking Tylenol. She is here today to be evaluated for the MRI findings. PMH: Diabetes, she tells me her A1c is usually around 7, history of hypertension, coronary disease with stents, she is followed by Dr. Melendez here at [facility]. She remains on aspirin and Plavix, she was told that she needs to be very cautious down the road if she is ever to consider going under general anesthesia. She is not sure exactly what in terms of her heart disease made them say this, but she has always been very reluctant to consider it given their hesitations. Her record does indicate she has had a history of ischemic cardiomyopathy. History of renal disease stage III, mesenteric ischemia. History of appendectomy, diabetic neuropathy. Social hx: Quit smoking 2000, does not drink use any recreational drugs Medications: Plavix, aspirin, glimepiride and gabapentin Allergies: Metformin Physical exam: Awake alert oriented no acute distress, motor examination reveals that she does not have any significant weakness or notable weakness on her exam. There is a little bit of pain related weakness with lifting her leg but otherwise motor is intact. Sensory examination reveals some diminished sensation to light touch along the back of her calf and on her lateral malleolus. Reflexes absent at the Achilles bilaterally. Patellar reflexes intact. Imaging review: Lumbar MRI done at the [facility] shows degenerative disc disease, moderate lateral recess stenosis at L4-5, small herniated disc at L5-S1 on the right which is likely displacing the right S1 nerve root, best seen on the sagittal imaging. There is no compression of the right L5 nerve in the foramen. Impression: 84-year-old female with herniated disc on the right at L5-S1 which appears to be contacting the right S1 nerve root on the imaging, her pain is currently getting better on its own so it sounds like the disc is retracting. At this point I do not think she needs surgery. In terms of other interventions like physical therapy and cortisone injections, the herniated disc may get better even without this. Considering her status with her diabetes they may not offer her an injection any way. I told her just to give it a little more time and if it does not go away we can talk about these other options but for now it sounds like it is going to resolve on its own. Thank you for allowing us to care for your patient. The total time spent with this visit with this patient was 45 minutes reviewing history, physical exam, lumbar imaging review, and implementation of treatment plan or further diagnostic testing Julio Bahena MD,PhD [facility] Coding Level of Care Code New Pt Level 4 (00113) Diagnoses Lumbar disc herniation M51.26
[2024-11-28 11:23] VITALS: BMI 25.8
--- OUTSIDE RECORDS SUMMARY | 2024-11-28 12:49 | XMS_ITS | Encounter Summary ---
Author Organization [facility] Address [address] [place] [address] Encounter Details Date Type Department Care Team Description 2024-06-27 Telephone [facility] [address] [place] [address] Rose Valentino Medication Reconciliation was successfully completed by the [facility]. ASSESSMENT No Information TREATMENT PLAN No Information
--- OUTSIDE RECORDS SUMMARY | 2024-11-28 12:50 | XMS_ITS | Continuity of Care Document ---
Author Name [facility] Organization [facility] Care Team Providers Care Retail Performance Coach Name Role Phone [facility] Unavailable Unavailable Problems Combined list of problems [...] Site Reaction Lot Number CVX Code Drug Electronic Specialist Status Comments Source COVID-19 (MODERNA), MRNA, LNP-S, PF, 100 MCG/0.5 ML DOSE 2 2020 207 complet ed MOD; [id number]; IELD COVID-19 (MODERNA), MRNA, LNP-S, PF, 100 MCG/0.5 ML DOSE 1 2020 207 complet ed MOD; [id number]; IELD Encounters Combined list of: 1) Encounters from Department of Veterans Affairs facilities going backup to the last 18 months, not all VA inpatient encounters are included; 2) Encounters from the Department of Defense facilities going backup to 280 months. Location Location Details Encounter Type Encounter Number Reason For Visit Attending Provider ADM Date DC Date Status Disposition Source [facility] (6[facility]) CASE MANAGEMENT [id number] Diagnos is: ICD-10- CM Z71.0 Prsn encntr hlth serv to consult on behalf of another person Gabriele WADE 06/01 [facility] (631GE) [facility] (631GE) [facility] ASSMT/REAS SESSMENT [id number] Diagnos is: ICD-10- CM Z71.0 Prsn encntr hlth serv to consult on behalf of another person JENNITERESAGabriele NAHID 09/14 [facility] (631GE) [facility] Outpatient Encounter [id number] 09/24 [facility] HC PRO PHONE CALL 5-10 MIN [id number] Diagnos is: ICD-10- CM Z71.0 Prsn encntr hlth serv to consult on behalf of another person [place] E 10/14 [facility] HC PRO PHONE CALL 5-10 MIN [id number] Diagnos is: ICD-10- CM Z71.0 Prsn encntr hlth serv to consult on behalf of another person [place] E 10/22 [facility] HC PRO PHONE CALL 5-10 MIN [id number] Diagnos is: ICD-10- CM Z71.0 Prsn encntr hlth serv to consult on behalf of another person [place] E 10/28 [facility] HC PRO PHONE CALL 5-10 MIN [id number] Diagnos is: ICD-10- CM Z71.0 Prsn encntr hlth serv to consult on behalf of another person [place] E 10/30 [facility] HC PRO PHONE CALL 5-10 MIN [id number] Diagnos is: ICD-10- CM Z71.0 Prsn encntr hlth serv to consult on behalf of another person [place],RU TH E 12/14 [facility]
--- OUTSIDE RECORDS SUMMARY | 2024-11-28 12:50 | XMS_ITS | Patient Health Record ---
Author Organization [facility] Address [address] [place] [address] Care Team Providers Care Lead Enterprise Architect Name Role Phone Milton SHERMAN, Glen Primary Care Provider Unavailab Bull [place] Unavailable [phone] Allergies Allergen (clinical drug ingredient) Drug/Non Drug Allergy documented on EMR Reaction Allergy Type Onset Date Status hydroxyzine Hydroxyzine Unknown Drug Allergy Act paco lisinopril Lisinopril Unknown Drug Allergy Activ e metformin Metformin Unknown Drug Allergy Active Substance with 7-eypoywt-5-methylgluta ryl-coenzyme A reductase inhibitor mechanism of action [...] Problem Acquired hammer toe of right foot (8098019066471463 ) Other hammer toe(s) (acquired), right foot (M20.41) Active confirmed Problem Acquired hammer toe of left foot (5105908419375516 ) Other hammer toe(s) (acquired), left foot (M20.42) Active confirmed Problem Polyneuropathy due to type 2 diabetes mellitus (394768629) Type 2 diabetes mellitus with diabetic polyneuropathy (E11.42) Active confirmed Plan Of Treatment No Information Insurance Providers Payer Name Payer Address Payer Phone Subscriber Number Group Number Insured Name Patient Relationship to Insured Coverage Start Date Coverage End Date [employer] Medicare [id number] [address] [address] [place] [phone] [id number] Anna Herrera Self - patient is the insured Medical (General) History Medical History History ICD Code Diabetic High blood pressure Numbness Surgical History Surgery Date(Month/Year) stents 01/03/2018 appendectomy 1968
--- OUTSIDE RECORDS SUMMARY | 2024-11-28 12:50 | XMS_ITS | Clinical Summary ---
Author Organization [facility] Address [address] [place] [address] Phone Care Team Providers Care Director Of Music Name Role Phone Glen Rose MD Primary Care Provider [phone] Allergies Active Allergy Reactions Criticality Noted Date Comments Hydroxyzine Unknown 10/22/2024 Lisinopril Unknown 10/22/2024 Metformin Anaphylaxis High 10/22/2024 Medications methocarbamoL (ROBAXIN) 750 mg tablet Take 1 tablet (750 mg total) by mouth 4 (four) times a day for 7 days. 28 each 10/22/2024 Active Active Problems No known active problems Encounters Date Type Department Care Team Description 10/22/2024 3:28 PM EST - 10/22/2024 7:00 PM EST Emergency [facility] Emergency [address] [place] [address] Sciatic pain, right (Primary Dx) Discharge Disposition: Home or Self Care from Last 3 Months Social History Tobacco Use Types Packs/Day Years Used Date Smoking Tobacco: Never Assessed Comments Unknown Sex and Gender Information Value Date Recorded Sex Assigned at Female 10/22/2024 4:20 PM EST Legal Sex Female 12:13 AM EST Gender Identity Female 10/22/2024 4:20 PM EST Sexual Orientation Straight 10/22/2024 4: 20 PM EST Obstetrics History Last Filed Vital Signs Vital Sign Reading Time Taken Comments Blood Pressure 127/79 10/22/2024 3:41 PM EST Pulse 78 10/22/2024 3:41 PM EST Temperature 36.9 ??C (98.4 ??F) 10/22/2024 3:41 PM ES T Respiratory Rate 18 10/22/2024 3:41 PM EST Oxygen Saturation 97% 10/22/2024 3:41 PM EST Inhaled Oxygen Concentration - - Weight 78 kg (172 lb) 01/24/2022 8:10 AM EDT Height 170.2 cm (5' 7 ) 01/24/2022 8:10 AM EDT Body Mass Index 26.94 01/24/2022 8:10 AM EDT Plan of Treatment Health Maintenance Due Date Last Done Comments Diabetes: Annual Foot Exam 1952 Diabetes: Annual Retina Eye Exam 1950 DTaP,Tdap,and Td Vaccines (1 - Tdap) 1961 Zoster Vaccines (1 of 2) 1992 RSV Immunization Patients 60+ Years Old (1 - 1-dose 75+ series) 2017 Cholesterol Screening (Lipid Panel) 09/07/2022 Depression Screening 09/07/2022 Falls Risk Assessment 09/07/2022 Medicare Annual Wellness Visit 09/07/2022 Osteoporosis Screening (Bone Density Screening) 09/07/2022 Social Influencers of Health Screening 09/07/2022 COVID-19 Vaccine ( season) 2024 11/10/2022, 01/30/2022, 07/16/2021, Additional history exists Influenza Vaccine (#1) 2024 Diabetes: Annual Urine Albumin-Creatinine Ratio (uACR) 10/22/2024 Diabetes: Blood Sugar Control Test (HGBA1C) 10/22/2024 Diabetes: Annual GFR (Glomerular Filtration Rate) 10/22/2025 10/22/2024 Pneumococcal Vaccine: 50+ Years Completed 10/02/2017, 10/02/2016 HIB Vaccines Aged Out No longer eligi ble based on patient's age to complete this topic HPV Vaccines Aged Out No longer eligi ble based on patient's age to complete this topic Hepatitis A Vaccines Aged Out No long er eligible based on patient's age to complete this topic Hepatitis B Vaccines Aged Out No long er eligible based on patient's age to complete this topic IPV Vaccines Aged Out No longer eligi ble based on patient's age to complete this topic MMR Vaccines Aged Out No longer eligi ble based on patient's age to complete this topic Meningococcal ACWY Vaccine Aged Out N o longer eligible based on patient's age to complete this topic Meningococcal B Vacine Aged Out No lo nger eligible based on patient's age to complete this topic RSV Immunization Patients Under 20 months Aged Out No longer eligible based on patient's age to complete this topic Varicella Vaccines Aged Out No longer eligible based on patient's age to complete this topic Procedures Procedure Name Priority Date/Time Associated Diagnosis Comments CBC WITH AUTO DIFFERENTIAL STAT 10/22/2024 4:08 PM EST BASIC METABOLIC PANEL STAT 10/22/2024 4:08 PM EST CBC AND DIFFERENTIAL STAT 10/22/2024 4:08 PM EST from Last 3 Months Results * (ABNORMAL) CBC auto differential (10/22/2024 4:08 PM EST) WBC 6.2 4.8 - 10.8 K/mcL LAB HEMETOLOGY METHOD 10/22/2024 4:30 PM [facility] RBC 4.30 3.80 - 4.80 M/mcL LAB HEMETOLOGY METHOD 10/22/2024 4:30 PM [facility] Hemoglobin 12.6 11.5 - 16.0 g/dL LAB HEMETOLOGY METHOD 10/22/2024 4:30 PM [facility] Hematocrit 39.7 35.0 - 47.0 % LAB HEMETOLOGY METHOD 10/22/2024 4:30 PM [facility] MCV 91.5 79.0 - 98.0 FL LAB HEMETOLOGY METHOD 10/22/2024 4:30 PM [facility] MCH 29.0 27.0 - 32.0 pcg LAB HEMETOLOGY METHOD 10/22/2024 4:30 PM [facility] MCHC 31.7(L) 32.0 - 37.0 g/dL LAB HEMETOLOGY METHOD 10/22/2024 4:30 PM [facility] RDW 12.1 11.0 - 15.0 % LAB HEMETOLOGY METHOD 10/22/2024 4:30 PM [facility] Platelets 193 130 - 400 K/mcL LAB HEMETOLOGY METHOD 10/22/2024 4:30 PM [facility] MPV 10.5 7.0 - 11.0 FL LAB HEMETOLOGY METHOD 10/22/2024 4:30 PM [facility] NRBC 0.0 <1.0 % LAB HEMETOLOGY METHOD 10/22/2024 4:30 PM [facility] NRBC Absolute 0.00 <0.10 K/mcL LAB HEMETOLOGY METHOD 10/22/2024 4:30 PM [facility] Neutrophils Relative 81.2 % LAB HEMETOLOGY METHOD 10/22/2024 4:30 PM [facility] Lymphocytes Relative 10.3 % LAB HEMETOLOGY METHOD 10/22/2024 4:30 PM [facility] Monocytes Relative 7.4 % LAB HEMETOLOGY METHOD 10/22/2024 4:30 PM [facility] Eosinophils Relative 0.3 % LAB HEMETOLOGY METHOD 10/22/2024 4:30 PM [facility] Basophils Relative 0.3 % LAB HEMETOLOGY METHOD 10/22/2024 4:30 PM [facility] Immature Granulocytes Relative 0.5 % LAB HEMETOLOGY METHOD 10/22/2024 4:30 PM [facility] Neutrophils Absolute 5.03 1.50 - 7.00 K/mcL LAB HEMETOLOGY METHOD 10/22/2024 4:30 PM EST [facility] Lymphocytes Absolute 0.64(L) 1.00 - 5.00 K/[facility] LAB HEMETOLOGY METHOD 10/22/2024 4:30 PM EST [facility] Monocytes Absolute 0.46 0.20 - 1.00 K/mcL LAB HEMETOLOGY METHOD 10/22/2024 4:30 PM EST [facility] Eosinophils Absolute 0.02 0.00 - 0.50 K/[facility] LAB HEMETOLOGY METHOD 10/22/2024 4:30 PM EST [facility] Basophils Absolute 0.02 0.00 - 0.20 K/[facility] LAB HEMETOLOGY METHOD 10/22/2024 4:30 PM [facility] Immature Granulocytes Absolute 0.03 0.00 - 0.03 K/[facility] LAB HEMETOLOGY METHOD 10/22/2024 4:30 PM [facility] Blood Venous blood specimen / Unknown Venipuncture / Unknown 10/22/2024 4:08 PM EST 10/22/2024 4:23 PM EST us Roseline FREDERICK LAB BLOOD ORDERABLES Final Result [facility] [address] [place] [address], * (ABNORMAL) Basic metabolic panel (10/22/2024 4:08 PM EST) Sodium 134 133 - 145 mmol/L LAB CHEMISTRY METHOD 10/22/2024 4:46 PM EST [facility] Potassium 4.4 3.5 - 5.5 mmol/L LAB CHEMISTRY METHOD 10/22/2024 4:46 PM [facility] Chloride 103 96 - 110 mmol/L LAB CHEMISTRY METHOD 10/22/2024 4:46 PM EST [facility] CO2 24 21 - 32 mmol/L LAB CHEMISTRY METHOD 10/22/2024 4:46 PM [facility] Anion Gap 7 3 - 11 LAB CHEMISTRY METHOD 10/22/2024 4:46 PM [facility] Glucose 151(H) 70 - 100 mg/dL LAB CHEMISTRY METHOD 10/22/2024 4:46 PM [facility] BUN 37(H) 5 - 25 mg/dL LAB CHEMISTRY METHOD 10/22/2024 4:46 PM [facility] Creatinine 2.02(H) 0.50 - 1.10 mg/dL LAB CHEMISTRY METHOD 10/22/2024 4:46 PM [facility] eGFR 24(L) >=60 mL/min/1. 73m2 LAB CHEMISTRY METHOD 10/22/2024 4:46 PM [facility] Comment:Calculation based on the??Chronic Kidney Disease Epidemiology Collaboration (CKD-EPI) equation refit??without adjustment for race. BUN/Creatinine Ratio 18.3 LAB CHEMISTRY METHOD 10/22/2024 4:46 PM [facility] Calcium 9.5 8.5 - 10.5 mg/dL LAB CHEMISTRY METHOD 10/22/2024 4:46 PM [facility] Blood Venous blood specimen / Unknown Venipuncture / Unknown 10/22/2024 4:08 PM EST 10/22/2024 4:23 PM EST us Roseline FREDERICK LAB BLOOD ORDERABLES Final Result [facility] [address] [place] [address], [place] [phone] from Last 3 Months Insurance [employer] MEDICARE Advance Directives Documents on File Type Date Recorded Patient Social Work Manager Expl anation DNR (Do Not Resuscitate) 10/22/2024 4:31 PM Power of Telephone Sales Representative 10/22/2024 4:29 PM Healthcare Agents on File Name Relationship Healthcare Agent [facility] p Communication Tony Javier [facility] Care Agent [employer] [facility] Health Car e Agent Care Teams Director Of Music Relationship Specialty Start Date End Date Glen Rose MD [address] [place] [address] [place] [address] PCP - General Internal Medicine 10/05/12
== END 2024-11-28 12:09 | disposition home or self-care (01) ==
PROVIDERS: PCP Family Medicine; Referring Provider Family Medicine; Visit Provider Physician Assistant
DX: M51.26 Other intervertebral disc displacement, lumbar region (principal)
CPT/HCPCS: 99204

== ENCOUNTER → 2024-11-28 11:10 | Outpatient (BNVA) | payer MEDICARE, SELFPAY | PROVIDERS: PCP Family Medicine; Referring Provider Family Medicine; Visit Provider Physician Assistant | DX: M51.26 Other intervertebral disc displacement, lumbar region (principal) | CPT/HCPCS: 99202 ==

== ENCOUNTER 2024-12-26 11:30 | Outpatient (REF) | payer MEDICARE, SELFPAY ==
[2024-12-26 12:34] LABS: Estimated Average Glucose 163 mg/dL; Hemoglobin A1c % 7.3 % (<6.0)
[2024-12-26 12:54] LABS: Alanine Aminotransferase 10 U/L (0-31); Anion Gap 12 (12-20); Aspartate Amino Transferase 15 U/L (5-31); Blood Urea Nitrogen 24 mg/dL (9-16); Carbon Dioxide 22 mmol/L (22-29); Chloride 113 mmol/L (96-108); Estimated Glomerular Filt Rate 29; Glucose Fasting 110 mg/dL (60-99); Sodium 142 mmol/L (135-145)
[2024-12-26 13:27] LABS: Creatinine Urine 55.56 mg/dL; Microalbum/Creatinine Ratio Ur 68.3 ug/mg cr (<30)
== END 2024-12-26 11:31 | disposition home or self-care (01) ==
LOC: HO.LAB 11:30
PROVIDERS: PCP Family Medicine; Visit Provider Family Medicine
DX: I10 Essential (primary) hypertension (principal); E11.9 Type 2 diabetes mellitus without complications; R11.0 Nausea
CPT/HCPCS: 36415; 80051; 82043; 82565; 82570; 82947; 83036; 84450; 84460; 84520

== ENCOUNTER → 2024-12-28 14:40 | Outpatient (REF) | payer MEDICARE, SELFPAY ==
--- NOTE | 2024-12-28 14:43 | CA_ITS ---
Transthoracic Echocardiogram Patient (Last, First, Middle): Anna Anderson C Gender: Female Date of : 1940 Age: 84 Procedure Date: 12/28/2024 Procedure Type: Transthoracic Echocardiogram Location: OP Height: 170. cm Weight: 74.84 kg BSA: 1.86 m2 Heart Rate: 80 bpm BP: 160 / 55 mmHg Transition Of Care Specialist: LIBIA Referring MD: eSverino Melendez MD Yoghurt Maker: Severino Melendez MD Symptoms: I25.5 - Ischemic cardiomyopathy Study Quality: Adequate w/Contrast ECG Rhythm: Arrhythmia Conclusions: - 1. Mildly reduced LV ejection fraction 45-50% with underlying regional wall motion abnormality consistent with coronary artery disease 2. Normal cardiac valvular Dopplers 3. Normal RV systolic pressure 4. No gross pericardial effusion Findings Procedure Information Contrast agent, definity, is being given per protocol without apparent complications. Left Ventricle Normal left ventricular cavity size. There is normal left ventricular wall thickness. The left ventricular systolic function is mildly decreased. The visually estimated ejection fraction is between 45-50%. Spectral Doppler is indicative of an impaired relaxation filling pattern. Elevated filling pressures. E/E prime ratio is >15, consistent with elevated filling pressures. Wall Motion Rest Echo Findings The inferolateral wall and mid inferoseptal segment are hypokinetic. The basal inferior, mid inferior, and basal inferoseptal segments are akinetic. All other scored wall segments showed normal motion. Right Ventricle Normal right ventricular cavity size and systolic function. Atria The left atrium is likely dilated. There is lipomatous hypertrophy of the interatrial septum. There is no evidence of interatrial shunt. The right atrium is normal in size. Aortic Valve The aortic valve was not well visualized. There is no aortic valve stenosis. The peak aortic gradient is 6 mmHg.The mean gradient is 4 mmHg. There is no aortic valve regurgitation. Mitral Valve There is mild anterior and posterior mitral leaflet thickening. There is trace mitral valve regurgitation. There is no mitral valve stenosis. Pulmonic Valve The pulmonic valve was not well visualized. Tricuspid Valve Likely normal tricuspid valve structure and function. There is trace tricuspid valve regurgitation. The right ventricular systolic pressure is normal. The right ventricular systolic pressure is 22 mmHg. Normal right atrial pressure. There is no evidence of pulmonary hypertension. Great Vessels The pulmonary artery was not well visualized. There is no dilatation of the ascending aorta measuring 3.20 cm. Venous The inferior vena cava is normal in size and collapses greater than 50% with inspiration. Pericardium/Pleural There is no evidence of pericardial effusion. Prior Study Comparison Changes noted compared to prior study dated: 09/09/2023. LV systolic function has reduced Measurements 2D Linear Measurements IVSd: 0.86 0.6-0.9/0.6-1.0 cm LVIDd: 5.38 3.9-5.3/4.2-5.9 cm LVIDd Index: 2.89 2.4-3.2/2.2-3.1 cm/m2 LVIDs: 4.21 2.0-3.6 cm LVPWd: 0.98 0.7-1.1 cm LA Diam: 4.00 2.7-3.8/3.0-4.0 cm LAIDs Index: 2.15 1.5-2.3 cm/m2 LV Mass: 228.82 67-162/88-224 g LV Mass Index: 123.02 43-95/49-115 g/m2 LVOT Diam: 2.00 3.0+(-)1.3 cm 2D Systolic Function EF 4C: 42.20 >55% EF 2C: 50.50 >55% EF BiP: 47.00 >55% Mitral Valve MV Pk E: 0.97 MV PK A: 1.34 MV Decel Time: 148.00 E/A: 0.70 E'Lateral: 5.48 E'Medial: 3.70 E/E' Med: 26.30 E/E' Lat: 17.80 PHT: 43.00 MVA PHT: 5.12 Decel [place]: 6.58 Aortic Valve AoV Pk Errol: 1.21 AoV Mn Errol: 0.90 AoV VTI: 0.29 AoV Pk Grad: 6.00 Aov Mn Grad: 4.00 RON Cont.VTI: 2.06 LVOT LVOT Pk Errol: 0.82 LVOT Mn Errol: 0.61 LVOT VTI: 0.19 LVOT Pk Grad: 3.00 LVOT Mn Grad: 2.00 LVOT Diam: 2.00 LVOT Area: 3.14 Diastolic Function MV Pk E: 0.97 MV Pk A: 1.34 E/A: 0.70 E'Medial: 3.70 E/E' Med: 26.30 E' Laterial: 5.48 E/E' Lat: 17.80 Right Ventricle TAPSE (mm): 19.10 TVS' Errol: 11.20 Tricuspid Valve TR Pk Errol: 2.19 TR Pk Grad: 19.00 RA Press: 3.00 RVSP: 22.00 Great Vessels Aorta Sinus of Valsalva: 3.00 2.0-3.5 cm Ao Asc: 3.20 2.1-3.4 cm Pulmonary Valve PV Pk Errol: 0.81 Peak PV Grad: 3.00 Updated in Other Vendor System with Status of Final Severino Melendez MD electronically signed on 12/29/2024 2:25:51 PM with status of Final
--- OUTSIDE RECORDS SUMMARY | 2024-12-28 17:33 | XMS_ITS | Clinical Summary ---
Author Organization [facility] Address [address] [place] [address] Phone Care Team Providers Care Acting Professor Name Role Phone Glen Rose MD Primary Care Provider [phone] Allergies Active Allergy Reactions Criticality Noted Date [...] EST - 10/22/2024 7:00 PM EST Emergency [facility] Emergency [address] [place] [address] Sciatic pain, right (Primary Dx) [...] K/mcL LAB HEMETOLOGY METHOD 10/22/2024 4:30 PM [facility] RBC 4.30 3.80 - 4.80 M/mcL LAB HEMETOLOGY METHOD 10/22/2024 4:30 PM [facility] Hemoglobin 12.6 11.5 - 16.0 g/dL LAB HEMETOLOGY METHOD 10/22/2024 4:30 PM [facility] Hematocrit 39.7 35.0 - 47.0 % LAB HEMETOLOGY METHOD 10/22/2024 4:30 PM [facility] MCV 91.5 79.0 - 98.0 FL LAB HEMETOLOGY METHOD 10/22/2024 4:30 PM [facility] MCH 29.0 27.0 - 32.0 pcg LAB HEMETOLOGY METHOD 10/22/2024 4:30 PM [facility] MCHC 31.7(L) 32.0 - 37.0 g/dL LAB HEMETOLOGY METHOD 10/22/2024 4:30 PM [facility] RDW 12.1 11.0 - 15.0 % LAB HEMETOLOGY METHOD 10/22/2024 4:30 PM [facility] Platelets 193 130 - 400 K/mcL LAB HEMETOLOGY METHOD 10/22/2024 4:30 PM [facility] MPV 10.5 7.0 - 11.0 FL LAB HEMETOLOGY METHOD 10/22/2024 4:30 PM [facility] NRBC 0.0 <1.0 % LAB HEMETOLOGY METHOD 10/22/2024 4:30 PM [facility] NRBC Absolute 0.00 <0.10 K/mcL LAB HEMETOLOGY METHOD 10/22/2024 4:30 PM [facility] Neutrophils Relative 81.2 % LAB HEMETOLOGY METHOD 10/22/2024 4:30 PM [facility] Lymphocytes Relative 10.3 % LAB HEMETOLOGY METHOD 10/22/2024 4:30 PM [facility] Monocytes Relative 7.4 % LAB HEMETOLOGY METHOD 10/22/2024 4:30 PM [facility] Eosinophils Relative 0.3 % LAB HEMETOLOGY METHOD 10/22/2024 4:30 PM [facility] Basophils Relative 0.3 % LAB HEMETOLOGY METHOD 10/22/2024 4:30 PM [facility] Immature Granulocytes Relative 0.5 % LAB HEMETOLOGY METHOD 10/22/2024 4:30 PM [facility] Neutrophils Absolute 5.03 1.50 - 7.00 K/mcL LAB HEMETOLOGY METHOD 10/22/2024 4:30 PM EST [facility] Lymphocytes Absolute 0.64(L) 1.00 - 5.00 K/[facility] LAB HEMETOLOGY METHOD 10/22/2024 4:30 PM EST [facility] Monocytes Absolute 0.46 0.20 - 1.00 K/mcL LAB HEMETOLOGY METHOD 10/22/2024 4:30 PM EST [facility] Eosinophils Absolute 0.02 0.00 - 0.50 K/[facility] LAB HEMETOLOGY METHOD 10/22/2024 4:30 PM EST [facility] Basophils Absolute 0.02 0.00 - 0.20 K/[facility] LAB HEMETOLOGY METHOD 10/22/2024 4:30 PM [facility] Immature Granulocytes Absolute 0.03 0.00 - 0.03 K/[facility] LAB HEMETOLOGY METHOD 10/22/2024 4:30 PM [facility] Blood Venous blood specimen / Unknown Venipuncture / Unknown 10/22/2024 4:08 PM EST 10/22/2024 4:23 PM EST us Roseline FREDERICK LAB BLOOD ORDERABLES Final Result [facility] [address] [place] [address], * (ABNORMAL) Basic metabolic panel (10/22/2024 4:08 PM EST) Sodium 134 133 - 145 mmol/L LAB CHEMISTRY METHOD 10/22/2024 4:46 PM EST [facility] Potassium 4.4 3.5 - 5.5 mmol/L LAB CHEMISTRY METHOD 10/22/2024 4:46 PM [facility] Chloride 103 96 - 110 mmol/L LAB CHEMISTRY METHOD 10/22/2024 4:46 PM EST [facility] CO2 24 21 - 32 mmol/L LAB CHEMISTRY METHOD 10/22/2024 4:46 PM [facility] Anion Gap 7 3 - 11 LAB CHEMISTRY METHOD 10/22/2024 4:46 PM [facility] Glucose 151(H) 70 - 100 mg/dL LAB CHEMISTRY METHOD 10/22/2024 4:46 PM [facility] BUN 37(H) 5 - 25 mg/dL LAB CHEMISTRY METHOD 10/22/2024 4:46 PM [facility] Creatinine 2.02(H) 0.50 - 1.10 mg/dL LAB CHEMISTRY METHOD 10/22/2024 4:46 PM [facility] eGFR 24(L) >=60 mL/min/1. 73m2 LAB CHEMISTRY METHOD 10/22/2024 4:46 PM [facility] Comment:Calculation based on the??Chronic Kidney Disease Epidemiology Collaboration (CKD-EPI) equation refit??without adjustment for race. BUN/Creatinine Ratio 18.3 LAB CHEMISTRY METHOD 10/22/2024 4:46 PM [facility] Calcium 9.5 8.5 - 10.5 mg/dL LAB CHEMISTRY METHOD 10/22/2024 4:46 PM [facility] Blood Venous blood specimen / Unknown Venipuncture / Unknown 10/22/2024 4:08 PM EST 10/22/2024 4:23 PM EST us Roseline FREDERICK LAB BLOOD ORDERABLES Final Result [facility] [address] [place] [address], [place] [phone] from Last 3 Months Insurance [employer] MEDICARE Advance Directives Documents on File Type Date Recorded Patient Petrographer Expl anation DNR (Do Not Resuscitate) 10/22/2024 4:31 PM Power of Interior Design Consultant 10/22/2024 4:29 PM Healthcare Agents on File Name Relationship Healthcare Agent [facility] p Communication Tony Javier [facility] Health Care Agent [employer] [facility] Health Car e Agent Care Teams Acting Professor Relationship Specialty Start Date End Date Glen Rose MD [address] [place] [address] [place] [address] PCP - General Internal Medicine 10/05/12
--- OUTSIDE RECORDS SUMMARY | 2024-12-28 17:33 | XMS_ITS | Continuity of Care Document ---
Author Name [facility] Organization [facility] Care Team Providers Care Stitch Bonding Machine Drawer In Name Role Phone [facility] Unavailable Unavailable Problems Combined list of problems from Department of Defense and Veterans Affairs facilities. It does not include entries that were removed or entered in error. Problem Status Onset Date Problem Type Date of Resolution Comments Source Diagnosis: ICD-10-CM Z71.0 Prsn encntr hlth serv to consult on behalf of another person Active Diagnosis [facility] Immunizations Combined list of available immunizations from the Department of Defense and Veterans Affairs facilities. Immunization Series Date Given Administered By Site Reaction Lot Number CVX Code Drug Waste Chopper Status Comments Source COVID-19 (MODERNA), MRNA, LNP-S, PF, 100 MCG/0.5 ML DOSE 2 2020 207 complet ed MOD; [id number]; IELD COVID-19 (MODERNA), MRNA, LNP-S, PF, 100 MCG/0.5 ML DOSE 1 2020 207 complet ed MOD; [id number]; IELD Encounters Combined list of: 1) Encounters from Department of Veterans Affairs facilities going backup to the last 18 months, not all VA inpatient encounters are included; 2) Encounters from the Department of Defense facilities going backup to 280 months. Location Location Details Encounter Type Encounter Number Reason For Visit Attending Provider ADM Date DC Date Status Disposition Source [facility] ([facility]) PENDING S[facility] TO [facility] SESSMENT [id number] Diagnos is: ICD-10- CM Z71.0 Prsn encntr hlth serv to consult on behalf of another person Gabriele WADE 09/14 [facility] ([id number] Outpatient Encounter [id number] 12/21 /2023 [facility] HC PRO PHONE CALL 5-10 MIN [id number] Diagnos is: ICD-10- CM Z71.0 Prsn encntr hlth serv to consult on behalf of another person [place] [place] 10/14 [facility] PRO PHONE CALL 5-10 MIN [id number] Diagnos is: ICD-10- CM Z71.0 Prsn encntr hlth serv to consult on behalf of another person [place] 10/22 [facility] PRO PHONE CALL 5-10 MIN [id number] Diagnos is: ICD-10- CM Z71.0 Prsn encntr hlth serv to consult on behalf of another person [place] E 10/28 [facility] PRO PHONE CALL 5-10 MIN [id number] Diagnos is: ICD-10- CM Z71.0 Prsn encntr hlth serv to consult on behalf of another person [place] E 10/30 [facility] PRO PHONE CALL 5-10 MIN [id number] Diagnos is: ICD-10- CM Z71.0 Prsn encntr hlth serv to consult on behalf of another person [place] 12/14 [facility]
--- OUTSIDE RECORDS SUMMARY | 2024-12-28 17:33 | XMS_ITS | Patient Health Record ---
Author Organization [facility] Address [address] [place] [address] Care Team Providers Care Front Maker Name Role Phone Milton SHERMAN, Glen Primary Care Provider Unavailab Bull [place] Unavailable [phone] Allergies Allergen (clinical drug ingredient) Drug/Non Drug Allergy documented on EMR Reaction Allergy Type Onset Date Status hydroxyzine Hydroxyzine Unknown Drug Allergy Act paco lisinopril Lisinopril Unknown Drug Allergy Activ e metformin Metformin Unknown Drug Allergy Active Substance with 1-jcxfvrx-4-methylgluta ryl-coenzyme A reductase inhibitor mechanism of action [...] Problem Acquired hammer toe of right foot (8874692859517813 ) Other hammer toe(s) (acquired), right foot (M20.41) Active confirmed Problem Acquired hammer toe of left foot ([id number] ) Other hammer toe(s) (acquired), left foot (M20.42) Active confirmed Problem Polyneuropathy due to type 2 diabetes mellitus (559567842) Type 2 diabetes mellitus with diabetic polyneuropathy (E11.42) Active confirmed Plan Of Treatment No Information Insurance Providers Payer Name Payer Address Payer Phone Subscriber Number Group Number Insured Name Patient Relationship to Insured Coverage Start Date Coverage End Date [employer] Medicare [id number] [address] [address] [place] [address] [id number] Anna Herrera Self - patient is the insured Medical (General) History Medical History History ICD Code Diabetic High blood pressure Numbness Surgical History Surgery Date(Month/Year) stents 01/03/2018 appendectomy 1968
== END ==
LOC: HO.CARD 14:40
PROVIDERS: PCP Family Medicine; Visit Provider Internal Medicine Cardiovascular Disease
DX: I25.5 Ischemic cardiomyopathy (principal)
CPT/HCPCS: 93306; Q9957

== ENCOUNTER → 2024-12-28 14:43 | Outpatient (BNV) | payer MEDICARE, SELFPAY | PROVIDERS: PCP Family Medicine; Visit Provider Internal Medicine Cardiovascular Disease | DX: I34.0 Nonrheumatic mitral (valve) insufficiency (principal) | CPT/HCPCS: 93306 ==

== ENCOUNTER 2024-12-29 09:40 | Outpatient (AMB) | payer MEDICARE, SELFPAY ==
--- NOTE | 2024-12-29 09:47 | HO.NEPHOV ---
Vital Signs 12/29/24 09:48 Height 5 ft 7 in Weight 169 lb BMI 26.5 BP 138/60 Blood Pressure Location Lt brachial Position Sitting Intake Visit Reasons: Rscng canceled appt Servicer Travel Trailers Required: No Accompanied by: Self / Same As Patient Allergies metformin Allergy (Unknown, Verified 12/29/24 09:48) gi barium sulfate [From Eneset 2] Adverse Reaction (Mild, Verified 12/29/24 09:48) Stomach Upset carvedilol Adverse Reaction (Mild, Verified 12/29/24 09:48) Stomach Upset hydroxyzine Adverse Reaction (Mild, Verified 12/29/24 09:48) Stomach Upset metoprolol Adverse Reaction (Mild, Verified 12/29/24 09:48) Cough lisinopril Adverse Reaction (Unknown, Verified 12/29/24 09:48) cough Statins Support Allergy (Unknown, Uncoded 07/19/24 14:11) mx HPI Comments Details: I had the privilege of seeing of seeing Anna in follow up for CKD and hypertension. She is a 84 year old with H/O PAD as well as CAD. She is hypertensive on medications. She denied any retinopathy or neuropathy, CVA, CHF, renal stones, new bone or back pain, hypercalcemia, edema, hematuria, sensori neural deafness, epistaxis, photosensitivity, recent infection, skin rashes. Her serum creatinine stable. She has no new systemic symptoms. She has left KATHY. She feels well but concerned about her decline in GFR [facility] Medical History Exertional angina Hyperlipidemia HTN (hypertension) PVD (peripheral vascular disease) Diabetes mellitus CAD (coronary artery disease) Surgical History Hx of appendectomy Stented coronary artery Social History Household Members: Children Housing: House Alcohol intake: never Patient Tobacco Use Status: Former Tobacco user Review of Systems Const All systems reviewed & are unremarkable except as noted in HPI and below Physical Exam Vital Signs: Last Vital Signs BP 138/60 12/29/24 09:48 BMI result Body Mass Index 26.5 Const General: comfortable and no acute distress Orientation/consciousness: patient oriented x3 HEENT Head: Yes normocephalic Mouth: Normal oral and palatal mucosa present Eyes EOM: EOMs intact bilaterally Neck Neck: Yes supple Resp Auscultation: clear to auscultation bilaterally Cardio Jugular venous distension: no JVD Rate: regular rate GI Palpation (GI): Soft to palpation Auscultation: normal bowel sounds Skin General skin exam: no rashes or lesions noted Neuro General: patient oriented x3 and moves all extremities Extrem General: Yes no pedal edema Results Reviewed Nephrology Results: Hgb 12.5 g/dl (12.0-16.0) 07/19/24 WBC 4.6 X10*3/uL (4.8-10.8) L 07/19/24 Plt Count 194 X10*3/uL (160-400) 07/19/24 Sodium 142 mmol/L (135-145) 12/26/24 Potassium 5.0 mmol/L (3.3-5.1) 12/26/24 Chloride 113 mmol/L (96-108) H 12/26/24 Carbon Dioxide 22 mmol/L (22-29) 12/26/24 BUN 24 mg/dL (9-16) H 12/26/24 Creatinine 1.70 mg/dL (0.5-1.4) H 12/26/24 Urine Creatinine 55.56 mg/dL 12/26/24 Assessment & Plan Assessment & Plan (1) Renal artery stenosis, [place]: Code(s): I70.1 - Atherosclerosis of renal artery Category: Medical (2) CKD stage 3b, GFR 30-44 ml/min: Code(s): N18.32 - Chronic kidney disease, stage 3b Category: Medical (3) HTN (hypertension): Code(s): I10 - Essential (primary) hypertension Category: Medical Qualifiers: Hypertension type: renovascular hypertension Qualified Code(s): I15.0 - Renovascular hypertension Plan Anna has progressive decline GFR likely due to renovascular disease which was confirmed by imaging. She has coronary artery disease as well as PAD. She is on aspirin and Plavix. There is no reason to suspect any cholesterol embolism. Her blood pressure is currently controlled with amlodipine. She maintains good hydration and avoids nonsteroidal anti-inflammatories. ( She was on Jardiance- was not agreeing with her as per patient). Her 24 hour urine for creatinine clearance showed GFR of 32 mls/ mt. No medication changes made today. Answered all questions and follow-up given Orders: Orders Calcium 4 Months I15.0 - Renovascular hypertension, I70.1 - Atherosclerosis of renal artery, N18.32 - Chronic kidney disease, stage 3b Blood Urea Nitrogen 4 Months I15.0 - Renovascular hypertension, I70.1 - Atherosclerosis of renal artery, N18.32 - Chronic kidney disease, stage 3b Creatinine 4 Months I15.0 - Renovascular hypertension, I70.1 - Atherosclerosis of renal artery, N18.32 - Chronic kidney disease, stage 3b Phosphorus 4 Months I15.0 - Renovascular hypertension, I70.1 - Atherosclerosis of renal artery, N18.32 - Chronic kidney disease, stage 3b Parathyroid Hormone Intact 4 Months I15.0 - Renovascular hypertension, I70.1 - Atherosclerosis of renal artery, N18.32 - Chronic kidney disease, stage 3b Vitamin D 25-OH Total 4 Months I15.0 - Renovascular hypertension, I70.1 - Atherosclerosis of renal artery, N18.32 - Chronic kidney disease, stage 3b Complete Blood Count Auto Diff 4 Months I15.0 - Renovascular hypertension, I70.1 - Atherosclerosis of renal artery, N18.32 - Chronic kidney disease, stage 3b Electrolytes 4 Months I15.0 - Renovascular hypertension, I70.1 - Atherosclerosis of renal artery, N18.32 - Chronic kidney disease, stage 3b Coding Level of Care Code Est Pt Level 4 (79655) Diagnoses Renal artery stenosis, [place] I70.1 CKD stage 3b, GFR 30-44 ml/min N18.32 Renovascular hypertension I15.0 Hypertension type: renovascular hypertension
[2024-12-29 09:48] VITALS: BP 138/60; BMI 26.5
== END 2024-12-29 10:15 | disposition home or self-care (01) ==
LOC: HO.HKAS 09:41
PROVIDERS: PCP Family Medicine; Visit Provider Internal Medicine Nephrology
DX: I70.1 Atherosclerosis of renal artery (principal); I13.10 Hypertensive heart and chronic kidney disease without heart failure, with stage 1 through stage 4 chronic kidney disease, or unspecified chronic kidney disease; N18.32 Chronic kidney disease, stage 3b
CPT/HCPCS: 99214

== ENCOUNTER → 2024-12-29 09:40 | Outpatient (BNVA) | payer MEDICARE, SELFPAY | PROVIDERS: PCP Family Medicine; Visit Provider Internal Medicine Nephrology | DX: I25.10 Atherosclerotic heart disease of native coronary artery without angina pectoris (principal); I15.0 Renovascular hypertension; R09.89 Other specified symptoms and signs involving the circulatory and respiratory systems; I12.9 Hypertensive chronic kidney disease with stage 1 through stage 4 chronic kidney disease, or unspecified chronic kidney disease; I73.9 Peripheral vascular disease, unspecified; I70.1 Atherosclerosis of renal artery; N18.32 Chronic kidney disease, stage 3b; Z79.899 Other long term (current) drug therapy | CPT/HCPCS: 99212 ==

== ENCOUNTER 2024-12-29 13:08 | Outpatient (AMB) | payer MEDICARE, SELFPAY ==
[2024-12-29 13:28] VITALS: BP 130/82; PULSE 86; BMI 26.2
--- NOTE | 2024-12-29 13:28 | MHC.OFFVIS ---
Vital Signs 12/29/24 13:28 Height 5 ft 7 in Weight 167 lb 8.821 oz BMI 26.2 BP 130/82 Blood Pressure Location Lt brachial Position Sitting Pulse 86 Intake Visit Reasons: 6 mth f/up Intake Note: 6 month follow-up feeling good Flask Pusher Required: No Allergies metformin Allergy (Unknown, Verified 12/29/24 09:48) gi barium sulfate [From Eneset 2] Adverse Reaction (Mild, Verified 12/29/24 09:48) Stomach Upset carvedilol Adverse Reaction (Mild, Verified 12/29/24 09:48) Stomach Upset hydroxyzine Adverse Reaction (Mild, Verified 12/29/24 09:48) Stomach Upset metoprolol Adverse Reaction (Mild, Verified 12/29/24 09:48) Cough lisinopril Adverse Reaction (Unknown, Verified 12/29/24 09:48) cough Statins Support Allergy (Unknown, Uncoded 07/19/24 14:11) mx Medication List - Last Reconciled 12/29/24 by Severino Melendez MD amlodipine 2.5 mg PO BID 90 days aspirin 81 mg PO DAILY clopidogrel 75 mg PO DAILY gabapentin 600 mg PO DAILY glimepiride 4 mg PO DAILY HPI Comments Details: Anna comes for follow-up. He has not had any. Last echocardiogram showed near normal LV ejection fraction. Echocardiogram from yesterday is pending. She denies any exertional chest pain syndrome. Denies any orthopnea, PND, leg edema. Denies any lightheadedness, syncope. No mesenteric ischemic symptoms. Denies any clear symptoms of claudication. Currently not on any lipid lowering therapy. Takes dual antiplatelet therapy. Diabetes under your care. [facility] Medical History Exertional angina Hyperlipidemia HTN (hypertension) PVD (peripheral vascular disease) Diabetes mellitus CAD (coronary artery disease) Surgical History Hx of appendectomy Stented coronary artery Social History Household Members: Children Housing: House Alcohol intake: never Patient Tobacco Use Status: Former Tobacco user Review of Systems Const Denies chills, Denies fatigue, Denies fever(s), Denies frequent falls, Denies weakness, Denies weight gain and Denies weight loss ENT Denies dizziness Card Denies chest pain, Denies leg edema, Denies lightheadedness, Denies palpitations, Denies dyspnea, Denies dyspnea on exertion, Denies orthopnea and Denies other (loss of consciousness) Resp Denies cough, Denies dyspnea and Denies dyspnea on exertion GI Denies hematochezia and Denies change in stool character Musc Denies abnormal gait, Denies muscle weakness, Denies numbness, Denies radiating pain into limb and Denies tingling Neuro Denies abnormal gait, Denies dizziness, Denies frequent falls, Denies numbness, Denies tingling and Denies weakness Endo Denies fatigue and Denies palpitations Physical Exam Vital Signs: Last Vital Signs Pulse 86 12/29/24 13:28 BP 130/82 12/29/24 13:28 BMI result Body Mass Index 26.2 Const General: cooperative, healthy appearing, comfortable and no acute distress Orientation/consciousness: patient oriented x3 Neck Neck: Yes normal visual inspection and Yes no JVD Carotids: bruit bilateral Resp Effort & Inspection: normal respiratory effort Auscultation: clear to auscultation bilaterally, no crackles, no rales, no rhonchi and no wheezes Cardio Jugular venous distension: no JVD Rate: regular rate Rhythm: regular rhythm Heart sounds: S1 normal heart sound present, S2 normal heart sound present, no gallops, no murmurs and no rubs Bruits: carotid bruit bilaterally GI Inspection: Yes normal to inspection Neuro General: patient oriented x3 Extrem General: Yes normal to inspection Psych Appearance: grossly normal Mental Status: mental status grossly normal Speech and movement: Normal speech and movement present Assessment & Plan Assessment & Plan (1) CAD (coronary artery disease): Code(s): I25.10 - Atherosclerotic heart disease of [place] coronary artery without angina pectoris Category: Medical Plan: Diffuse and significant atherosclerotic vascular disease with CAD with no recent symptoms of angina. She is diffusely atherosclerotic in his bilateral carotid bruits. Will obtain carotid duplex and further treatment based on the findings and she usually follows with Dr. Regan from vascular surgical perspective. Continue aggressive risk factor modification. Unfortunately she can not tolerate any lipid modification with statins. PCSK9 inhibitor therapy was not approved for her by her insurance. Unfortunately remains at high risk for atherosclerotic and thrombotic events. Currently on dual antiplatelet therapy which will be continued. (2) HTN (hypertension): Code(s): I10 - Essential (primary) hypertension Category: Medical Qualifiers: Hypertension type: renovascular hypertension Qualified Code(s): I15.0 - Renovascular hypertension Plan: Hypertension which is well optimized on low-dose amlodipine therapy. Continue the same. Continue current regimen. Advised to monitor blood pressure at home maintain a log. Goal blood pressure less than 140/80. Low-salt diet was discussed advised to maintain adequate hydration. Orthostatic precautions were discussed. Will follow up in the clinic in 1 year's time, sooner p.r.n.. Thank you for allowing me to partake in his care Orders: Orders US carotid duplex BI Today R09.89 - Other specified symptoms and signs involving the circulatory and respiratory systems Coding Level of Care Code Est Pt Level 4 (13437) Complex EM visit Add On G2211 Diagnoses CAD (coronary artery disease) I25.10 Renovascular hypertension I15.0 Hypertension type: renovascular hypertension
== END 2024-12-29 14:11 | disposition home or self-care (01) ==
LOC: HO.HCS 13:09
PROVIDERS: PCP Family Medicine; Visit Provider Internal Medicine Cardiovascular Disease
DX: I25.10 Atherosclerotic heart disease of native coronary artery without angina pectoris (principal); I15.0 Renovascular hypertension
CPT/HCPCS: 99214; G2211

== ENCOUNTER 2025-01-24 10:07 | Outpatient (REF) | payer MEDICARE, SELFPAY ==
--- NOTE | ~2025-01-24 | US_ITS ---
EXAMINATION: US EXTRACRANIAL CAROTID DUPLEX, BILATERAL CLINICAL INFORMATION: Other specified symptoms and signs involving the circulation. Carotid bruit. COMPARISON: None available. TECHNIQUE: Real-time ultrasound and Doppler techniques (integrating B-mode 2-D vascular images, Doppler spectral analysis and color-flow Doppler imaging) were utilized to interrogate the extracranial carotid arteries, the vertebral arteries and proximal subclavian arteries bilaterally. The degree of stenosis is determined by criteria similar to NASCET. FINDINGS: Right Side: 1. There is bulky calcified atherosclerotic plaque seen in the bifurcation/proximal ICA region. 2. The common carotid artery PSV proximally is 160 cm/s and distally 169 cm/s. 3. The proximal internal carotid artery velocities are 151 cm/s systolic and 41 cm/s diastolic. 4. The proximal external carotid artery PSV is 397 cm/s. 5. The vertebral artery shows antegrade flow. 6. The subclavian artery waveforms are biphasic with spectral broadening. Peak systolic velocity 278 cm/s. Left Side: 1. There is bulky mixed atherosclerotic plaque seen in the bifurcation/proximal ICA region. 2. The common carotid artery PSV proximally is 132 cm/s and distally 155 cm/s. 3. The proximal internal carotid artery velocities are 341 cm/s systolic and 65 cm/s diastolic. 4. The proximal external carotid artery PSV is 291 cm/s. 5. The vertebral artery shows antegrade flow. 6. The subclavian artery waveforms are biphasic. Spectral broadening. Peak systolic velocity 258 cm/s.. Arrhythmia present. US/US carotid duplex BI IMPRESSION: 1. RIGHT: Bulky calcified plaques. 50-79% stenosis by ultrasound criteria. 2. LEFT: Bulky mixed plaques. 50-79% stenosis by ultrasound criteria. High peak systolic velocities in both subclavian artery suggesting high degree stenosis. Arrhythmia. Electronically signed by: Kaleb Leyva MD 01/25/2025 10:12 AM EDT
--- OUTSIDE RECORDS SUMMARY | 2025-01-24 11:32 | XMS_ITS | Clinical Summary ---
Author Organization [facility] Address [address] [place] [address] Phone Care Team Providers Care Ict Developer Name Role Phone Glen Rose MD Primary Care Provider [phone] Allergies Active Allergy Reactions Criticality Noted Date Comments Hydroxyzine Unknown 10/22/2024 Lisinopril Unknown 10/22/2024 Metformin Anaphylaxis High 10/22/2024 Medications methocarbamoL (ROBAXIN) 750 mg tablet Take 1 tablet (750 mg total) by mouth 4 (four) times a day for 7 days. 28 each 10/22/2024 Active Active Problems No known active problems Social History Tobacco Use Types Packs/Day Years [...] Vaccines (1 of 2) 1992 RSV Immunization Adult Patients (1 - 1-dose 75+ series) 2017 Cholesterol Screening (Lipid Panel) 09/07/2022 Depression Screening 09/07/2022 Falls Risk Assessment 09/07/2022 Medicare Annual Wellness Visit 09/07/2022 Osteoporosis Screening (Bone Density Screening) 09/07/2022 Social Influencers of Health Screening 09/07/2022 COVID-19 Vaccine ( season) 2024 11/10/2022, 01/30/2022, 07/16/2021, Additional history exists Diabetes: Annual Urine Albumin-Creatinine Ratio (uACR) 10/22/2024 Diabetes: Blood Sugar Control Test (HGBA1C) 10/22/2024 Influenza Vaccine (Season Ended) 2025 Diabetes: Annual GFR (Glomerular Filtration Rate) 10/22/2025 [...] age to complete this topic Meningococcal B Vaccine Aged Out No l onger eligible based on patient's age to complete this topic RSV Immunization Patients Under 20 months Aged Out No longer eligible based on patient's age to complete this topic Varicella Vaccines Aged Out No longer eligible based on patient's age to complete this topic Procedures Procedure Name Priority Date/Time Associated Diagnosis Comments BASIC METABOLIC PANEL STAT 10/22/2024 4:08 PM EST from Last 3 Months or Most Recently Relevant to Health Maintenance Results * (ABNORMAL) Basic metabolic panel (10/22/2024 4:08 PM EST) Sodium 134 133 - 145 mmol/L LAB CHEMISTRY METHOD 10/22/2024 4:46 PM [facility] Potassium 4.4 3.5 - 5.5 mmol/L LAB CHEMISTRY METHOD 10/22/2024 4:46 PM [facility] Chloride 103 96 - 110 mmol/L LAB CHEMISTRY METHOD 10/22/2024 4:46 PM [facility] CO2 24 21 - 32 mmol/L LAB CHEMISTRY METHOD 10/22/2024 4:46 PM [facility] Anion Gap 7 3 - 11 LAB CHEMISTRY METHOD 10/22/2024 4:46 PM [facility] Glucose 151(H) 70 - 100 mg/dL LAB CHEMISTRY METHOD 10/22/2024 4:46 PM [facility] BUN 37(H) 5 - 25 mg/dL LAB CHEMISTRY METHOD 10/22/2024 4:46 PM [facility] Creatinine 2.02(H) 0.50 - 1.10 mg/dL LAB CHEMISTRY METHOD 10/22/2024 4:46 PM [facility] eGFR 24(L) >=60 mL/min/1. 73m2 LAB CHEMISTRY METHOD 10/22/2024 4:46 PM [facility] Comment:Calculation based on the??Chronic Kidney Disease Epidemiology Collaboration (CKD-EPI) equation refit??without adjustment for race. BUN/Creatinine Ratio 18.3 LAB CHEMISTRY METHOD 10/22/2024 4:46 PM EST [facility] Calcium 9.5 8.5 - 10.5 mg/dL LAB CHEMISTRY METHOD 10/22/2024 4:46 PM EST [facility] Blood Venous blood specimen / Unknown Venipuncture / Unknown 10/22/2024 4:08 PM EST 10/22/2024 4:23 PM EST us Roseline FREDERICK LAB BLOOD ORDERABLES Final Result [facility] ([facility]) [facility] [address] [place] [address], from Last 3 Months or Most Recently Relevant to Health Maintenance Insurance [employer] MEDICARE Advance Directives Documents on File Type Date Recorded Patient Blender Snuff Expl anation DNR (Do Not Resuscitate) 10/22/2024 4:31 PM Power of Reporting Developer 10/22/2024 4:29 PM Healthcare Agents on File Name Relationship Healthcare Agent [facility] Communication Tony Herrera Son Health Care Agent Grupo Bergeron [facility] Car e Agent Care Teams Ict Developer Relationship Specialty Start Date End Date Glen Rose MD [address] [place] [address] [place] [address] PCP - General Internal Medicine 10/05/12
--- OUTSIDE RECORDS SUMMARY | 2025-01-24 11:32 | XMS_ITS | Patient Health Record ---
Author Organization [facility] Address [address] [place] [address] Care Team Providers Care College [employer] Dean Name Role Phone Milton SHERMAN, Glen Primary Care Provider Unavailab Bull Greenwood Unavailable [phone] Allergies Allergen (clinical drug ingredient) Drug/Non Drug Allergy documented on EMR Reaction Allergy Type Onset Date Status hydroxyzine Hydroxyzine Unknown Drug Allergy Act paco lisinopril Lisinopril Unknown Drug Allergy Activ e metformin Metformin Unknown Drug Allergy Active Substance with 7-mjthcjz-5-methylgluta ryl-coenzyme A reductase inhibitor mechanism of action [...] Problem Acquired hammer toe of right foot ([id number] ) Other hammer toe(s) (acquired), right foot (M20.41) Active confirmed Problem Acquired hammer toe of left foot ([id number] ) Other hammer toe(s) (acquired), left foot (M20.42) Active confirmed Problem Polyneuropathy due to type 2 diabetes mellitus (868404435) Type 2 diabetes mellitus with diabetic polyneuropathy (E11.42) Active confirmed Plan Of Treatment No Information Insurance Providers Payer Name Payer Address Payer Phone Subscriber Number Group Number Insured Name Patient Relationship to Insured Coverage Start Date Coverage End Date [employer] Medicare [id number] [address] [address] [place] [address] [id number] Anna Herrera Self - patient is the insured Medical (General) History Medical History History ICD Code Diabetic High blood pressure Numbness Surgical History Surgery Date(Month/Year) stents 01/03/2018 appendectomy 1968
--- OUTSIDE RECORDS SUMMARY | 2025-01-24 11:32 | XMS_ITS | Continuity of Care Document ---
Author Name [facility] Organization [facility] Care Team Providers Care Receiving Distribution Station Operator Name Role Phone [facility] Unavailable Unavailable Problems Combined list of problems from Department of Defense and Veterans Affairs facilities. It does not include entries that were removed or entered in error. Problem Status Onset Date Problem Type Date of Resolution Comments Source Diagnosis: ICD-10-CM Z71.0 Prsn encntr hlth serv to consult on behalf of another person Active Diagnosis [facility] Immunizations Combined list of available immunizations from the Department of Defense and Veterans Affairs facilities. Immunization Series Date Given Administered By Site Reaction Lot Number CVX Code Drug Waste Management Engineer Status Comments Source COVID-19 (MODERNA), MRNA, LNP-S, PF, 100 MCG/0.5 ML DOSE 2 2020 207 complet ed MOD; [id number]; IELD COVID-19 (MODERNA), MRNA, LNP-S, PF, 100 MCG/0.5 ML DOSE 1 2020 207 complet ed MOD; [id number]; IELD Encounters Combined list of: 1) Encounters from Department of Veterans Affairs facilities going backup to the last 18 months, not all VA inpatient encounters are included; 2) Encounters from the Department of Defense facilities going backup to 280 months. Location Location Details Encounter Type Encounter Number Reason For Visit Attending Provider ADM Date DC Date Status Disposition Source [facility] (6[facility]REAS SESSMENT [id number] Diagnos is: ICD-10- CM Z71.0 Prsn encntr hlth serv to consult on behalf of another person Gabriele WADE 09/[address] [facility] (6[facility] Outpatient Encounter [id number] 12/21 /2023 [facility] PRO PHONE CALL 5-10 MIN [id number] Diagnos is: ICD-10- CM Z71.0 Prsn encntr hlth serv to consult on behalf of another person [place] 10/14 [facility] PRO PHONE CALL 5-10 MIN [id number] Diagnos is: ICD-10- CM Z71.0 Prsn encntr hlth serv to consult on behalf of another person [place] E 10/22 [facility] PRO PHONE CALL 5-10 MIN [id number] Diagnos is: ICD-10- CM Z71.0 Prsn encntr hlth serv to consult on behalf of another person [place] E 10/28 [facility] PRO PHONE CALL 5-10 MIN [id number] Diagnos is: ICD-10- CM Z71.0 Prsn encntr hlth serv to consult on behalf of another person [place] E 10/30 [facility] HC PRO PHONE CALL 5-10 MIN [id number] Diagnos is: ICD-10- CM Z71.0 Prsn encntr hlth serv to consult on behalf of another person [place] E 12/14 [facility]
== END 2025-01-24 10:08 | disposition home or self-care (01) ==
LOC: HO.HMGCX 10:07
PROVIDERS: PCP Family Medicine; Visit Provider Internal Medicine Cardiovascular Disease
DX: R09.89 Other specified symptoms and signs involving the circulatory and respiratory systems (principal)
CPT/HCPCS: 93880

== ENCOUNTER → 2025-01-24 10:09 | Outpatient (BNV) | payer MEDICARE, SELFPAY | PROVIDERS: PCP Family Medicine; Visit Provider Radiology Diagnostic Radiology | DX: I65.23 Occlusion and stenosis of bilateral carotid arteries (principal) | CPT/HCPCS: 93880 ==

== ENCOUNTER → 2025-03-10 08:35 | Outpatient (REF) | payer MEDICARE, SELFPAY ==
--- NOTE | ~2025-03-10 | NM_ITS ---
Lexiscan Myocardial perfusion study Indication: Coronary artery disease to evaluate for myocardial ischemia Technique: The patient was brought in for a Lexiscan perfusion study on March 10, 2025 and was injected 0.4 mg of Lexiscan intravenously. Within a minute of this injection 25 mCi of sestamibi was given intravenously. Images were obtained using the SPECT gamma camera interlaced with the gating device. Images were obtained in supine position. Resting perfusion study was performed on March 13, 2025. Patient was administered 25 mCi of sestamibi intravenously at rest. Images were then obtained in supine position. Images obtained without without CT attenuation. Total DLP 76 mGy-cm. Images were processed with the software and compared side to side in short axis, horizontal long axis and vertical long axis views. Findings: The stress perfusion study showed nonattenuated images show mildly reduced uptake in the basal inferior wall as well as mildly reduced uptake in the anterolateral (distal anterior wall of the LV myocardium. Attenuated corrected images show mildly reduced uptake in the distal anterior and adjacent septal wall of the LV myocardium.. The gated study shows normal LV systolic function with calculated LVEF of 53%. LV cavity is normal in size. The gated study shows normal systolic wall thickening and contraction of segments. Resting study shows nonattenuated images show improved uptake in the anterolateral as well as the distal anterior wall of the LV myocardium. There was persistently moderately reduced uptake compared to stress perfusion study the basal inferior wall. Attenuated corrected images show improved uptake in the anterior chest wall of the LV myocardium.. Gating at rest reveals normal systolic wall motion with ejection fraction at greater than 50%. The findings are consistent with fixed basal inferior wall defect which may suggest nontransmural infarct. There is mild intensity reversible defect of the distal anterior and adjacent septal wall suggestive of ischemia in distal LAD territory. NM/NM cardiolite stress test Impression: 1. Myocardial perfusion imaging study shows mild intensity ischemia in the LAD territory and nontransmural infarct of the basal inferior wall 2. Gated LVEF is 53% 3. Transient ischemic dilatation not present Nondiagnostic changes on EKG. Electronically signed by: Severino Melendez MD 03/13/2025 03:54 PM EDT
--- NOTE | 2025-03-10 08:37 | CA_ITS ---
Acquisition Time: 2025-03-10 09:19:31 Total Exercise Time: 00:02:00 Test Indications: CAD Medications: AMLODIPINE ASA Protocol: LEXISCAN Max HR: 102 BPM 73% of Pred: 138 BPM Max BP: 134/60 mmHG Max Work Load: 1.0 METS Pharmacological stress test with Lexiscan while pt marches in her chair, with reports of lightheadedness, with isolated PVCs, with normotensive response to injection. Nondiagnostic EKG for ischemia. In recovery, pt treated with IVP Aminophylline 75 mg to reverse Lexiscan after which pt feeling back to baseline. Nuclear images pending. Test reviewed with Dr. Perez. Referred By: Severino Melendez Electronically Signed By: Kye Becker
--- OUTSIDE RECORDS SUMMARY | 2025-03-10 08:47 | XMS_ITS | Continuity of Care Document ---
Author Name [facility] Organization [facility] Care Team Providers Care Cottage Cheese Maker Name Role Phone [facility] Unavailable Unavailable Problems Combined list of problems from Department of Defense and Veterans Affairs facilities. It does not include entries that were removed or entered in error. Problem Status Onset Date Problem Type Date of Resolution Comments Source Diagnosis: ICD-10-CM Z71.0 Prsn encntr hlth serv to consult on behalf of another person Active Diagnosis [facility] Immunizations Combined list of available immunizations from the Department of Defense and Veterans Affairs facilities. Immunization Series Date Given Administered By Site Reaction Lot Number CVX Code Drug Cvir Tech Status Comments Source COVID-19 (MODERNA), MRNA, LNP-S, PF, 100 MCG/0.5 ML DOSE 2 2020 207 complet ed MOD; [id number]; IELD COVID-19 (MODERNA), MRNA, LNP-S, PF, 100 MCG/0.5 ML DOSE 1 2020 207 complet ed MOD; [id number]; IELD Encounters Combined list of: 1) Encounters from Department of Veterans Affairs facilities going backup to the last 18 months, not all VA inpatient encounters are included; 2) Encounters from the Department of Defense facilities going backup to 280 months. Location Location Details Encounter Type Encounter Number Reason For Visit Attending Provider ADM Date DC Date Status Disposition Source [facility] ([facility]AS SESSMENT [id number] Diagnos is: ICD-10- CM Z71.0 Prsn encntr hlth serv to consult on behalf of another person Gabriele WADE 09/14 [facility] Outpatient Encounter [id number] 12/21 /2023 [facility] HC PRO PHONE CALL 5-10 MIN [id number] Diagnos is: ICD-10- CM Z71.0 Prsn encntr hlth serv to consult on behalf of another person [place] 10/14 [facility] HC PRO PHONE CALL 5-10 MIN [id number] Diagnos is: ICD-10- CM Z71.0 Prsn encntr hlth serv to consult on behalf of another person [place] E 10/22 [facility] HC PRO PHONE CALL 5-10 MIN [id number] Diagnos is: ICD-10- CM Z71.0 Prsn encntr hlth serv to consult on behalf of another person [place] E 10/28 [facility] HC PRO PHONE CALL 5-10 MIN [id number] Diagnos is: ICD-10- CM Z71.0 Prsn encntr hlth serv to consult on behalf of another person [place] E 10/30 [facility] HC PRO PHONE CALL 5-10 MIN [id number] Diagnos is: ICD-10- CM Z71.0 Prsn encntr hlth serv to consult on behalf of another person [place] E 12/14 [facility]
== END ==
LOC: HO.CARD 08:35
PROVIDERS: PCP Family Medicine; Visit Provider Internal Medicine Cardiovascular Disease
DX: I25.10 Atherosclerotic heart disease of native coronary artery without angina pectoris (principal); I25.5 Ischemic cardiomyopathy
CPT/HCPCS: 78452; 93017; A9500; J0280; J2785

== ENCOUNTER → 2025-03-10 08:37 | Outpatient (BNV) | payer MEDICARE, SELFPAY | PROVIDERS: PCP Family Medicine | DX: I49.3 Ventricular premature depolarization (principal) | CPT/HCPCS: 78452; 93016; 93018 ==

== ENCOUNTER → 2025-03-30 10:51 | Outpatient (BNVA) | payer MEDICARE, SELFPAY | PROVIDERS: PCP Family Medicine; Visit Provider Surgery Vascular Surgery | DX: Z13.89 Encounter for screening for other disorder (principal) ==

== ENCOUNTER 2025-04-05 10:51 | Outpatient (REF) | payer MEDICARE, SELFPAY ==
--- OUTSIDE RECORDS SUMMARY | 2023-12-15 04:45 | XMS_ITS | Continuity of Care Document ---
Author Name [facility] Organization [facility] Care Team Providers Care Thermostat Mechanic Name Role Phone [facility] Unavailable Unavailable Problems Combined list of problems from Department of Defense and Veterans Affairs facilities. It does not include entries that were removed or entered in error. Problem Status Onset Date Problem Type Date of Resolution Comments Source Diagnosis: ICD-10-CM Z71.0 Prsn encntr hlth serv to consult on behalf of another person Active Diagnosis [facility] Immunizations Combined list of available immunizations from the Department of Defense and Veterans Affairs facilities. Immunization Series Date Given Administered By Site Reaction Lot Number CVX Code Drug Equipment Operator/Laborer Status Comments Source COVID-19 (MODERNA), MRNA, LNP-S, PF, 100 MCG/0.5 ML DOSE 2 2020 207 complet ed MOD; [id number]; IELD COVID-19 (MODERNA), MRNA, LNP-S, PF, 100 MCG/0.5 ML DOSE 1 2020 207 complet ed MOD; [id number]; IELD Encounters Combined list of: 1) Encounters from Department of Veterans Affairs facilities going backup to the last 18 months, not all VA inpatient encounters are included; 2) Encounters from the Department of Defense facilities going backup to 280 months. Location Location Details Encounter Type Encounter Number Reason For Visit Attending Provider ADM Date DC Date Status Disposition Source [facility] ([facility]) [facility] ASSMT/REAS SESSMENT [id number] Diagnos is: ICD-10- CM Z71.0 Prsn encntr hlth serv to consult on behalf of another person Gabriele WADE 09/14 [facility] (6[facility]GE) [facility] Outpatient Encounter [id number] 12/21 /2023 [facility] HC PRO PHONE CALL 5-10 MIN [id number] Diagnos is: ICD-10- CM Z71.0 Prsn encntr hlth serv to consult on behalf of another person [place] 10/14 [facility] HC PRO PHONE CALL 5-10 MIN [id number] Diagnos is: ICD-10- CM Z71.0 Prsn encntr hlth serv to consult on behalf of another person [place] E 10/22 [facility] HC PRO PHONE CALL 5-10 MIN [id number] Diagnos is: ICD-10- CM Z71.0 Prsn encntr hlth serv to consult on behalf of another person [place] E 10/28 [facility] HC PRO PHONE CALL 5-10 MIN [id number] Diagnos is: ICD-10- CM Z71.0 Prsn encntr hlth serv to consult on behalf of another person [place] E 10/30 [facility] HC PRO PHONE CALL 5-10 MIN [id number] Diagnos is: ICD-10- CM Z71.0 Prsn encntr hlth serv to consult on behalf of another person [place] E 12/14 [facility]
--- NOTE | ~2025-04-05 | US_ITS ---
EXAMINATION: Noninvasive assessment of the bilateral lower extremities with ARTERIAL DUPLEX, ANKLE BRACHIAL INDICES (ABIs), and PULSE VOLUME RECORDINGS (PVRs). Spectral color Doppler analysis of the abdominal aorta and iliac arteries with grayscale technique. CLINICAL INFORMATION: Peripheral vascular disease, unspecified. TECHNIQUE: Duplex Doppler techniques with waveform analysis and measurement of velocities in the bilateral common femoral, profunda femoris, superficial femoral, popliteal and tibial arteries were performed. Additionally, ankle pulse volume recordings, ankle pressure measurements and ankle brachial indices were obtained of the lower extremity arterial system bilaterally. The study was performed only at rest. COMPARISON: June 22, 2024. FINDINGS: Arrhythmia episodes. DIRECT DUPLEX DOPPLER FINDINGS: RIGHT LEG: Common femoral artery: 93 cm/s, phasicity: Biphasic. Profunda femoris artery: 201 cm/s, phasicity: Biphasic. Superficial femoral artery (proximal): 138 cm/s, phasicity: Monophasic. Superficial femoral artery (mid): 38 cm/s, phasicity: Monophasic. Superficial femoral artery (distal): 75 cm/s, phasicity: Monophasic. Popliteal artery: 44 cm/s, phasicity: Monophasic. Posterior tibial artery: 37 cm/s, phasicity: Monophasic. Peroneal artery: 21 cm/s, phasicity: Monophasic. Anterior tibial artery: 31 cm/s, phasicity: Monophasic. Dorsalis pedis artery: 27 cm/s, phasicity:Monophasic. LEFT LEG: Common femoral artery: 167 cm/s, phasicity: Monophasic. Profunda femoris artery: 60 cm/s, phasicity: Monophasic. Superficial femoral artery (proximal): 35 cm/s, phasicity: Monophasic. Superficial femoral artery (mid): No color Doppler flow. Superficial femoral artery (distal): No color Doppler flow. Popliteal artery: 65 cm/s, phasicity: Monophasic. Posterior tibial artery: 45 cm/s, phasicity: Monophasic. Peroneal artery: 25 cm/s, phasicity: Monophasic. Anterior tibial artery: 18 cm/s, phasicity: Monophasic. Dorsalis pedis artery: 23 cm/s, phasicity: Monophasic. BRACHIAL PRESSURES: Right: 146 Left: 158 ANKLE PRESSURES: Right: PT 83, DP 82 Left: PT 58, DP C4 ANKLE-BRACHIAL INDEX: Right: 0.53 Left: 0.41 ANKLE PVR WAVEFORMS: Right: Abnormal Left: Abnormal ABDOMINAL AORTA SPECTRAL ANALYSIS AND DIAMETER: Proximal segment, peak systolic velocity: 72 cm/s and 2.0 cm in diameter. Midsegment, peak systolic velocity: 72 cm/s and 2.0 cm in diameter. Distal segment peak systolic velocity: 86 cm/s and 1.9 cm in diameter. Right iliac artery: Common segment: 329 cm/s. External segment: 232 cm/s. Left iliac artery: Common segment: 195 cm/s. External segment: 184 cm/s. US/US abdominal aortic aneurysm IMPRESSION: Right leg: Severe inflow disease throughout the interrogated vessels. Left leg: Severe inflow disease throughout the interrogated vessels. Occluded superficial femoral artery old. No aneurysm or dissection, abdominal aorta. TIN Reference: - >1.4 = calcified vessels - 0.9 - 1.4 = normal - no significant arterial disease - 0.7 - 0.89 = mild peripheral arterial disease - 0.51 - 0.69 = moderate peripheral arterial disease - 0.50 = severe peripheral arterial disease - < .30 = critical arterial disease Electronically signed by: Kaleb Leyva MD 04/05/2025 02:53 PM EDT
--- OUTSIDE RECORDS SUMMARY | 2025-04-05 11:34 | XMS_ITS | Clinical Summary ---
Author Organization [facility] Address [address] [place] [address] Phone Care Team Providers Care Solar Crew Member Name Role Phone Glen Rose MD Primary Care Provider [phone] Allergies Active Allergy Reactions Criticality Noted Date [...] 78 10/22/2024 3:41 PM EST Temperature 36.9 C (98.4 F) 10/22/2024 3:41 PM EST Respiratory Rate 18 10/22/2024 3:41 PM EST [...] mmol/L LAB CHEMISTRY METHOD 10/22/2024 4:46 PM [facility] Potassium 4.4 3.5 - 5.5 mmol/L LAB CHEMISTRY METHOD 10/22/2024 4:46 PM [facility] Chloride 103 96 - 110 mmol/L LAB CHEMISTRY METHOD 10/22/2024 4:46 PM [facility] CO2 24 21 - 32 mmol/L LAB CHEMISTRY METHOD 10/22/2024 4:46 PM [facility] Anion Gap 7 3 - 11 LAB CHEMISTRY METHOD 10/22/2024 4:46 PM [facility] Glucose 151(H) 70 - 100 mg/dL LAB CHEMISTRY METHOD 10/22/2024 4:46 PM [facility] BUN 37(H) 5 - 25 mg/dL LAB CHEMISTRY METHOD 10/22/2024 4:46 PM [facility] Creatinine 2.02(H) 0.50 - 1.10 mg/dL LAB CHEMISTRY METHOD 10/22/2024 4:46 PM [facility] eGFR 24(L) >=60 mL/min/1. 73m2 LAB CHEMISTRY METHOD 10/22/2024 4:46 PM [facility] Comment:Calculation based on the Chronic Kidney Disease Epidemiology Collaboration (CKD-EPI) equation refit without adjustment for race. BUN/Creatinine Ratio 18.3 LAB CHEMISTRY METHOD 10/22/2024 4:46 PM EST [facility] Calcium 9.5 8.5 - 10.5 mg/dL LAB CHEMISTRY METHOD 10/22/2024 4:46 PM EST [facility] Blood Venous blood specimen / Unknown Venipuncture / Unknown 10/22/2024 4:08 PM EST 10/22/2024 4:23 PM EST us Roseline FREDERICK LAB BLOOD ORDERABLES Final Result [facility] ([facility]) [facility] [address] [place] [address], from Last 3 Months or Most Recently Relevant to Health Maintenance Insurance [employer] MEDICARE Advance Directives Documents on File 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
--- OUTSIDE RECORDS SUMMARY | 2025-04-05 11:34 | XMS_ITS | Patient Health Record ---
Author Organization [facility] Address [address] [place] [address] Care Team Providers Care Account Receivable Associate Name Role Phone Milton SHERMAN, Glen Primary Care Provider Unavailab Bull Greenwood Unavailable [phone] Allergies Allergen (clinical drug ingredient) Drug/Non Drug Allergy documented on EMR Reaction Allergy Type Onset Date Status hydroxyzine Hydroxyzine Unknown Drug Allergy Act paco lisinopril Lisinopril Unknown Drug Allergy Activ e metformin Metformin Unknown Drug Allergy Active Substance with 9-zoaxpli-1-methylgluta ryl-coenzyme A reductase inhibitor mechanism of action (substance) Statins Unknown Drug Allergy Active Reason For Referral No Information Medications Medication SIG (Take, Route, Frequency, Duration) Notes Start Date End Date Status Losartan Potassium 50 MG 1 tablet Orally Once a day; Duration: 30 day(s) Active Glimepiride 4 MG 1 tablet with breakf ast or the first main meal of the day Orally Once a day; Duration: 30 day(s) Active Extra Depth Orthopedic Shoes (1 Pair) with Customized Heat Molded Multidensity Innersoles (3 Pair) as directed Dx: NIDDM/Polyneuropathy (E11.42), Hammertoe Foot Deformity (M20.41,M20.42), Preulcerative Skin Lesion(s) (L85.1 01/22/2021 Active Clopidogrel Bisulfate 75 MG 1 tablet Orally Once a day; Duration: 30 day(s) Active amLODIPine Besylate 10 MG 1 tablet Orall y Once a day; Duration: 30 day(s) Active Aspirin 81 81 MG 1 tablet Orally Once a day; Duration: 30 day(s) Active Immunizations Vaccine Route Administration [...] Problem Acquired hammer toe of right foot (7626823888384968 ) Other hammer toe(s) (acquired), right foot (M20.41) Active confirmed Problem Acquired hammer toe of left foot (8172759446250342 ) Other hammer toe(s) (acquired), left foot (M20.42) Active confirmed Problem Polyneuropathy due to type 2 diabetes mellitus (837442384) Type 2 diabetes mellitus with diabetic polyneuropathy (E11.42) Active confirmed Plan Of Treatment No Information Insurance Providers Payer Name Payer Address Payer Phone Subscriber Number Group Number Insured Name Patient Relationship to Insured Coverage Start Date Coverage End Date [employer] Medicare [id number] [address] [address] [place] [address] [id number] Anna Herrera Self - patient is the insured Medical (General) History Medical History History ICD Code Diabetic High blood pressure Numbness Surgical History Surgery Date(Month/Year) stents 01/03/2018 appendectomy 1968
== END 2025-04-05 10:52 | disposition home or self-care (01) ==
LOC: HO.US 10:51
PROVIDERS: PCP Family Medicine; Visit Provider Surgery Vascular Surgery
DX: I73.9 Peripheral vascular disease, unspecified (principal); R94.39 Abnormal result of other cardiovascular function study; Z13.6 Encounter for screening for cardiovascular disorders
CPT/HCPCS: 76706; 93922; 93925

== ENCOUNTER → 2025-04-05 10:53 | Outpatient (BNV) | payer MEDICARE, SELFPAY | PROVIDERS: PCP Family Medicine; Visit Provider Radiology Diagnostic Radiology | DX: I70.8 Atherosclerosis of other arteries (principal); I73.9 Peripheral vascular disease, unspecified | CPT/HCPCS: 76706; 93922; 93925 ==

== ENCOUNTER 2025-04-10 11:22 | Outpatient (AMB) | payer MEDICARE, SELFPAY ==
--- OUTSIDE RECORDS SUMMARY | 2023-12-15 04:45 | XMS_ITS | Continuity of Care Document ---
Author Name [facility] Organization [facility] Care Team Providers Care Flat Sorting Machine Clerk Name Role Phone [facility] Unavailable Unavailable Problems Combined list of problems from Department of Defense and Veterans Affairs facilities. It does not include entries that were removed or entered in error. Problem Status Onset Date Problem Type Date of Resolution Comments Source Diagnosis: ICD-10-CM Z71.0 Prsn encntr hlth serv to consult on behalf of another person Active Diagnosis [facility] Immunizations Combined list of available immunizations from the Department of Defense and Veterans Affairs facilities. Immunization Series Date Given Administered By Site Reaction Lot Number CVX Code Drug Continuous Improvement Director Status Comments Source COVID-19 (MODERNA), MRNA, LNP-S, PF, 100 MCG/0.5 ML DOSE 2 2020 207 complet ed MOD; [id number]; IELD COVID-19 (MODERNA), MRNA, LNP-S, PF, 100 MCG/0.5 ML DOSE 1 2020 207 complet ed MOD; [id number]; IELD Encounters Combined list of: 1) Encounters from Department of Veterans Affairs facilities going backup to the last 18 months, not all VA inpatient encounters are included; 2) Encounters from the Department of Defense facilities going backup to 280 months. Location Location Details Encounter Type Encounter Number Reason For Visit Attending Provider ADM Date DC Date Status Disposition Source [facility] ([id number] ASSMT/REAS SESSMENT [id number] Diagnos is: ICD-10- CM Z71.0 Prsn encntr hlth serv to consult on behalf of another person Gabriele WADE 09/14 [facility] ([id number]) [facility] Outpatient Encounter [id number] 12/21 /2023 [facility] PRO PHONE CALL 5-10 MIN [id number] Diagnos is: ICD-10- CM Z71.0 Prsn encntr hlth serv to consult on behalf of another person [place] [place] 10/14 [facility] PRO PHONE CALL 5-10 MIN [id number] Diagnos is: ICD-10- CM Z71.0 Prsn encntr hlth serv to consult on behalf of another person [place] E 10/22 [facility] PRO PHONE CALL 5-10 MIN [id number] Diagnos is: ICD-10- CM Z71.0 Prsn encntr hlth serv to consult on behalf of another person [place] E 10/28 [facility] PRO PHONE CALL 5-10 MIN [id number] Diagnos is: ICD-10- CM Z71.0 Prsn encntr hlth serv to consult on behalf of another person [place] E 10/30 [facility] PRO PHONE CALL 5-10 MIN [id number] Diagnos is: ICD-10- CM Z71.0 Prsn encntr hlth serv to consult on behalf of another person [place] E 12/14 [facility]
--- NOTE | 2025-04-10 11:20 | A.OFFPC_ITS ---
Vital Signs 04/10/25 11:29 Height 5 ft 7 in Weight 176 lb BMI 27.6 BP 132/74 Blood Pressure Location Rt brachial Position Sitting Pulse 79 Pulse Source Pulse Oximeter Temp 97.4 F Temp Source Axillary Pulse Oximetry (%) 95 Oxygen Delivery Method Room Air Intake Visit Reasons: 4 MO F/UP - [place] PT - NEEDS Chicho MILLER Philanthropy Officer Required: No Accompanied by: Self / Same As Patient Allergies metformin Allergy (Unknown, Verified 04/10/25 14:08) gi barium sulfate (From Eneset 2) Adverse Reaction (Mild, Verified 04/10/25 14:08) Stomach Upset carvedilol Adverse Reaction (Mild, Verified 04/10/25 14:08) Stomach Upset hydroxyzine Adverse Reaction (Mild, Verified 04/10/25 14:08) Stomach Upset metoprolol Adverse Reaction (Mild, Verified 04/10/25 14:08) Cough lisinopril Adverse Reaction (Unknown, Verified 04/10/25 14:08) cough Statins Support Allergy (Unknown, Uncoded 04/10/25 14:08) mx Medication List - Last Reconciled 04/10/25 by Branden Siegel MD amlodipine 2.5 mg PO BID aspirin 81 mg PO DAILY clopidogrel 75 mg PO DAILY gabapentin 600 mg PO DAILY glimepiride 4 mg PO DAILY Tobacco use date assessed: 04/10/25 Fall risk assessment: No Falls in past year Last assessed Fall Risk: 04/10/25 Dental Screening Dental Screen Date: 04/10/25 Did you have a dental visit in the last 12 months?: No Did you have a dental problem in the last 6 months where you did not have access to dental care?: No [facility] Medical History Exertional angina Hyperlipidemia HTN (hypertension) PVD (peripheral vascular disease) Diabetes mellitus CAD (coronary artery disease) Surgical History Hx of appendectomy Stented coronary artery Family History Mother No problems noted. Father No problems noted. Social History Household Members: Children Housing: House Alcohol intake: never Patient Tobacco Use Status: Former Tobacco user e-Cigarette/Vaping Use: Former Use service: No Current occupational status: retired Cognitive needs: No Hearing needs: No Vision needs: Yes (rx glasses) Questionnaire PHQ-9 Over the last 2 weeks, how often have you been bothered by any of the following problems? 1. Little interest or pleasure in doing things: not at all 2. Feeling down, depressed, or hopeless: not at all 3. Trouble falling or staying asleep, or sleeping too much: not at all 4. Feeling tired or having little energy: not at all 5. Poor appetite or overeating: not at all 6. Feeling bad about yourself - or that you are a failure or have let yourself or your family down: not at all 7. Trouble concentrating on things, such as reading the newspaper or watching television: not at all 8. Moving or speaking so slowly that other people could have noticed. Or the opposite - being so fidgety or restless that you have been moving around a lot more than usual: not at all 9. Thoughts that you would be better off or of hurting yourself in some way: not at all Total score: 0 Source: Developed by Drs. August Melendez, Anna Cedeño, Mayank Villanueva and colleagues, with an educational nikita from [employer]. Thrive Questionnaire Date Thrive assessed: 04/10/25 I am a: Patient Within the past 12 months, did the food you bought not last and you didn't have the money to get more?: Never true Within the past 12 months, did you worry whether your food would run out before you got money to buy more?: Never true Do you have trouble paying for medicines?: No Do you have trouble getting transportation to medical appointments?: No Do you have trouble paying your heating and electricity bill?: No Do you have trouble taking care of your child, family member or friend?: No Do you have trouble with day-to-day activities such as bathing, preparing meals, shopping, managing finances, etc.?: No Are you currently unemployed and looking for a job?: No Are you interested in more education?: No THRIVE Score: 0 AUDIT C Alcohol Use Questionnaire (AUDIT-C) 1. How often do you have a drink containing alcohol?: Never 3. How often do you have six or more drinks on one occasion?: Never Total Score: 0 RUSSEL-7 AMB Questionnaire RUSSEL-7 Date RUSSEL - 7 assessed: 04/10/25 Feeling nervous, anxious, or on edge: 0 = Not at all Not being able to stop or control worryin = Not at all Worrying too much about different things: 0 = Not at all Trouble relaxin = Not at all Being so restless that it is hard to sit still: 0 = Not at all Becoming easily annoyed or irritable: 0 = Not at all Feeling afraid as if something awful might happen: 0 = Not at all Total RUSSEL-7 score (0-4 normal; 5-9 mild; 10-14 moderate; 15-21 severe): 0 Source: Developed by Drs. August Melendez, Anna Cedeño, Mayank Villanueva and colleagues, with an educational nikita from [employer]. Physical exam (Primary Care) Vital Signs: Last Vital Signs Temp 97.4 F 04/10/25 11:29 Pulse 79 04/10/25 11:29 BP 132/74 04/10/25 11:29 Pulse Ox 95 04/10/25 11:29 Oxygen Delivery Method Room Air 04/10/25 11:29 BMI result Body Mass Index 27.6 Tobacco/Smoking Status: Tobacco use Status Tobacco use date assessed 04/10/25 04/10/25 11:22 Patient Tobacco Use Status Former Tobacco user 04/10/25 11:22 e-Cigarette/Vaping Use Former Use 04/10/25 11:22 PHQ-9: PHQ-9 Score PHQ-9: Total score 0 04/10/25 11:22 Thrive Assessment: Date of Thrive Assessment Date Thrive assessed 04/10/25 04/10/25 11:22 Coding Level of Care Code New Pt Level 4 (27036) Complex EM visit Add On G2211 Diagnoses Diabetes mellitus E11.9 Assessment & Plan Assessment & Plan (1) Diabetes mellitus: Code(s): E11.9 - Type 2 diabetes mellitus without complications Category: Medical Plan: History of Present Illness - The patient is an 84-year-old female presenting with a wellness visit and management of chronic conditions. - Reports a history of a split disc since October, with ongoing discomfort and a recurrence of symptoms in February. - Reports visual impairment at night, with difficulty adjusting vision but denies halos. - Manages her own finances and grocery shopping, though limited by her condition. - Compliant with medications, no refills needed. - Blood work planned for A1c and cholesterol levels. Social History - Lives alone and manages her own finances and grocery shopping, though she notes limitations due to her condition. Review of Systems - Musculoskeletal: Reports ongoing discomfort from a split disc. - Ophthalmologic: Reports visual impairment at night, denies halos. - Gastrointestinal: Denies abdominal pain. Physical Exam General: Cooperative and healthy appearing Nutritional Appearance: Well nourished Orientation/consciousness: Patient oriented x3 Limitations: No limitations Head: Normal to inspection General: Appearance normal, both eyes and all related structures Neck: Normal visual inspection Chest: Normal palpation of entire chest wall Respiratory: N ormal respiratory effort Neurology: Patient oriented x3, but reports difficulty with night vision and adjusting eyes at night. Results Plan 1. Split Disc - Monitor symptoms and manage discomfort as needed. 2. Visual Impairment At Night - Recommend seeing an cobol developer for further evaluation. 3. Preventative Care: Blood Work - Blood work scheduled to check A1c and cholesterol levels. Discussion Notes I discussed with the patient the importance of monitoring her split disc symptoms and managing discomfort as needed. I recommended she see an cobol developer for her visual impairment at night. We also planned for blood work to check her A1c and cholesterol levels. Patient Instructions - Monitor symptoms of the split disc and manage discomfort as needed. - Schedule an appointment with an cobol developer for vision issues at night. - Complete fasting blood work to check A1c and cholesterol levels. Orders: Orders Basic Metabolic Panel Today E11.9 - Type 2 diabetes mellitus without complications Hemoglobin A1c Today E11.9 - Type 2 diabetes mellitus without complications Liver Panel Today E11.9 - Type 2 diabetes mellitus without complications Thyroid Stimulating Hormone Today E11.9 - Type 2 diabetes mellitus without complications Complete Blood Count no Diff Today E11.9 - Type 2 diabetes mellitus without complications Lipid Panel Today E11.9 - Type 2 diabetes mellitus without complications UA and rflx microscopic Today E11.9 - Type 2 diabetes mellitus without complications
[2025-04-10 11:29] VITALS: BP 132/74; PULSE 79; TEMP 36.3; O2SAT 95; BMI 27.6
--- OUTSIDE RECORDS SUMMARY | 2025-04-10 12:17 | XMS_ITS | Clinical Summary ---
Author Organization [facility] Address [address] [place] [address] Phone Care Team Providers Care Network Director Name Role Phone Glen Rose MD Primary Care Provider [phone] Allergies Active Allergy Reactions Criticality Noted Date [...] Sugar Control Test (HGBA1C) 10/22/2024 Influenza Vaccine (#1) 2025 Diabetes: Annual GFR (Glomerular Filtration Rate) [...] mmol/L LAB CHEMISTRY METHOD 10/22/2024 4:46 PM [facility] Potassium 4.4 3.5 - 5.5 mmol/L LAB CHEMISTRY METHOD 10/22/2024 4:46 PM [facility] Chloride 103 96 - 110 mmol/L LAB CHEMISTRY METHOD 10/22/2024 4:46 PM [facility] CO2 24 21 - 32 mmol/L LAB CHEMISTRY METHOD 10/22/2024 4:46 PM [facility] Anion Gap 7 3 - 11 LAB CHEMISTRY METHOD 10/22/2024 4:46 PM [facility] Glucose 151(H) 70 - 100 mg/dL LAB CHEMISTRY METHOD 10/22/2024 4:46 PM [facility] BUN 37(H) 5 - 25 mg/dL LAB CHEMISTRY METHOD 10/22/2024 4:46 PM [facility] Creatinine 2.02(H) 0.50 - 1.10 mg/dL LAB CHEMISTRY METHOD 10/22/2024 4:46 PM [facility] eGFR 24(L) >=60 mL/min/1. 73m2 LAB CHEMISTRY METHOD 10/22/2024 4:46 PM [facility] Comment:Calculation based on the Chronic Kidney Disease Epidemiology Collaboration (CKD-EPI) equation refit without adjustment for race. BUN/Creatinine Ratio 18.3 LAB CHEMISTRY METHOD 10/22/2024 4:46 PM EST [facility] Calcium 9.5 8.5 - 10.5 mg/dL LAB CHEMISTRY METHOD 10/22/2024 4:46 PM EST [facility] Blood Venous blood specimen / Unknown Venipuncture / Unknown 10/22/2024 4:08 PM EST 10/22/2024 4:23 PM EST us Roseline FREDERICK LAB BLOOD ORDERABLES Final Result [facility] ([facility]) [facility] [address] [place] [address], from Last 3 Months or Most Recently Relevant to Health Maintenance Insurance [employer] MEDICARE Advance Directives Documents on File Type Date 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
--- OUTSIDE RECORDS SUMMARY | 2025-04-10 12:18 | XMS_ITS | Patient Health Record ---
Author Organization [facility] Address [address] [place] [address] Care Team Providers Care Simulation Educator Name Role Phone Milton SHERMAN, Glen Primary Care Provider Unavailab Bull Greenwood Unavailable [phone] Allergies Allergen (clinical drug ingredient) Drug/Non Drug Allergy documented on EMR Reaction Allergy Type Onset Date Status hydroxyzine Hydroxyzine Unknown Drug Allergy Act paco lisinopril Lisinopril Unknown Drug Allergy Activ e metformin Metformin Unknown Drug Allergy Active Substance with 8-zryypap-0-methylgluta ryl-coenzyme A reductase inhibitor mechanism of action [...] Problem Acquired hammer toe of right foot (7630451710520805 ) Other hammer toe(s) (acquired), right foot (M20.41) Active confirmed Problem Acquired hammer toe of left foot ([id number] ) Other hammer toe(s) (acquired), left foot (M20.42) Active confirmed Problem Polyneuropathy due to type 2 diabetes mellitus (272283479) Type 2 diabetes mellitus with diabetic polyneuropathy (E11.42) Active confirmed Plan Of Treatment No Information Insurance Providers Payer Name Payer Address Payer Phone Subscriber Number Group Number Insured Name Patient Relationship to Insured Coverage Start Date Coverage End Date [employer] Medicare [id number] [address] [address] [place] [address] [id number] Anna Herrera Self - patient is the insured Medical (General) History Medical History History ICD Code Diabetic High blood pressure Numbness Surgical History Surgery Date(Month/Year) stents 01/03/2018 appendectomy 1968
== END 2025-04-10 11:49 | disposition home or self-care (01) ==
LOC: HO.HMCHD 11:23
PROVIDERS: PCP Family Medicine; Visit Provider Internal Medicine
DX: E11.9 Type 2 diabetes mellitus without complications (principal)

== ENCOUNTER → 2025-04-10 11:22 | Outpatient (BNVA) | payer MEDICARE, SELFPAY | PROVIDERS: PCP Family Medicine; Visit Provider Internal Medicine | DX: E11.9 Type 2 diabetes mellitus without complications (principal) | CPT/HCPCS: 99202 ==

== ENCOUNTER 2025-04-12 10:29 | Outpatient (REF) | payer MEDICARE, SELFPAY ==
--- OUTSIDE RECORDS SUMMARY | 2023-12-15 04:45 | XMS_ITS | Continuity of Care Document ---
Author Name [facility] Organization [facility] Care Team Providers Care Operations Manager Name Role Phone [facility] Unavailable Unavailable Problems Combined list of problems from Department of Defense and Veterans Affairs facilities. It does not include entries that were removed or entered in error. Problem Status Onset Date Problem Type Date of Resolution Comments Source Diagnosis: ICD-10-CM Z71.0 Prsn encntr hlth serv to consult on behalf of another person Active Diagnosis [facility] Immunizations Combined list of available immunizations from the Department of Defense and Veterans Affairs facilities. Immunization Series Date Given Administered By Site Reaction Lot Number CVX Code Drug Molecular Pathologist Status Comments Source COVID-19 (MODERNA), MRNA, LNP-S, PF, 100 MCG/0.5 ML DOSE 2 2020 207 complet ed MOD; [id number]; IELD COVID-19 (MODERNA), MRNA, LNP-S, PF, 100 MCG/0.5 ML DOSE 1 2020 207 complet ed MOD; [id number]; IELD Encounters Combined list of: 1) Encounters from Department of Veterans Affairs facilities going backup to the last 18 months, not all VA inpatient encounters are included; 2) Encounters from the Department of Defense facilities going backup to 280 months. Location Location Details Encounter Type Encounter Number Reason For Visit Attending Provider ADM Date DC Date Status Disposition Source [facility] ([facility]) [facility] ASSMT/REAS SESSMENT [id number] Diagnos is: ICD-10- CM Z71.0 Prsn encntr hlth serv to consult on behalf of another person Gabriele WADE 09/14 [facility] (6[facility] Outpatient Encounter [id number] 12/21 /2023 [facility] HC PRO PHONE CALL 5-10 MIN [id number] Diagnos is: ICD-10- CM Z71.0 Prsn encntr hlth serv to consult on behalf of another person [place] E 10/14 [facility] HC PRO PHONE CALL 5-10 MIN [id number] Diagnos is: ICD-10- CM Z71.0 Prsn encntr hlth serv to consult on behalf of another person [place] E 10/22 [facility] HC PRO PHONE CALL 5-10 MIN [id number] Diagnos is: ICD-10- CM Z71.0 Prsn encntr hlth serv to consult on behalf of another person [place] E 10/28 [facility] HC PRO PHONE CALL 5-10 MIN [id number] Diagnos is: ICD-10- CM Z71.0 Prsn encntr hlth serv to consult on behalf of another person [place] E 10/30 [facility] HC PRO PHONE CALL 5-10 MIN [id number] Diagnos is: ICD-10- CM Z71.0 Prsn encntr hlth serv to consult on behalf of another person [place] E 12/14 [facility]
--- OUTSIDE RECORDS SUMMARY | 2025-04-12 11:23 | XMS_ITS | Clinical Summary ---
Author Organization [facility] Address [address] [place] [address] Phone Care Team Providers Care Digital Computer Systems Analyst Name Role Phone Glen Rose MD Primary Care Provider [phone] Allergies Active Allergy Reactions Criticality Noted Date [...] mmol/L LAB CHEMISTRY METHOD 10/22/2024 4:46 PM [facility] Potassium 4.4 3.5 - 5.5 mmol/L LAB CHEMISTRY METHOD 10/22/2024 4:46 PM [facility] Chloride 103 96 - 110 mmol/L LAB CHEMISTRY METHOD 10/22/2024 4:46 PM [facility] CO2 24 21 - 32 mmol/L LAB CHEMISTRY METHOD 10/22/2024 4:46 PM [facility] Anion Gap 7 3 - 11 LAB CHEMISTRY METHOD 10/22/2024 4:46 PM [facility] Glucose 151(H) 70 - 100 mg/dL LAB CHEMISTRY METHOD 10/22/2024 4:46 PM [facility] BUN 37(H) 5 - 25 mg/dL LAB CHEMISTRY METHOD 10/22/2024 4:46 PM [facility] Creatinine 2.02(H) 0.50 - 1.10 mg/dL LAB CHEMISTRY METHOD 10/22/2024 4:46 PM [facility] eGFR 24(L) >=60 mL/min/1. 73m2 LAB CHEMISTRY METHOD 10/22/2024 4:46 PM [facility] Comment:Calculation based on the Chronic Kidney Disease Epidemiology Collaboration (CKD-EPI) equation refit without adjustment for race. BUN/Creatinine Ratio 18.3 LAB CHEMISTRY METHOD 10/22/2024 4:46 PM EST [facility] Calcium 9.5 8.5 - 10.5 mg/dL LAB CHEMISTRY METHOD 10/22/2024 4:46 PM EST [facility] Blood Venous blood specimen / Unknown Venipuncture / Unknown 10/22/2024 4:08 PM EST 10/22/2024 4:23 PM EST us Roseline FREDERICK LAB BLOOD ORDERABLES Final Result [facility] ([facility]) [facility] [address] [place] [address], from Last 3 Months or Most Recently Relevant to Health Maintenance Insurance [employer] MEDICARE Advance Directives Documents on File Type Date Recorded Patient Pain Management Nurse Expl anation DNR (Do Not Resuscitate) 10/22/2024 4:31 PM Power of Civil Process Server 10/22/2024 4:29 PM Healthcare Agents on File Name Relationship Healthcare Agent [facility] Tony Collincarmennancy Son Health Care Agent Grupo Collincarmenbie Son First Alternate Health Car e Agent Care Teams Digital Computer Systems Analyst Relationship Specialty Start Date End Date Glen Rose MD [address] [place] [address] Dr Dick, [place]ANDY [id number] PCP - General Internal Medicine 10/05/12
--- OUTSIDE RECORDS SUMMARY | 2025-04-12 11:23 | XMS_ITS | Patient Health Record ---
Author Organization [facility] Address [address] [place] [address] Care Team Providers Care Honest John Rocket Crew Member Name Role Phone Milton SHERMAN, Glen Primary Care Provider Unavailab Bull Greenwood Unavailable [phone] Allergies Allergen (clinical drug ingredient) Drug/Non Drug Allergy documented on EMR Reaction Allergy Type Onset Date Status hydroxyzine Hydroxyzine Unknown Drug Allergy Act paco lisinopril Lisinopril Unknown Drug Allergy Activ e metformin Metformin Unknown Drug Allergy Active Substance with 4-admiukk-9-methylgluta ryl-coenzyme A reductase inhibitor mechanism of action [...] Problem Acquired hammer toe of right foot (9333010528156182 ) Other hammer toe(s) (acquired), right foot (M20.41) Active confirmed Problem Acquired hammer toe of left foot (5765062012123954 ) Other hammer toe(s) (acquired), left foot (M20.42) Active confirmed Problem Polyneuropathy due to type 2 diabetes mellitus (888612928) Type 2 diabetes mellitus with diabetic polyneuropathy (E11.42) Active confirmed Plan Of Treatment No Information Insurance Providers Payer Name Payer Address Payer Phone Subscriber Number Group Number Insured Name Patient Relationship to Insured Coverage Start Date Coverage End Date [employer] Medicare [id number] [place] [address] [id number] Anna Herrera Self - patient is the insured Medical (General) History Medical History History ICD Code Diabetic High blood pressure Numbness Surgical History Surgery Date(Month/Year) stents 01/03/2018 appendectomy 1968
[2025-04-12 11:40] LABS: Hematocrit 39.3 % (37.0-47.0); Hemoglobin 12.3 g/dl (12.0-16.0); Mean Corpuscular HGB Conc 31.3 g/dl (31.0-35.0); Mean Corpuscular Hemoglobin 29.9 pg (27.0-33.0); Mean Corpuscular Volume 95.6 fL (80.0-98.0); NRBC Abs Auto 0.000 X10*3/uL (0.0-0.012); NRBC Pct Auto 0.0 /100WBC (0.0-0.2); Platelet Count 198 X10*3/uL (160-400); Red Blood Count 4.11 X10*6/uL (4.20-5.50); White Blood Count 4.6 X10*3/uL (4.8-10.8)
[2025-04-12 11:47] LABS: Hemoglobin A1C 178.6656 umol/L; Total Hemoglobin (HGBA1C) 3302.2535 umol/L
[2025-04-12 11:52] LABS: Appearance Urine Clear; Glucose Urine UA Negative (Negative); PH 5.0 (5.0-9.0); Specific Gravity - Urine 1.020 (1.005-1.025); UMIC TRIGGER UA YES
[2025-04-12 12:26] LABS: Alanine Aminotransferase 12 U/L (0-31); Albumin Level 4.5 g/dL (3.5-5.0); Alkaline Phosphatase 52 U/L (39-117); Anion Gap 12 (12-20); Aspartate Amino Transferase 17 U/L (5-31); Blood Urea Nitrogen 34 mg/dL (9-16); Calcium 9.2 mg/dL (8.4-10.2); Carbon Dioxide 26 mmol/L (22-29); Chloride 109 mmol/L (96-108); Cholesterol 301 mg/dL (<200); Estimated Glomerular Filt Rate 28; HDL Cholesterol 54 mg/dL (>40); Potassium 4.8 mmol/L (3.3-5.1); Sodium 142 mmol/L (135-145); Total Protein 7.1 g/dL (6.5-8.0); Triglycerides 184 mg/dL (<150)
[2025-04-12 12:28] LABS: Thyroid Stimulating Hormone 1.76 uIU/mL (0.32-4.0)
== END 2025-04-12 10:30 | disposition home or self-care (01) ==
LOC: HO.LAB 10:29
PROVIDERS: Absent Provider Internal Medicine Nephrology; PCP Internal Medicine; Visit Provider Internal Medicine
DX: E11.9 Type 2 diabetes mellitus without complications (principal)
CPT/HCPCS: 36415; 80048; 80061; 80076; 81001; 83036; 84443; 85027

== ENCOUNTER 2025-04-13 13:34 | Outpatient (AMB) | payer MEDICARE, SELFPAY ==
--- OUTSIDE RECORDS SUMMARY | 2023-12-15 04:45 | XMS_ITS | Continuity of Care Document ---
Author Name [facility] Organization [facility] Care Team Providers Care Elevator Constructor Name Role Phone [facility] Unavailable Unavailable Problems Combined list of problems [...] Site Reaction Lot Number CVX Code Drug Pricing Associate Status Comments Source COVID-19 (MODERNA), MRNA, LNP-S, PF, 100 MCG/0.5 ML DOSE 2 2020 207 complet ed MOD; [id number]; IELD COVID-19 (MODERNA), MRNA, LNP-S, PF, 100 MCG/0.5 ML DOSE 1 2020 207 complet ed MOD; [id number]; IELD Encounters Combined list of: 1) Encounters from Department of Veterans Affairs facilities going backup to the last 18 months, not all VA inpatient encounters are included; 2) Encounters from the Department of Defense facilities going backup to 280 months. Location Location Details Encounter Type Encounter Number Reason For Visit Attending Provider ADM Date DC Date Status Disposition Source [facility] (631GE) [facility] ASSMT/REAS SESSMENT [id number] Diagnos is: ICD-10- CM Z71.0 Prsn encntr hlth serv to consult on behalf of another person Gabriele WADE 09/14 [facility] (631GE) [facility] Outpatient Encounter [id number] 12/21 /2023 [facility] HC PRO PHONE CALL 5-10 MIN [id number] Diagnos is: ICD-10- CM Z71.0 Prsn encntr hlth serv to consult on behalf of another person [place] E 10/14 [facility] HC PRO PHONE CALL 5-10 MIN [id number] Diagnos is: ICD-10- CM Z71.0 Prsn encntr hlth serv to consult on behalf of another person [place] E 10/22 [facility] HC PRO PHONE CALL 5-10 MIN [id number] Diagnos is: ICD-10- CM Z71.0 Prsn encntr hlth serv to consult on behalf of another person [place] E 10/28 [facility] HC PRO PHONE CALL 5-10 MIN [id number] Diagnos is: ICD-10- CM Z71.0 Prsn encntr hlth serv to consult on behalf of another person [place] E 10/30 [facility] HC PRO PHONE CALL 5-10 MIN [id number] Diagnos is: ICD-10- CM Z71.0 Prsn encntr hlth serv to consult on behalf of another person [place] E 12/14 [facility]
--- NOTE | 2025-04-13 13:36 | A.OFFVIS_ITS ---
Vital Signs 04/13/25 13:37 Height 5 ft 7 in Weight 171 lb 15.369 oz BMI 26.9 BP 120/80 Blood Pressure Location Lt brachial Position Sitting Pulse 82 Intake Visit Reasons: 1 yr /fup Intake Note: 1 year follow-up with ekg feeling good Auto Service Mechanic Required: No Allergies metformin Allergy (Unknown, Verified 04/10/25 14:08) gi barium sulfate (From Eneset 2) Adverse Reaction (Mild, Verified 04/10/25 14:08) Stomach Upset carvedilol Adverse Reaction (Mild, Verified 04/10/25 14:08) Stomach Upset hydroxyzine Adverse Reaction (Mild, Verified 04/10/25 14:08) Stomach Upset metoprolol Adverse Reaction (Mild, Verified 04/10/25 14:08) Cough lisinopril Adverse Reaction (Unknown, Verified 04/10/25 14:08) cough Statins Support Allergy (Unknown, Uncoded 04/10/25 14:08) mx Medication List - Last Reconciled 04/13/25 by Severino Melendez MD amlodipine 2.5 mg PO BID aspirin 81 mg PO DAILY clopidogrel 75 mg PO DAILY gabapentin 300 mg PO DAILY glimepiride 4 mg PO DAILY HPI Comments Details: Anna comes for follow-up. Recently underwent myocardial perfusion imaging which shows a small area of distal LAD territory ischemia with echocardiogram showed mildly reduced LV ejection fraction. She has markedly elevated cholesterol with significant elevated LDL, currently not on statin therapy due to intolerance and has not been interested in alternative therapies. Her recent carotid ultrasound shows moderately severe bilateral stenosis. Recent lower extremity duplex suggest severe in fluid disease. She continues to have symptoms related to bilateral calf discomfort walking about 50 ft especially if she hurries up. If she walks at a slower pace she still gets discomfort but it is not limiting. Patient denies any chest pain with her walking. Takes all her medications. [facility] Medical History Exertional angina Hyperlipidemia HTN (hypertension) PVD (peripheral vascular disease) Diabetes mellitus CAD (coronary artery disease) Surgical History Hx of appendectomy Stented coronary artery Family History Mother No problems noted. Father No problems noted. Social History Household Members: Children Housing: House Alcohol intake: never Patient Tobacco Use Status: Former Tobacco user e-Cigarette/Vaping Use: Former Use service: No Current occupational status: retired Cognitive needs: No Hearing needs: No Vision needs: Yes (rx glasses) Review of Systems Const Denies chills, Denies fatigue, Denies fever(s), Denies frequent falls, Denies weakness, Denies weight gain and Denies weight loss ENT Denies dizziness Card Denies chest pain, Denies leg edema, Denies lightheadedness, Denies palpitations, Denies dyspnea, Denies dyspnea on exertion, Denies orthopnea and Denies other (loss of consciousness) Resp Denies cough, Denies dyspnea and Denies dyspnea on exertion GI Denies hematochezia and Denies change in stool character Musc Denies abnormal gait, Denies muscle weakness, Denies numbness, Denies radiating pain into limb and Denies tingling Neuro Denies abnormal gait, Denies dizziness, Denies frequent falls, Denies numbness, Denies tingling and Denies weakness Endo Denies fatigue and Denies palpitations Physical Exam Vital Signs: Last Vital Signs Pulse 82 04/13/25 13:37 BP 120/80 04/13/25 13:37 BMI result Body Mass Index 26.9 Const General: cooperative, healthy appearing, comfortable and no acute distress Orientation/consciousness: patient oriented x3 Neck Neck: Yes normal visual inspection and Yes no JVD Carotids: bruit bilateral Resp Effort & Inspection: normal respiratory effort Auscultation: clear to auscultation bilaterally, no crackles, no rales, no rhonchi and no wheezes Cardio Jugular venous distension: no JVD Rate: regular rate Rhythm: regular rhythm Heart sounds: S1 normal heart sound present, S2 normal heart sound present, no gallops, no murmurs and no rubs Bruits: carotid bruit bilaterally GI Inspection: Yes normal to inspection Neuro General: patient oriented x3 Extrem General: Yes normal to inspection Psych Appearance: grossly normal Mental Status: mental status grossly normal Speech and movement: Normal speech and movement present Office Procedures EKG Details: EKG shows normal sinus rhythm with occasional PVCs with diffuse ST T wave changes suggestive of either repolarization abnormality or subendocardial ischemia 77682-[id number], Complete Assessment & Plan Assessment & Plan (1) CAD (coronary artery disease): Code(s): I25.10 - Atherosclerotic heart disease of [place] coronary artery without angina pectoris Category: Medical Plan: Coronary artery disease with prior RCA stenting. She is currently not having any anginal symptoms but has some ischemia in the distal LAD territory. There is high likelihood of progressive coronary disease although without symptoms and given her comorbidities with advanced renal dysfunction would avoid cardiac catheterization that point time unless she has symptoms. Continue amlodipine therapy. Continue dual antiplatelet therapy. She has significant diffuse vascular disease and is following with vascular surgery for PVD as well as carotid disease. She would benefit from lipid modification although she is currently not interested in PCSK9 inhibitor therapy. (2) Ischemic cardiomyopathy: Code(s): I25.5 - Ischemic cardiomyopathy Category: Medical Plan: Mild ischemic cardiomyopathy without overt congestive heart failure. No signs or symptoms of heart failure. They were discussed with her. Continue aggressive and ischemia therapy continue amlodipine therapy. Would avoid renin angiotensin antagonist due to renal insufficiency. Will follow up in the clinic in 6 months time, sooner p.r.n.. Thank you for allowing me to partake in her care Coding Level of Care Code Est Pt Level 4 (80349) Complex EM visit Add On G2211 Diagnoses CAD (coronary artery disease) I25.10 Ischemic cardiomyopathy I25.5 CPT Codes EKG - CPT: 95138-[id number], Complete ([id number])
--- OUTSIDE RECORDS SUMMARY | 2025-04-13 13:36 | XMS_ITS | Patient Health Record ---
Author Organization [facility] Address [address] [place] [address] Care Team Providers Care Family Protection Specialist Name Role Phone Milton SHERMAN, Glen Primary Care Provider Unavailab Bull Greenwood Unavailable [phone] Allergies Allergen (clinical drug ingredient) Drug/Non Drug Allergy documented on EMR Reaction Allergy Type Onset Date Status hydroxyzine Hydroxyzine Unknown Drug Allergy Act paco lisinopril Lisinopril Unknown Drug Allergy Activ e metformin Metformin Unknown Drug Allergy Active Substance with 9-ljodjha-5-methylgluta ryl-coenzyme A reductase inhibitor mechanism of action [...] Problem Acquired hammer toe of right foot (2069738330737488 ) Other hammer toe(s) (acquired), right foot (M20.41) Active confirmed Problem Acquired hammer toe of left foot (8145209764182024 ) Other hammer toe(s) (acquired), left foot (M20.42) Active confirmed Problem Polyneuropathy due to type 2 diabetes mellitus (678465838) Type 2 diabetes mellitus with diabetic polyneuropathy (E11.42) Active confirmed Plan Of Treatment No Information Insurance Providers Payer Name Payer Address Payer Phone Subscriber Number Group Number Insured Name Patient Relationship to Insured Coverage Start Date Coverage End Date [employer] Medicare [id number] [address] [address] [place] [address] [id number] Anna Herrera Self - patient is the insured Medical (General) History Medical History History ICD Code Diabetic High blood pressure Numbness Surgical History Surgery Date(Month/Year) stents 01/03/2018 appendectomy 1968
--- OUTSIDE RECORDS SUMMARY | 2025-04-13 13:36 | XMS_ITS | Clinical Summary ---
Author Organization [facility] Address [address] [place] [address] Phone Care Team Providers Care Shredding Machine Knife Changer Name Role Phone Glen Rose MD Primary Care Provider [phone] Allergies Active Allergy Reactions Criticality Noted Date [...] mmol/L LAB CHEMISTRY METHOD 10/22/2024 4:46 PM [facility] Potassium 4.4 3.5 - 5.5 mmol/L LAB CHEMISTRY METHOD 10/22/2024 4:46 PM [facility] Chloride 103 96 - 110 mmol/L LAB CHEMISTRY METHOD 10/22/2024 4:46 PM [facility] CO2 24 21 - 32 mmol/L LAB CHEMISTRY METHOD 10/22/2024 4:46 PM [facility] Anion Gap 7 3 - 11 LAB CHEMISTRY METHOD 10/22/2024 4:46 PM [facility] Glucose 151(H) 70 - 100 mg/dL LAB CHEMISTRY METHOD 10/22/2024 4:46 PM [facility] BUN 37(H) 5 - 25 mg/dL LAB CHEMISTRY METHOD 10/22/2024 4:46 PM [facility] Creatinine 2.02(H) 0.50 - 1.10 mg/dL LAB CHEMISTRY METHOD 10/22/2024 4:46 PM [facility] eGFR 24(L) >=60 mL/min/1. 73m2 LAB CHEMISTRY METHOD 10/22/2024 4:46 PM [facility] Comment:Calculation based on the Chronic Kidney Disease Epidemiology Collaboration (CKD-EPI) equation refit without adjustment for race. BUN/Creatinine Ratio 18.3 LAB CHEMISTRY METHOD 10/22/2024 4:46 PM EST [facility] ([facility] Calcium 9.5 8.5 - 10.5 mg/dL LAB CHEMISTRY METHOD 10/22/2024 4:46 PM EST [facility] Blood Venous blood specimen / Unknown Venipuncture / Unknown 10/22/2024 4:08 PM EST 10/22/2024 4:23 PM EST us Roseline FREDERICK LAB BLOOD ORDERABLES Final Result [facility] ([facility]) [facility] [address] [place] [address], from Last 3 Months or Most Recently Relevant to Health Maintenance Insurance [employer] MEDICARE Advance Directives Documents on File Type Date Recorded Patient Soaker Soda Worker Expl anation DNR (Do Not Resuscitate) 10/22/2024 4:31 PM Power of Fresh Meat Grader 10/22/2024 4:29 PM Healthcare Agents on File Name Relationship [facility] Tony Collincarmennancy Son Health Care Agent Grupo Collincarmenbie Son First Alternate Health Car e Agent Care Teams Shredding Machine Knife Changer Relationship Specialty Start Date End Date Glen Rose MD [address] [place] [address] Dr Dick, [place]ANDY [id number] PCP - General Internal Medicine 10/05/12
[2025-04-13 13:37] VITALS: BP 120/80; PULSE 82; BMI 26.9
== END 2025-04-13 14:08 | disposition home or self-care (01) ==
LOC: HO.HCS 13:34
PROVIDERS: PCP Family Medicine; Visit Provider Internal Medicine Cardiovascular Disease
DX: I25.10 Atherosclerotic heart disease of native coronary artery without angina pectoris (principal); I25.5 Ischemic cardiomyopathy
CPT/HCPCS: 93010; 99214; G2211

== ENCOUNTER → 2025-04-13 13:34 | Outpatient (BNVA) | payer MEDICARE, SELFPAY | PROVIDERS: PCP Family Medicine; Visit Provider Internal Medicine Cardiovascular Disease | DX: I25.10 Atherosclerotic heart disease of native coronary artery without angina pectoris (principal); I25.5 Ischemic cardiomyopathy; R94.31 Abnormal electrocardiogram [ECG] [EKG] | CPT/HCPCS: 93005; 99212 ==

== ENCOUNTER 2025-04-28 14:45 | Outpatient (REF) | payer MEDICARE, SELFPAY ==
--- OUTSIDE RECORDS SUMMARY | 2023-12-15 04:45 | XMS_ITS | Continuity of Care Document ---
Author Name [facility] Organization [facility] Care Team Providers Care Hot Header Operator Name Role Phone [facility] Unavailable Unavailable Problems Combined list of problems from Department of Defense and Veterans Affairs facilities. It does not include entries that were removed or entered in error. Problem Status Onset Date Problem Type Date of Resolution Comments Source Diagnosis: ICD-10-CM Z71.0 Prsn encntr hlth serv to consult on behalf of another person Active Diagnosis [facility] Immunizations Combined list of available immunizations from the Department of Defense and Veterans Affairs facilities. Immunization Series Date Given Administered By Site Reaction Lot Number CVX Code Drug Lithographic General Worker Status Comments Source COVID-19 (MODERNA), MRNA, LNP-S, PF, 100 MCG/0.5 ML DOSE 2 2020 207 complet ed MOD; [id number]; IELD COVID-19 (MODERNA), MRNA, LNP-S, PF, 100 MCG/0.5 ML DOSE 1 2020 207 complet ed MOD; [id number]; IELD Encounters Combined list of: 1) Encounters from Department of Veterans Affairs facilities going backup to the last 18 months, not all VA inpatient encounters are included; 2) Encounters from the Department of Defense facilities going backup to 280 months. Location Location Details Encounter Type Encounter Number Reason For Visit Attending Provider ADM Date DC Date Status Disposition Source [facility] (6[facility]GE) [facility] ASSMT/REAS SESSMENT [id number] Diagnos is: ICD-10- CM Z71.0 Prsn encntr hlth serv to consult on behalf of another person Gabriele WADE 09/14 [facility] (631GE) [facility] Outpatient Encounter [id number] 12/21 /2023 [facility] HC PRO PHONE CALL 5-10 MIN [id number] Diagnos is: ICD-10- CM Z71.0 Prsn encntr hlth serv to consult on behalf of another person [place] E 10/14 [facility] HC PRO PHONE CALL 5-10 MIN [id number] Diagnos is: ICD-10- CM Z71.0 Prsn encntr hlth serv to consult on behalf of another person [place] E 10/22 [facility] HC PRO PHONE CALL 5-10 MIN [id number] Diagnos is: ICD-10- CM Z71.0 Prsn encntr hlth serv to consult on behalf of another person [place] E 10/28 [facility] HC PRO PHONE CALL 5-10 MIN [id number] Diagnos is: ICD-10- CM Z71.0 Prsn encntr hlth serv to consult on behalf of another person [place] E 10/30 [facility] HC PRO PHONE CALL 5-10 MIN [id number] Diagnos is: ICD-10- CM Z71.0 Prsn encntr hlth serv to consult on behalf of another person [place] E 12/14 [facility]
--- OUTSIDE RECORDS SUMMARY | 2025-04-28 14:48 | XMS_ITS | Clinical Summary ---
Author Organization [facility] Address [address] [place] [address] Phone Care Team Providers Care Build Manager Name Role Phone Glen Rose MD Primary Care Provider [phone] Allergies Active Allergy Reactions Criticality Noted Date [...] series) 2017 Cholesterol Screening (Lipid Panel) 09/07/2022 Falls Risk Assessment 09/07/2022 Medicare Annual Wellness Visit 09/07/2022 Osteoporosis Screening (Bone Density Screening) 09/07/2022 Social Influencers of Health Screening 09/07/2022 COVID-19 Vaccine ( season) 2024 11/10/2022, 01/30/2022, 07/16/2021, Additional history exists Depression Screening 10/05/2024 Diabetes: Annual Urine Albumin-Creatinine Ratio (uACR) 10/22/2024 [...] mmol/L LAB CHEMISTRY METHOD 10/22/2024 4:46 PM [facility] Potassium 4.4 3.5 - 5.5 mmol/L LAB CHEMISTRY METHOD 10/22/2024 4:46 PM [facility] Chloride 103 96 - 110 mmol/L LAB CHEMISTRY METHOD 10/22/2024 4:46 PM [facility] CO2 24 21 - 32 mmol/L LAB CHEMISTRY METHOD 10/22/2024 4:46 PM [facility] Anion Gap 7 3 - 11 LAB CHEMISTRY METHOD 10/22/2024 4:46 PM [facility] Glucose 151(H) 70 - 100 mg/dL LAB CHEMISTRY METHOD 10/22/2024 4:46 PM [facility] BUN 37(H) 5 - 25 mg/dL LAB CHEMISTRY METHOD 10/22/2024 4:46 PM [facility] Creatinine 2.02(H) 0.50 - 1.10 mg/dL LAB CHEMISTRY METHOD 10/22/2024 4:46 PM [facility] eGFR 24(L) >=60 mL/min/1. 73m2 LAB CHEMISTRY METHOD 10/22/2024 4:46 PM [facility] Comment:Calculation based on the Chronic Kidney Disease Epidemiology Collaboration (CKD-EPI) equation refit without adjustment for race. BUN/Creatinine Ratio 18.3 LAB CHEMISTRY METHOD 10/22/2024 4:46 PM EST [facility] Calcium 9.5 8.5 - 10.5 mg/dL LAB CHEMISTRY METHOD 10/22/2024 4:[address] [facility] Blood Venous blood specimen / Unknown Venipuncture / Unknown 10/22/2024 4:08 PM EST 10/22/2024 4:23 PM EST us Roseline FREDERICK LAB BLOOD ORDERABLES Final Result [facility] ([facility]) [facility] [address] [place] [address], from Last 3 Months or Most Recently Relevant to Health Maintenance Insurance [employer] MEDICARE Advance Directives Documents on File Type Date Recorded Patient Agent Contract Clerk Expl anation DNR (Do Not Resuscitate) 10/22/2024 4:31 PM Power of Labor And Delivery Nurse 10/22/2024 4:29 PM Healthcare Agents on File Name Relationship [facility] Communication Tony Collincarmennancy Son Health Care Agent Grupo Collincarmenbie Son First Alternate Health Car e Agent Care Teams Build Manager Relationship Specialty Start Date End Date Glen Rose MD [address] [place] [address] Dr Dick, [place] [id number] PCP - General Internal Medicine 10/05/12
--- OUTSIDE RECORDS SUMMARY | 2025-04-28 14:48 | XMS_ITS | Patient Health Record ---
Author Organization [facility] Address [address] [place] [address] Care Team Providers Care Vacuum Truck Driver Name Role Phone Milton SHERMAN, Glen Primary Care Provider Unavailab Bull Greenwood Unavailable [phone] Allergies Allergen (clinical drug ingredient) Drug/Non Drug Allergy documented on EMR Reaction Allergy Type Onset Date Status hydroxyzine Hydroxyzine Unknown Drug Allergy Act paco lisinopril Lisinopril Unknown Drug Allergy Activ e metformin Metformin Unknown Drug Allergy Active Substance with 0-hxawycd-1-methylgluta ryl-coenzyme A reductase inhibitor mechanism of action [...] Problem Acquired hammer toe of right foot (1268542467224803 ) Other hammer toe(s) (acquired), right foot (M20.41) Active confirmed Problem Acquired hammer toe of left foot (8992924151578063 ) Other hammer toe(s) (acquired), left foot (M20.42) Active confirmed Problem Polyneuropathy due to type 2 diabetes mellitus ([id number]) Type 2 diabetes mellitus with diabetic polyneuropathy (E11.42) Active confirmed Plan Of Treatment No Information Insurance Providers Payer Name Payer Address Payer Phone Subscriber Number Group Number Insured Name Patient Relationship to Insured Coverage Start Date Coverage End Date [employer] Medicare [id number] [address] [address] [place] [address] [id number] Anna Herrera Self - patient is the insured Medical (General) History Medical History History ICD Code Diabetic High blood pressure Numbness Surgical History Surgery Date(Month/Year) stents 01/03/2018 appendectomy 1968
== END 2025-04-28 14:46 | disposition home or self-care (01) ==
LOC: HO.CT 14:45
PROVIDERS: PCP Internal Medicine; Visit Provider Surgery Vascular Surgery
DX: Z13.89 Encounter for screening for other disorder (principal)

== ENCOUNTER 2025-05-23 10:43 | Outpatient (AMB) | payer MEDICARE, SELFPAY ==
--- OUTSIDE RECORDS SUMMARY | 2023-12-15 04:45 | XMS_ITS | Continuity of Care Document ---
Author Name [facility] Organization [facility] Care Team Providers Care Rn Care Transition Name Role Phone [facility] Unavailable Unavailable Problems Combined list of problems [...] Site Reaction Lot Number CVX Code Drug Jewelry Manager Status Comments Source COVID-19 (MODERNA), MRNA, LNP-S, PF, 100 MCG/0.5 ML DOSE 2 2020 207 complet ed MOD; [id number]; IELD COVID-19 (MODERNA), MRNA, LNP-S, PF, 100 MCG/0.5 ML DOSE 1 2020 207 complet ed MOD; [id number]; IELD Encounters Combined list of: 1) Encounters from Department of Veterans Affairs facilities going backup to the last 18 months, not all VA inpatient encounters are included; 2) Encounters from the Department of Defense facilities going backup to 280 months. Location Location Details Encounter Type Encounter Number Reason For Visit Attending Provider ADM Date DC Date Status Disposition Source [facility] (631GE) [facility] ASSMT/REAS SESSMENT [id number] Diagnos is: ICD-10- CM Z71.0 Prsn encntr hlth serv to consult on behalf of another person Gabriele WADE 09/14 [facility] (631GE) [facility] Outpatient Encounter [id number] 12/21 /2023 [facility] HC PRO PHONE CALL 5-10 MIN [id number] Diagnos is: ICD-10- CM Z71.0 Prsn encntr hlth serv to consult on behalf of another person [place] E 10/14 [facility] HC PRO PHONE CALL 5-10 MIN [id number] Diagnos is: ICD-10- CM Z71.0 Prsn encntr hlth serv to consult on behalf of another person [place] E 10/22 [facility] HC PRO PHONE CALL 5-10 MIN [id number] Diagnos is: ICD-10- CM Z71.0 Prsn encntr hlth serv to consult on behalf of another person [place] E 10/28 [facility] HC PRO PHONE CALL 5-10 MIN [id number] Diagnos is: ICD-10- CM Z71.0 Prsn encntr hlth serv to consult on behalf of another person [place] E 10/30 [facility] HC PRO PHONE CALL 5-10 MIN [id number] Diagnos is: ICD-10- CM Z71.0 Prsn encntr hlth serv to consult on behalf of another person [place] E 12/14 [facility]
--- NOTE | 2025-05-23 10:58 | HO.NEPHOV ---
Vital Signs 05/23/25 11:06 Height 5 ft 7 in Weight 170 lb 6 oz BMI 26.7 BP 140/60 H Blood Pressure Location Lt brachial Position Sitting Pulse 61 Pulse Source Pulse Oximeter Pulse Oximetry (%) 94 Oxygen Delivery Method Room Air Intake Visit Reasons: 4 mnts f/u-Conf Slip Tender Required: No Accompanied by: Self / Same As Patient Allergies metformin Allergy (Unknown, Verified 05/23/25 11:06) gi barium sulfate (From Eneset 2) Adverse Reaction (Mild, Verified 05/23/25 11:06) Stomach Upset carvedilol Adverse Reaction (Mild, Verified 05/23/25 11:06) Stomach Upset hydroxyzine Adverse Reaction (Mild, Verified 05/23/25 11:06) Stomach Upset metoprolol Adverse Reaction (Mild, Verified 05/23/25 11:06) Cough lisinopril Adverse Reaction (Unknown, Verified 05/23/25 11:06) cough Statins Support Allergy (Unknown, Uncoded 04/10/25 14:08) mx HPI Comments Details: I had the privilege of seeing of seeing Anna in follow up for CKD and hypertension. She is a 84 year old with H/O PAD as well as CAD. She is hypertensive on medications. She denied any retinopathy or neuropathy, CVA, CHF, renal stones, new bone or back pain, hypercalcemia, edema, hematuria, sensori neural deafness, epistaxis, photosensitivity, recent infection, skin rashes. Her serum creatinine stable. She has no new systemic symptoms. She has left KATHY. She feels well [facility] Medical History Exertional angina Hyperlipidemia HTN (hypertension) PVD (peripheral vascular disease) Diabetes mellitus CAD (coronary artery disease) Surgical History Hx of appendectomy Stented coronary artery Family History Mother No problems noted. Father No problems noted. Social History Household Members: Children Housing: House Alcohol intake: never Patient Tobacco Use Status: Former Tobacco user e-Cigarette/Vaping Use: Former Use service: No Current occupational status: retired Cognitive needs: No Hearing needs: No Vision needs: Yes (rx glasses) Review of Systems Const All systems reviewed & are unremarkable except as noted in HPI and below Physical Exam Const General: comfortable and no acute distress Orientation/consciousness: patient oriented x3 HEENT Head: Yes normocephalic Mouth: Normal oral and palatal mucosa present Eyes EOM: EOMs intact bilaterally Neck Neck: Yes supple Resp Auscultation: clear to auscultation bilaterally Cardio Jugular venous distension: no JVD Rate: regular rate GI Palpation (GI): Soft to palpation Auscultation: normal bowel sounds General: Yes no CVA tenderness Back/Spine/Pelvis Back: no CVA tenderness Skin General skin exam: no rashes or lesions noted Neuro General: patient oriented x3 and moves all extremities Extrem General: Yes no pedal edema Results Reviewed Nephrology Results: Hgb, (12.0-16.0) 12.3 g/dl 04/12/25 WBC, (4.8-10.8) 4.6 X10*3/uL L 04/12/25 Plt Count, (160-400) 198 X10*3/uL 04/12/25 Sodium, (135-145) 142 mmol/L 04/12/25 Potassium, (3.3-5.1) 4.8 mmol/L 04/12/25 Chloride, (96-108) 109 mmol/L H 04/12/25 Carbon Dioxide, (22-29) 26 mmol/L 04/12/25 BUN, (9-16) 34 mg/dL H 04/12/25 Creatinine, (0.5-1.4) 1.76 mg/dL H 04/12/25 Calcium, (8.4-10.2) 9.2 mg/dL Δ 04/12/25 Urine Protein, (Neg-Trace) Trace mg/dL 04/12/25 Renal US 03/31/24 Assessment & Plan Assessment & Plan (1) HTN (hypertension): Code(s): I10 - Essential (primary) hypertension Category: Medical Qualifiers: Hypertension type: renovascular hypertension Qualified Code(s): I15.0 - Renovascular hypertension (2) Renal artery stenosis, pilot station: Code(s): I70.1 - Atherosclerosis of renal artery Category: Medical (3) CKD stage 3b, GFR 30-44 ml/min: Code(s): N18.32 - Chronic kidney disease, stage 3b Category: Medical Plan Anna has progressive decline GFR likely due to renovascular disease which was confirmed by imaging. She has coronary artery disease as well as PAD. She is on aspirin and Plavix. There is no reason to suspect any cholesterol embolism. Her blood pressure is currently controlled with amlodipine. She maintains good hydration and avoids nonsteroidal anti-inflammatories. ( She was on Jardiance- was not agreeing with her as per patient). Her 24 hour urine for creatinine clearance showed GFR of 32 mls/ mt. No medication changes made today. Answered all questions and follow-up given Orders: Orders Creatinine 4 Months I15.0 - Renovascular hypertension, I70.1 - Atherosclerosis of renal artery, N18.32 - Chronic kidney disease, stage 3b Blood Urea Nitrogen 4 Months I15.0 - Renovascular hypertension, I70.1 - Atherosclerosis of renal artery, N18.32 - Chronic kidney disease, stage 3b Electrolytes 4 Months I15.0 - Renovascular hypertension, I70.1 - Atherosclerosis of renal artery, N18.32 - Chronic kidney disease, stage 3b Coding Level of Care Code Est Pt Level 4 (35912) Diagnoses Renovascular hypertension I15.0 Hypertension type: renovascular hypertension Renal artery stenosis, pilot station I70.1 CKD stage 3b, GFR 30-44 ml/min N18.32
[2025-05-23 11:06] VITALS: BP 140/60; PULSE 61; O2SAT 94; BMI 26.7
--- OUTSIDE RECORDS SUMMARY | 2025-05-23 12:10 | XMS_ITS | Patient Health Record ---
Author Organization [facility] Address [address] [place] [address] Care Team Providers Care Sign Erector Name Role Phone Kayla Medrano Unavailable [phone] Allergies Allergen (clinical drug ingredient) Drug/Non Drug Allergy documented on EMR Reaction Allergy Type Onset Date Status hydroxyzine Hydroxyzine Unknown Drug Allergy Act paco lisinopril Lisinopril Unknown Drug Allergy Activ e metformin Metformin Unknown Drug Allergy Active Substance with 5-bbmpbms-8-methylgluta ryl-coenzyme A reductase inhibitor mechanism of action [...] Problem Acquired hammer toe of right foot ([id number] ) Other hammer toe(s) (acquired), right foot (M20.41) Active confirmed Problem Acquired hammer toe of left foot ([id number] ) Other hammer toe(s) (acquired), left foot (M20.42) Active confirmed Problem Polyneuropathy due to type 2 diabetes mellitus (116775703) Type 2 diabetes mellitus with diabetic polyneuropathy (E11.42) Active confirmed Plan Of Treatment Next Appt Details Provider Name:Kayla Chicho Medrano , 08/02/2025 10:30:00 AM, [address] [facility], [place], [address], Insurance Providers Payer Name Payer Address Payer Phone Subscriber Number Group Number Insured Name Patient Relationship to Insured Coverage Start Date Coverage End Date [employer] Medicare [id number] [address] [address] [place] [address] [id number] Anna Herrera Self - patient is the insured Medical (General) History Medical History History ICD Code Diabetic High blood pressure Numbness Surgical History Surgery Date(Month/Year) stents 01/03/2018 appendectomy 1968
--- OUTSIDE RECORDS SUMMARY | 2025-05-23 12:10 | XMS_ITS | Clinical Summary ---
Author Organization [facility] Address [address] [place] [address] Phone Care Team Providers Care Hot Metal Charger Name Role Phone Glen Rose MD Primary Care Provider [phone] Allergies Active Allergy Reactions Criticality Noted Date [...] mmol/L LAB CHEMISTRY METHOD 10/22/2024 4:[address] [facility] Potassium 4.4 3.5 - 5.5 mmol/L LAB CHEMISTRY METHOD 10/22/2024 4:[address] [facility] Chloride 103 96 - 110 mmol/L LAB CHEMISTRY METHOD 10/22/2024 4:[address] [facility] CO2 24 21 - 32 mmol/L LAB CHEMISTRY METHOD 10/22/2024 4:[address] [facility] Anion Gap 7 3 - 11 LAB CHEMISTRY METHOD 10/22/2024 4:[address] [facility] Glucose 151(H) 70 - 100 mg/dL LAB CHEMISTRY METHOD 10/22/2024 4:[address] [facility] BUN 37(H) 5 - 25 mg/dL LAB CHEMISTRY METHOD 10/22/2024 4:[address] [facility] Creatinine 2.02(H) 0.50 - 1.10 mg/dL LAB CHEMISTRY METHOD 10/22/2024 4:[address] [facility] eGFR 24(L) >=60 mL/min/1. 73m2 LAB CHEMISTRY METHOD 10/22/2024 4:[address] [facility] Comment:Calculation based on the Chronic Kidney Disease Epidemiology Collaboration (CKD-EPI) equation refit without adjustment for race. BUN/Creatinine Ratio 18.3 LAB CHEMISTRY METHOD 10/22/2024 4:46 PM EST [facility] Calcium 9.5 8.5 - 10.5 mg/dL LAB CHEMISTRY METHOD 10/22/2024 4:46 PM EST [facility] Blood Venous blood specimen / Unknown Venipuncture / Unknown 10/22/2024 4:08 PM EST 10/22/2024 4:23 PM EST us Roseline FREDERICK LAB BLOOD ORDERABLES Final Result [facility] ([facility]) [facility] [address] [place] [address], from Last 3 Months or Most Recently Relevant to Health Maintenance Insurance [employer] MEDICARE Advance Directives Documents on File Type Date Recorded Patient Service Center Appraiser Expl anation DNR (Do Not Resuscitate) 10/22/2024 4:31 PM Power of Concreter 10/22/2024 4:29 PM Healthcare Agents on File Name Relationship Healthcare Agent [facility] Communication Tony Collincarmennancy Son Health Care Agent Grupo Collincarmenbie Son First Alternate Health Car e Agent Care Teams Hot Metal Charger Relationship Specialty Start Date End Date Glen Rose MD [address] [place] [address] Dr Dick, [place] [id number] PCP - General Internal Medicine 10/05/12
== END 2025-05-23 11:20 | disposition home or self-care (01) ==
LOC: HO.HKAS 10:44
PROVIDERS: PCP Family Medicine; Visit Provider Internal Medicine Nephrology
DX: I15.0 Renovascular hypertension (principal); I70.1 Atherosclerosis of renal artery; N18.32 Chronic kidney disease, stage 3b
CPT/HCPCS: 99214

== ENCOUNTER → 2025-05-23 10:43 | Outpatient (BNVA) | payer MEDICARE, SELFPAY | PROVIDERS: PCP Family Medicine; Visit Provider Internal Medicine Nephrology | DX: I15.0 Renovascular hypertension (principal); I70.1 Atherosclerosis of renal artery; N18.32 Chronic kidney disease, stage 3b | CPT/HCPCS: 99212 ==

== ENCOUNTER 2025-07-10 11:48 | Outpatient (AMB) | payer MEDICARE, SELFPAY ==
--- NOTE | 2025-07-10 08:59 | A.OFFPC_ITS ---
Vital Signs 07/10/25 09:02 Height 5 ft 7 in Weight 172 lb BMI 26.9 BP 142/80 H Blood Pressure Location Rt brachial Position Sitting Pulse 87 Pulse Source Pulse Oximeter Temp 97 F Temp Source Temporal Artery Scan Pulse Oximetry (%) 96 Oxygen Delivery Method Room Air Intake Visit Reasons: 3 mo F/U - see comments Interior Design Director Required: No Accompanied by: Self / Same As Patient Allergies metformin Allergy (Unknown, Verified 07/10/25 09:03) gi barium sulfate (From Eneset 2) Adverse Reaction (Mild, Verified 07/10/25 09:03) Stomach Upset carvedilol Adverse Reaction (Mild, Verified 07/10/25 09:03) Stomach Upset hydroxyzine Adverse Reaction (Mild, Verified 07/10/25 09:03) Stomach Upset metoprolol Adverse Reaction (Mild, Verified 07/10/25 09:03) Cough lisinopril Adverse Reaction (Unknown, Verified 07/10/25 09:03) cough Statins Support Allergy (Unknown, Uncoded 04/10/25 14:08) mx Medication List - Last Reconciled 07/10/25 by YOLY Benavidez amlodipine 2.5 mg PO BID aspirin 81 mg PO DAILY blood sugar diagnostic (Accu-Chek Guide test strips) use to check blood sugar daily blood-glucose meter (Accu-Chek Guide Glucose Meter) use to check blood sugar daily clopidogrel 75 mg PO DAILY gabapentin 300 mg PO DAILY glimepiride 4 mg PO DAILY lancets (Accu-Chek Softclix Lancets) use to check blood sugar daily Tobacco use date assessed: 07/10/25 Fall risk assessment: No Falls in past year Last assessed Fall Risk: 07/10/25 Dental Screening Dental Screen Date: 07/10/25 Did you have a dental visit in the last 12 months?: No Did you have a dental problem in the last 6 months where you did not have access to dental care?: No HPI HPI Comments History of Present Illness Details The patient is an 85-year-old female with DM, HTN, CAD, PVD, Carotid stenosis and CKD presenting to [facility]. The patient has a history of hypertension, currently managed with amlodipine 2.5mg taken twice daily. Her blood pressure readings have been slightly elevated, and there is consideration for future adjustments if necessary. BP today was 142/80. Type 2 Diabetes Mellitus is managed with glimepiride, and her last A1c was 7.1 in April, indicating moderate control. She experiences gastrointestinal fluctuations, which she attributes to dietary factors. Patient is followed by Cardiology for CAD. She was seen in March. She was suppose to follow up with vascular but they wanted an US with contrast but she could not do the test due to her kidney function. She is waiting for a follow up appointment. She is on aspirin and plavix. The patient has chronic kidney disease, which developed following a bacterial infection that required hospitalization for nine days. Her kidney function is monitored regularly, with the last nephrology visit in May. Hyperlipidemia is present, but the patient cannot tolerate statins due to muscle pain experienced in the past. Alternative lipid-lowering therapies have been considered but are not covered by insurance. Peripheral neuropathy is managed with gabapentin. . The patient has experienced shingles in the past, with recent episodes of nerve irritation without rash. The shingles vaccine was discussed as a preventative measure. She is not sure she is ready for the vaccine at this time. REPLACED BY [facility] Medical History Exertional angina Hyperlipidemia HTN (hypertension) PVD (peripheral vascular disease) Diabetes mellitus CAD (coronary artery disease) Surgical History Hx of appendectomy Stented coronary artery Family History Mother No problems noted. Father No problems noted. Social History Household Members: Children Housing: House Alcohol intake: never Patient Tobacco Use Status: Former Tobacco user e-Cigarette/Vaping Use: Former Use service: No Current occupational status: retired Cognitive needs: No Hearing needs: No Vision needs: Yes (rx glasses) Questionnaire PHQ-9 Over the last 2 weeks, how often have you been bothered by any of the following problems? 1. Little interest or pleasure in doing things: not at all 2. Feeling down, depressed, or hopeless: not at all 3. Trouble falling or staying asleep, or sleeping too much: not at all 4. Feeling tired or having little energy: not at all 5. Poor appetite or overeating: not at all 6. Feeling bad about yourself - or that you are a failure or have let yourself or your family down: not at all 7. Trouble concentrating on things, such as reading the newspaper or watching television: not at all 8. Moving or speaking so slowly that other people could have noticed. Or the opposite - being so fidgety or restless that you have been moving around a lot more than usual: not at all 9. Thoughts that you would be better off or of hurting yourself in some way: not at all Total score: 0 Depression Screening Interpretation: Negative Depression Screening Done: Yes Source: Developed by Drs. August Melendez, Anna Cedeño, Mayank Villanueva and colleagues, with an educational nikita from [employer]. Thrive Questionnaire Date Thrive assessed: 07/10/25 I am a: Patient Within the past 12 months, did the food you bought not last and you didn't have the money to get more?: Never true Within the past 12 months, did you worry whether your food would run out before you got money to buy more?: Never true Do you have trouble paying for medicines?: No Do you have trouble getting transportation to medical appointments?: No Do you have trouble paying your heating and electricity bill?: No Do you have trouble taking care of your child, family member or friend?: No Do you have trouble with day-to-day activities such as bathing, preparing meals, shopping, managing finances, etc.?: No Are you currently unemployed and looking for a job?: No Are you interested in more education?: No THRIVE Score: 0 AUDIT C Alcohol Use Questionnaire (AUDIT-C) 1. How often do you have a drink containing alcohol?: Never 3. How often do you have six or more drinks on one occasion?: Never Total Score: 0 RUSSEL-7 AMB Questionnaire RUSSEL-7 Date RUSSEL - 7 assessed: 07/10/25 Feeling nervous, anxious, or on edge: 0 = Not at all Not being able to stop or control worryin = Not at all Worrying too much about different things: 0 = Not at all Trouble relaxin = Not at all Being so restless that it is hard to sit still: 0 = Not at all Becoming easily annoyed or irritable: 0 = Not at all Feeling afraid as if something awful might happen: 0 = Not at all Total RUSSEL-7 score (0-4 normal; 5-9 mild; 10-14 moderate; 15-21 severe): 0 Source: Developed by Drs. August Melendez, Anna Cedeño, Mayank Villanueva and colleagues, with an educational nikita from [employer]. Review of Systems Const Details: CONSTITUTIONAL Negative HEAD/NECK Negative EAR/NOSE/MOUTH/THROAT Negative RESPIRATORY Negative CARDIOVASCULAR Denies chest pain or dyspnea GASTROINTESTINAL Reports intermittent diarrhea and constipation MUSCULOSKELETAL Negative NEUROLOGICAL Negative PSYCHIATRIC Negative Physical exam (Primary Care) Vital Signs: Last Vital Signs Temp 97 F 07/10/25 09:02 Pulse 87 07/10/25 09:02 BP 142/80 H 07/10/25 09:02 Pulse Ox 96 07/10/25 09:02 Oxygen Delivery Method Room Air 07/10/25 09:02 BMI result Body Mass Index 26.9 GENERAL Well developed, Well nourished, in no apparent distress HEENT Head-Normocephalic Eyes- PERRLA, EOMI, Conjuctiva clear, lids WNL Ears- Canals clear, TMs WNL Mouth/Throat-No lesions, no erythema, no exudate Neck- Supple, No lymphadenopathy, thyroid WNL RESPIRATORY Normal I:E, Clear to auscultation CARDIOVASCULAR Regular, rate and rhythm, No murmurs or rubs GASTROINTESTINAL Soft, nontender, normal bowel sounds, no masses MUSCULOSKELETAL Back-Normal ROM, Tender in Lumbar, Tender with motion, Straight leg raise negative, DTR 2+ symmetrical, Gait normal NEUROLOGICAL Gait normal PSYCHIATRIC Oriented to person, place and time Mood and affect WNL Appearance WNL Speech WNL Thought processes WNL Tobacco/Smoking Status: Tobacco use Status Tobacco use date assessed 07/10/25 07/10/25 09:04 Patient Tobacco Use Status Former Tobacco user 07/10/25 09:04 e-Cigarette/Vaping Use Former Use 07/10/25 09:04 PHQ-9: PHQ-9 Score PHQ-9: Total score 0 07/10/25 11:56 Depression Screening Interpretation: Negative Thrive Assessment: Date of Thrive Assessment Date Thrive assessed 07/10/25 07/10/25 09:04 Coding Level of Care Code Established Pt Est Pt Level 4 (74445) Patient Type Established Diagnoses Diabetes mellitus E11.9 Diabetes mellitus type: type 2 Diabetes mellitus complication status: with circulatory complication Diabetes mellitus fdc insulin use: without long term care social worker use 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 transplanted heart: ely shoshone heart Associated angina: without angina PVD (peripheral vascular disease) I73.9 Bilateral carotid artery stenosis I65.23 Hyperlipidemia E78.5 CKD stage 3b, GFR 30-44 ml/min N18.32 Time Spent (min) 35 Comment Time spent on chart review, medication reconciliation, H&P, Patient education and orders Assessment & Plan Assessment & Plan (1) Diabetes mellitus: Code(s): E11.9 - Type 2 diabetes mellitus without complications Category: Medical Qualifiers: Diabetes mellitus type: type 2 Diabetes mellitus complication status: with circulatory complication Diabetes mellitus fdc insulin use: without fdc use Plan: The patient's diabetes is managed with glimepiride, and her A1c was 7.1% in April, indicating moderate control. Patient will continue current medications. Will monitor. Patient will follow up in 2 months. (2) HTN (hypertension): Comment: BP today was 142/80 Code(s): I10 - Essential (primary) hypertension Category: Medical Qualifiers: Hypertension type: renovascular hypertension Qualified Code(s): I15.0 - Renovascular hypertension Plan: The patient's hypertension is currently managed with amlodipine, and her blood pressure readings have been slightly elevated. A follow-up in two months is planned to reassess and consider medication adjustment if necessary. (3) CAD (coronary artery disease): Code(s): I25.10 - Atherosclerotic heart disease of ely shoshone coronary artery without angina pectoris Category: Medical Qualifiers: Coronary Disease-Associated Artery/Lesion type: [place] artery [place] vs. transplanted heart: ely shoshone heart Associated angina: without angina Qualified Code(s): I25.10 - Atherosclerotic heart disease of ely shoshone coronary artery without angina pectoris Plan: Patient to continue to follow up with Cardiology (4) PVD (peripheral vascular disease): Comment: 03/02/2024 - bilateral iliac stents Code(s): I73.9 - Peripheral vascular disease, unspecified Category: Medical Plan: Patient waiting to follow up with Vascular. Patient will continue current medications. Will monitor. Patient will follow up in 2 months. (5) Bilateral carotid artery stenosis: Code(s): I65.23 - Occlusion and stenosis of bilateral carotid arteries Category: Medical Plan: Patient waiting to follow up with Vascular. Patient will continue current medications. Will monitor. Patient will follow up in 2 months. (6) Hyperlipidemia: Code(s): E78.5 - Hyperlipidemia, unspecified Category: Medical Plan: The patient has hyperlipidemia but cannot tolerate statins due to muscle pain. Alternative treatments have been considered but are not covered by insurance. (7) CKD stage 3b, GFR 30-44 ml/min: Code(s): N18.32 - Chronic kidney disease, stage 3b Category: Medical Plan: The patient has chronic kidney disease, which developed after a bacterial infection requiring hospitalization. Regular nephrology follow-ups are maintained, with the last visit in May. Plan During the visit, we discussed the management of hypertension, diabetes, and kidney function. We also reviewed the patient's intolerance to statins and considered alternative lipid-lowering options, though insurance coverage is an issue. The patient was informed about the shingles vaccine as a preventative measure against future episodes. Patient Instructions: - Continue taking amlodipine and glimepiride as prescribed. - Monitor blood pressure regularly and report any significant changes. - Consider getting the shingles vaccine at a local pharmacy. - Follow up in two months for blood pressure reassessment.
[2025-07-10 09:02] VITALS: BP 142/80; PULSE 87; TEMP 36.1; O2SAT 96; BMI 26.9
--- OUTSIDE RECORDS SUMMARY | 2025-07-10 14:22 | XMS_ITS | Clinical Summary ---
Author Organization [facility] Address [address] [place] [address] Phone Care Team Providers Care Department Clinician Name Role Phone Glen Rose MD Primary Care Provider [phone] Allergies Active Allergy Reactions Criticality Noted Date [...] 09/07/2022 Social Influencers of Health Screening 09/07/2022 Depression Screening 10/05/2024 Diabetes: Annual Urine Albumin-Creatinine Ratio (uACR) 10/22/2024 Diabetes: Blood Sugar Control Test (HGBA1C) 10/22/2024 COVID-19 Vaccine ( season) 2025 11/10/2022, 01/30/2022, 07/16/2021, Additional history exists Influenza Vaccine (#1) 2025 Diabetes: Annual GFR [...] [facility] Comment:Calculation based on the Chronic Kidney Disease Epidemiology Collaboration (CKD-EPI) equation refit without adjustment for race. BUN/Creatinine Ratio 18.3 LAB CHEMISTRY METHOD 10/22/2024 4:46 PM EST [facility] Calcium 9.5 8.5 - 10.5 mg/dL LAB CHEMISTRY METHOD 10/22/2024 4:46 PM EST [facility] Blood Venous blood specimen / Unknown Venipuncture / Unknown 10/22/2024 4:08 PM EST 10/22/2024 4:23 PM EST us Roseline FREDERICK LAB BLOOD ORDERABLES Final Result [facility] ([facility]) [facility] [address] [place] [address], from Last 3 Months or Most Recently Relevant to Health Maintenance Insurance [employer] MEDICARE Advance Directives Documents on File Type Date Recorded Patient Auditor In Charge Expl anation DNR (Do Not Resuscitate) 10/22/2024 4:31 PM Power of Director Non Profit 10/22/2024 4:29 PM Healthcare Agents on File Name Relationship [facility] Tony Collincarmennancy Son Health Care Agent Grupo Collincarmenbie Son First Alternate Health Car e Agent Care Teams Department Clinician Relationship Specialty Start Date End Date Glen Rose MD [address] [place] [address] Dr Dick, [place] [address] PCP - General Internal Medicine 10/05/12
--- OUTSIDE RECORDS SUMMARY | 2025-07-10 14:22 | XMS_ITS | Patient Health Record ---
Author [facility] Address [address] [place] [address] Care Team Providers Care Process Improvement Specialist Name Role Phone Kayla Medrano Unavailable [phone] Allergies Allergen (clinical drug ingredient) Drug/Non Drug Allergy documented on EMR Reaction Allergy Type Onset Date Status hydroxyzine Hydroxyzine Unknown Drug Allergy Act paco lisinopril Lisinopril Unknown Drug Allergy Activ e metformin Metformin Unknown Drug Allergy Active Substance with 7-ndscmia-2-methylgluta ryl-coenzyme A reductase inhibitor mechanism of action [...] Problem Acquired hammer toe of right foot ([id number] ) Other hammer toe(s) (acquired), right foot (M20.41) Active confirmed Problem Acquired hammer toe of left foot ([id number] ) Other hammer toe(s) (acquired), left foot (M20.42) Active confirmed Problem Polyneuropathy due to type 2 diabetes mellitus ([id number]) Type 2 diabetes mellitus with diabetic polyneuropathy (E11.42) Active confirmed Plan Of Treatment Next Appt Details Provider Name:Kayla Chicho Medrano , 08/02/2025 10:30:00 AM, [address] [facility], [place], [address], Insurance Providers Payer Name Payer Address Payer Phone Subscriber Number Group Number Insured Name Patient Relationship to Insured Coverage Start Date Coverage End Date [employer] Medicare [id number] [address] [address] [place] [address] [id number] Anna Herrera Self - patient is the insured Medical (General) History Medical History History ICD Code Diabetic High blood pressure Numbness Surgical History Surgery Date(Month/Year) stents 01/03/2018 appendectomy 1968
== END 2025-07-10 15:12 | disposition home or self-care (01) ==
LOC: HO.HMCHD 11:49
PROVIDERS: PCP Family Medicine; Visit Provider Physician Assistant Medical
DX: E11.9 Type 2 diabetes mellitus without complications (principal); I15.0 Renovascular hypertension; I25.10 Atherosclerotic heart disease of native coronary artery without angina pectoris; I73.9 Peripheral vascular disease, unspecified; I65.23 Occlusion and stenosis of bilateral carotid arteries; E78.5 Hyperlipidemia, unspecified; N18.32 Chronic kidney disease, stage 3b

== ENCOUNTER → 2025-07-10 11:48 | Outpatient (BNVA) | payer MEDICARE, SELFPAY | PROVIDERS: PCP Family Medicine; Visit Provider Physician Assistant Medical | DX: E11.22 Type 2 diabetes mellitus with diabetic chronic kidney disease (principal); N18.32 Chronic kidney disease, stage 3b; I15.0 Renovascular hypertension; I25.10 Atherosclerotic heart disease of native coronary artery without angina pectoris; I73.9 Peripheral vascular disease, unspecified; I65.23 Occlusion and stenosis of bilateral carotid arteries; E78.5 Hyperlipidemia, unspecified; E11.42 Type 2 diabetes mellitus with diabetic polyneuropathy; Z79.84 Long term (current) use of oral hypoglycemic drugs; Z79.899 Other long term (current) drug therapy; Z13.31 Encounter for screening for depression; Z13.39 Encounter for screening examination for other mental health and behavioral disorders | CPT/HCPCS: 96127; 99212 ==

== ENCOUNTER 2025-09-21 11:37 | Outpatient (AMB) | payer MEDICARE, SELFPAY ==
[2025-09-21 12:00] VITALS: BP 126/70; PULSE 79; O2SAT 94; BMI 27.0
--- NOTE | 2025-09-21 12:00 | HO.NEPHOV ---
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: No Accompanied by: Self / Same As Patient Allergies metformin Allergy (Unknown, Verified 09/21/25 12:01) gi barium sulfate (From Eneset 2) Adverse Reaction (Mild, Verified 09/21/25 12:01) Stomach Upset carvedilol Adverse Reaction (Mild, Verified 09/21/25 12:01) Stomach Upset hydroxyzine Adverse Reaction (Mild, Verified 09/21/25 12:01) Stomach Upset metoprolol Adverse Reaction (Mild, Verified 09/21/25 12:01) Cough lisinopril Adverse Reaction (Unknown, Verified 09/21/25 12:01) cough Statins Support Allergy (Unknown, Uncoded 04/10/25 14:08) mx HPI Comments Details: I had the privilege of seeing of seeing Anna in follow up for CKD and hypertension. She is a 85 year old with H/O PAD as well as CAD. She is hypertensive on medications. She denied any retinopathy or neuropathy, CVA, CHF, renal stones, new bone or back pain, hypercalcemia, edema, hematuria, sensori neural deafness, epistaxis, photosensitivity, recent infection, skin rashes. Her serum creatinine has been stable. She has no new systemic symptoms. She has left KATHY. She feels well [facility] Medical History Exertional angina Hyperlipidemia HTN (hypertension) PVD (peripheral vascular disease) Diabetes mellitus CAD (coronary artery disease) Surgical History Hx of appendectomy Stented coronary artery Family History Mother No problems noted. Father No problems noted. Social History Household Members: Children Housing: House Alcohol intake: never Patient Tobacco Use Status: Former Tobacco user e-Cigarette/Vaping Use: Former Use service: No Current occupational status: retired Cognitive needs: No Hearing needs: No Vision needs: Yes (rx glasses) Review of Systems Const All systems reviewed & are unremarkable except as noted in HPI and below Physical Exam Const General: comfortable and no acute distress Orientation/consciousness: patient oriented x3 HEENT Head: Yes normocephalic Mouth: Normal oral and palatal mucosa present Eyes EOM: EOMs intact bilaterally Neck Neck: Yes supple Resp Auscultation: clear to auscultation bilaterally Cardio Jugular venous distension: no JVD Rate: regular rate GI Palpation (GI): Soft to palpation Auscultation: normal bowel sounds General: Yes no CVA tenderness Back/Spine/Pelvis Back: no CVA tenderness Skin General skin exam: no rashes or lesions noted Neuro General: patient oriented x3 and moves all extremities Extrem General: Yes no pedal edema Assessment & Plan Assessment & Plan (1) Renal artery stenosis, [place]: Code(s): I70.1 - Atherosclerosis of renal artery Category: Medical (2) HTN (hypertension): Code(s): I10 - Essential (primary) hypertension Category: Medical Qualifiers: Hypertension type: renovascular hypertension Qualified Code(s): I15.0 - Renovascular hypertension (3) CKD stage 3b, GFR 30-44 ml/min: Code(s): N18.32 - Chronic kidney disease, stage 3b Category: Medical Plan Anna has progressive decline GFR likely due to renovascular disease which was confirmed by imaging. She has coronary artery disease as well as PAD. She is on aspirin and Plavix. There is no reason to suspect any cholesterol embolism. Her blood pressure is currently controlled with amlodipine. She maintains good hydration and avoids nonsteroidal anti-inflammatories. ( She was on Jardiance- was not agreeing with her as per patient). Her 24 hour urine for creatinine clearance showed GFR of 32 mls/ mt. No medication changes made today. Answered all questions and follow-up given Orders: Orders Blood Urea Nitrogen 6 Months I15.0 - Renovascular hypertension, I70.1 - Atherosclerosis of renal artery, N18.32 - Chronic kidney disease, stage 3b Creatinine 6 Months I15.0 - Renovascular hypertension, I70.1 - Atherosclerosis of renal artery, N18.32 - Chronic kidney disease, stage 3b Calcium 6 Months I15.0 - Renovascular hypertension, I70.1 - Atherosclerosis of renal artery, N18.32 - Chronic kidney disease, stage 3b Creatinine Today I15.0 - Renovascular hypertension, I70.1 - Atherosclerosis of renal artery, N18.32 - Chronic kidney disease, stage 3b Blood Urea Nitrogen Today I15.0 - Renovascular hypertension, I70.1 - Atherosclerosis of renal artery, N18.32 - Chronic kidney disease, stage 3b Electrolytes Today I15.0 - Renovascular hypertension, I70.1 - Atherosclerosis of renal artery, N18.32 - Chronic kidney disease, stage 3b Calcium Today I15.0 - Renovascular hypertension, I70.1 - Atherosclerosis of renal artery, N18.32 - Chronic kidney disease, stage 3b Electrolytes 6 Months I15.0 - Renovascular hypertension, I70.1 - Atherosclerosis of renal artery, N18.32 - Chronic kidney disease, stage 3b Coding Level of Care Code Est Pt Level 4 (44746) Diagnoses Renal artery stenosis, [place] I70.1 Renovascular hypertension I15.0 Hypertension type: renovascular hypertension CKD stage 3b, GFR 30-44 ml/min N18.32
--- OUTSIDE RECORDS SUMMARY | 2025-09-21 15:19 | XMS_ITS | Clinical Summary ---
Author Organization [facility] Address [address] [place] [address] Phone Care Team Providers Care Air Conditioning Manager Name Role Phone Glen Rose MD Primary Care Provider [phone] Allergies Active Allergy Reactions Criticality Noted Date [...] Orientation Straight 10/22/2024 4: 20 PM EST Last Filed Vital Signs Vital Sign Reading [...] LAB CHEMISTRY METHOD 10/22/2024 4:[address] [facility] Calcium 9.5 8.5 - 10.5 mg/dL LAB CHEMISTRY METHOD 10/22/2024 4:[address] 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
--- OUTSIDE RECORDS SUMMARY | 2025-09-21 15:19 | XMS_ITS | Patient Health Record ---
[facility] [place] Address [address] [place] [address] Care Team Providers Care Safety Compliance Specialist Name Role Phone Kayla Medrano Unavailable [phone] Allergies Allergen (clinical drug ingredient) Drug/Non Drug Allergy documented on EMR Reaction Allergy Type Onset Date Status Aleve Unknown Drug Allergy Active Substance with beta adrenergic receptor antagonist mechanism of action (substance) Beta Adrenergic Blockers Unknown Drug Allergy Active hydroxyzine Hydroxyzine Unknown Drug Allergy Act paco lisinopril Lisinopril Unknown Drug Allergy Activ e metformin Metformin Unknown Drug Allergy Active Substance with 7-bdjbfpk-0-methylgluta ryl-coenzyme A reductase inhibitor mechanism of action (substance) Statins Unknown Drug Allergy Active Results Component Value Reference Range Notes HEMOGLOBIN A1C (GLYCOHEMOGLO BIN) Reviewed date:08/02/2025 10:37:59 AM Interpretation: Performing Lab: Notes/Report: HEMOGLOBIN A1C % (HH) 7.2 Reason For Referral No Information Medications Medication SIG (Take, Route, Frequency, Duration) Notes Start Date End Date Status Glimepiride 4 MG 1 tablet with breakf ast or the first main meal of the day Orally Once a day; Duration: 30 day(s) Active Losartan Potassium 50 MG 1 tablet Orally Once a day; Duration: 30 day(s) Not-Aren ing Gabapentin 300 MG 1 capsule Orally Onc e a day Active Extra Depth Orthopedic Shoes (1 Pair) with Customized Heat Molded Multidensity Innersoles (3 Pair) as directed Dx: NIDDM/Polyneuropathy (E11.42), Hammertoe Foot Deformity (M20.41,M20.42), Preulcerative Skin Lesion(s) (L85.1 Active Aspirin 81 81 MG 1 tablet Orally Once a day; Duration: 30 day(s) Active amLODIPine Besylate 10 MG 1 tablet Orally Once a day; Duration: 30 day(s) Active Clopidogrel Bisulfate 75 MG 1 tablet Orally Once a day; Duration: 30 day(s) Active Immunizations Vaccine Route Administration Date Status Comme nts Influenza Unknown 01/22/2021 Refused Influenza Unknown 08/02/2025 Refused Social History Tobacco Use: Social History Observation Description Date Details (start date - stop date) Never Smoker NA - NA Tobacco use other than smoking: Question Answer Notes Are you an other tobacco user? No Tobacco Control (Standard) Question Answer Notes Tobacco use: Nonsmoker Additional Findings: Tobacco non-user Current no nsmoker AUDIT-C (Standard) Question Answer Notes Did you have a drink containing alcohol in the p ast year? No Points 0 Interpretation Negative Problems Problem Type SNOMED Code ICD Code Onset Dates Problem Status W/U Status Risk Notes Problem Acquired hammer toe of right foot (4598305723277944 ) Other hammer toe(s) (acquired), right foot (M20.41) Active confirmed Problem Acquired hammer toe of left foot (2187665588483737 ) Other hammer toe(s) (acquired), left foot (M20.42) Active confirmed Problem Polyneuropathy due to type 2 diabetes mellitus (433695682) Type 2 diabetes mellitus with diabetic polyneuropathy (E11.42) Active confirmed Vital Signs Blood pressure diastolic 80 mm Hg 08/02/2025 Height 5 ft 7 in in 08/02/2025 Blood pressure systolic 135 mm Hg 08/02/2025 Weight 170 lbs 08/02/2025 BMI 26.62 kg/m2 08/02/2025 Procedures Procedure Date Ordered Date Performed Result Body Sit e 90862-Gninifyw Plate 08/02/2025 N/A 47518-Lgslxqcm Plate Each Additional 08/02/2025 N/A 12461-WCIM SKIN LESIONS, 2 TO 4 08/02/2025 N/A Q7479-ADLIYLMT DYSTROPHIC NAILS ANY # 08/02/2025 N/A Encounters Encounter Location Date Provider Diagnosis [facility] [address] 08/02/2025 Kayla Black Type 2 diabetes mellitus with diabetic polyneuropathy E11.42 ; Other hammer toe(s) (acquired), right foot M20.41 ; Other hammer toe(s) (acquired), left foot M20.42 and Ingrown nail L60.0 [facility] [address] [place] [address] 08/23/2025 Kayla Medrano Assessments Encounter Date Diagnosis (ICD Code) Assessment Notes Treatment Notes Treatment Clinical Notes Section Notes 08/02/2025 Other hammer toe(s) (acquired), right foot (ICD-10 - M20.41) Patient Educated with: DIABETIC FOOT CARE INSTRUCTIONS. pdf (DIABETIC FOOT CARE INSTRUCTIONS. pdf) 08/02/2025 Type 2 diabetes mellitus with diabetic polyneuropathy (ICD-10 - E11.42) 08/02/2025 Other hammer toe(s) (acquired), left foot (ICD-10 - M20.42) 08/02/2025 Ingrown nail (ICD-10 - L60.0) Plan Of Treatment Pending Test Test Name Order Date 73728-Zkhsaxte Plate 08/02/2025 66621-Vqcttiow Plate Each Additional 15344-NOVH SKIN LESIONS, 2 TO 4 08/02/20 25 X5488-WBLLXYWB DYSTROPHIC NAILS ANY # Insurance Providers Payer Name Payer Address Payer Phone Subscriber Number Group Number Insured Name Patient Relationship to Insured Coverage Start Date Coverage End Date [employer] Medicare [id number] [address] [address] [place] [phone] [id number] Anna Herrera Self - patient is the insured Medical (General) History Medical History History ICD Code Diabetic High blood pressure Numbness Broken bones Heart disease Kidney disease Poor circulation Sciatica Surgical History Surgery Date(Month/Year) stents 01/03/2018 appendectomy 1968
== END 2025-09-21 12:13 | disposition home or self-care (01) ==
LOC: HO.HKAS 11:38
PROVIDERS: PCP Family Medicine; Visit Provider Internal Medicine Nephrology
DX: I70.1 Atherosclerosis of renal artery (principal); I15.0 Renovascular hypertension; N18.32 Chronic kidney disease, stage 3b
CPT/HCPCS: 99214

== ENCOUNTER 2025-09-21 11:37 | Outpatient (REF) | payer MEDICARE, SELFPAY ==
[2025-09-21 18:32] LABS: Anion Gap 14 (12-20); Blood Urea Nitrogen 29 mg/dL (9-16); Calcium 10.2 mg/dL (8.4-10.2); Carbon Dioxide 27 mmol/L (22-29); Chloride 103 mmol/L (96-108); Estimated Glomerular Filt Rate 26; Potassium 5.1 mmol/L (3.3-5.1); Sodium 139 mmol/L (135-145)
== END 2025-09-21 11:38 | disposition home or self-care (01) ==
LOC: HO.HKASLDS 11:37
PROVIDERS: PCP Family Medicine; Visit Provider Internal Medicine Nephrology
DX: I70.1 Atherosclerosis of renal artery (principal); I15.0 Renovascular hypertension; N18.32 Chronic kidney disease, stage 3b; Z87.891 Personal history of nicotine dependence
CPT/HCPCS: 36415; 80051; 82310; 82565; 84520